=== PATIENT | male | born 1945 | race Caucasian/White ===

== ENCOUNTER 2017-09-30 04:21 | Emergency (ER) | payer OTHER ==
--- NOTE | 2017-09-30 04:40 | PDOC ---
History of Present Illness - General Stated Complaint: CATHETER PROBLEM Time Seen by Provider: 09/30/17 04:40 - History of Present Illness Initial Comments: 09/30/17 04:41 Mr. Lake is an 72 yo male w/ pmh of DM, HTN, afib (not on anticoagulants), prior GI bleed, BPH with recent TURP, and indwelling catheter who presents w/ complaints of clogged catheter. He reports he first noticed that it was clogged around 5pm last night but hoped it would clear by itself. When it did not he presented to ED. The patient denies chest pain, shortness of breath, headache and dizziness. Denies fever, chills, nausea, vomit, diarrhea and constipation. Denies dysuria, frequency, urgency and hematuria. Allergies: Ibuprofen Past History - Past Medical History Allergies/Adverse Reactions: Allergies Allergy/AdvReac Type Severity Reaction Status Date / Time ibuprofen [From Motrin] Allergy Intermediate "STOMACH Verified 09/30/17 05:23 BURST" REQUIRING SX & BLOOD TRANSFUSION. Home Medications: Ambulatory Orders Atorvastatin Ca [Lipitor -] 40 mg PO HS 11/08/14 Calcium Carbonate [Calcium] 500 mg PO ASDIR 11/08/14 Cod Liver Oil 1 each PO ASDIR 11/08/14 Docusate Sodium [Dulcolax Stool Softener] 100 mg PO BID 11/08/14 Enalapril Maleate [Vasotec -] 5 mg PO DAILY 11/08/14 Finasteride [Proscar -] 5 mg PO BID 11/08/14 Folic Acid - 1 mg PO DAILY 11/08/14 Insulin Glargine,Hum.rec.anlog [Lantus Solostar PEN (NF)] 0 units SQ HS Rivaroxaban [Xarelto -] 15 mg PO DAILY 11/08/14 Tamsulosin HCl [Flomax] 0.4 mg PO DAILY 11/08/14 Torsemide [Demadex] 100 mg PO DAILY 11/08/14 Cardiac Disorders: Yes (H/O A FIB.) Diabetes: Yes HTN: Yes - Surgical History Abdominal Surgery: Yes ("STOMACH BURST", HERNIA) Cardiac Surgery: Yes (BYPASS, ABLATION) - Suicide/Smoking/Psychosocial Hx Smoking History: Never smoked Have you smoked in the past 12 months: No Hx Alcohol Use: No Substance Use Type: None Review of Systems - Review of Systems Comments:: 09/30/17 04:48 GENERAL/CONSTITUTIONAL: No fever or chills. No weakness. HEAD, EYES, EARS, NOSE AND THROAT: No change in vision. No ear pain or discharge. No sore throat. CARDIOVASCULAR: No chest pain or shortness of breath RESPIRATORY: No cough, wheezing, or hemoptysis. GASTROINTESTINAL: No nausea, vomiting, diarrhea or constipation. GENITOURINARY: +Inability to use catheter since 5pm last night. MUSCULOSKELETAL: No joint or muscle swelling or pain. No neck or back pain. SKIN: No rash NEUROLOGIC: No headache, vertigo, loss of consciousness, or change in strength/ sensation. ENDOCRINE: No increased thirst. No abnormal weight change HEMATOLOGIC/LYMPHATIC: No anemia, easy bleeding, or history of blood clots. ALLERGIC/IMMUNOLOGIC: No hives or skin allergy. *Physical Exam - Physical Exam Comments: 09/30/17 04:49 GENERAL: Awake, alert, and fully oriented, in no acute distress HEAD: No signs of trauma, normocephalic, atraumatic EYES: PERRLA, EOMI, sclera anicteric, conjunctiva clear ENT: Auricles normal inspection, hearing grossly normal, nares patent, oropharynx clear without exudates. Moist mucosa NECK: Normal ROM, supple, no lymphadenopathy, JVD, or masses LUNGS: No distress, speaks full sentences, clear to auscultation bilaterally HEART: Regular rate and rhythm, normal S1 and S2, no murmurs, rubs or gallops, peripheral pulses normal and equal bilaterally. ABDOMEN: Soft, nontender, normoactive bowel sounds. No guarding, no rebound. No masses EXTREMITIES: Normal inspection, Normal range of motion, no edema. No clubbing or cyanosis. NEUROLOGICAL: Cranial nerves II through XII grossly intact. Normal speech, no focal sensorimotor deficits SKIN: Warm, Dry, normal turgor, no rashes or lesions noted. : Urinary catheter in place. Not currently draining while in ER. Medical Decision Making - Medical Decision Making 09/30/17 06:08 Mr. Lake is a 72 yo male w/ pmh as described who presents with clogged urinary catheter. Catheter flushed successfully and urine no free flowing - 300cc noted added to urinary bag. Will d/c patient to home with instructions to return for any further problems. *DC/Admit/Observation/Transfer Diagnosis at time of Disposition: Urinary catheter insertion/adjustment/removal - Discharge Dispostion Disposition: HOME - Referrals Referrals: Nelda Thakkar [Primary Care Provider] - - Patient Instructions Printed Discharge Instructions: How to Care for Your Barnett Catheter -- Male Additional Instructions: Please return to ER if any further catheter problems, and fever, chills, pain, or other concerning symptoms. - Post Discharge Activity
[2017-09-30 05:23] VITALS: BP 137/63; PULSE 69; TEMP 97.6; BMI 25.0
--- NOTE | 2017-10-05 12:33 | EKG ---
Test Reason : Blood Pressure : / mmHG Vent. Rate : 076 BPM Atrial Rate : 078 BPM P-R Int : 000 ms QRS Dur : 126 ms QT Int : 440 ms P-R-T Axes : 000 057 161 degrees QTc Int : 495 ms ATRIAL FIBRILLATION WITH PVC'S NON-SPECIFIC INTRA-VENTRICULAR CONDUCTION BLOCK OLD INFERIOR INFARCT T WAVE ABNORMALITY, CONSIDER INFEROLATERAL ISCHEMIA ABNORMAL ECG NO PREVIOUS ECGS AVAILABLE Confirmed by LAI COLLINS, ALLISON ([id number]) on 10/05/2017 12:33:44 PM Referred By: Confirmed By:ALLISON HOYT MD
== END 2017-09-30 06:35 | disposition home or self-care (01) ==
LOC: JER 04:21
PROC: 3C1ZX8Z Irrigation of Indwelling Device using Irrigating Substance, External Approach (ICD-10-PCS; principal; 2017-09-30)
DX: T83.098A Other mechanical complication of other urinary catheter, initial encounter (principal)
CPT/HCPCS: 53899; 93005; 93010; 99281-25

== ENCOUNTER 2017-10-05 04:06 | Emergency (ER) | payer OTHER ==
[2017-10-05 04:21] VITALS: BP 156/88; PULSE 68; TEMP 97.4; BMI 25.0
--- NOTE | 2017-10-05 04:33 | PDOC ---
History of Present Illness - General Chief Complaint: Urinary Problem Stated Complaint: UNABLE TO URINATE Time Seen by Provider: 10/05/17 04:15 - History of Present Illness Initial Comments: 10/05/17 04:16 CHIEF COMPLAINT: urinary retention HISTORY OF PRESENT ILLNESS: 72 yo male w/ PMH of DM, HTN, afib (not on anticoagulants), prior GI bleed, BPH with recent TURP, and indwelling catheter who presents w/ concerns of urinary retention. Patient states he went to his urologist today to have indwelling catheter removed "because I've had it in a while." He states he was able to urinate "kind of ok" in office, but after he went home he could only "get a little dribble out, and I haven't urinated in 12 hours now." He reports feeling bloated but denies any pain at this time. He states that he would like to have a correa catheter inserted to manage his retention and he will follow up with his urology MD Yesenia. PAST MEDICAL HISTORY: Denies past medical history FAMILY HISTORY: Denies SOCIAL HISTORY: Denies tobacco, alcohol, illicit drug use. SURGICAL HISTORY: Denies ALLERGIES: ibuprofen REVIEW OF SYSTEMS General/Constitutional: Denies fever or chills. Denies weakness, weight change. HEENT: Denies change in vision. Denies ear pain or discharge. Denies sore throat. Cardiovascular: Denies chest pain or shortness of breath. Respiratory: Denies cough, wheezing, or hemoptysis. Gastrointestinal: Denies nausea, vomiting, diarrhea or constipation. Denies rectal bleeding. Genitourinary: Denies dysuria, frequency, or change in urination. Musculoskeletal: Denies joint or muscle swelling or pain. Denies neck or back pain. Skin and breasts: Denies rash or easy bruising. Neurologic: Denies headache, vertigo, loss of consciousness, or loss of sensation. Psychiatric: Denies depression or anxiety. Endocrine: Denies increased thirst. Denies abnormal weight change. Hematologic/Lymphatic: Denies anemia, easy bleeding, or history of blood clots. Allergic/Immunologic: Denies hives or skin allergy. Denies latex allergy. PHYSICAL EXAM General Appearance: Well-appearing, appropriately dressed. No apparent distress , no intoxication. HEENT: EOMI, PERRLA, normal ENT inspection, normal voice, TMs normal, pharynx normal. No conjunctival pallor. No photophobia, scleral icterus. Neck: Supple. Trachea midline. No tenderness, rigidity, carotid bruit, stridor , lymphadenopathy, or thyromegaly. Respiratory/Chest: Lungs CTAB. No shortness of breath, chest tenderness, respiratory distress, accessory muscle use. No crackles, rales, rhonchi, stridor , wheezing, dullness Cardiovascular: RRR. S1, S2. No JVD, murmur, bradycardia, tachycardia. Vascular Pulses: Dorsalis-Pedis (R): 2+, Dorsalis-Pedis (L): 2+ Gastrointestinal/Abdominal: Normal bowel sounds. Abdomen soft, non-distended. No tenderness or rebound tenderness. No organomegaly, pulsatile mass, guarding , hernia, hepatomegaly, splenomegaly. Lymphatic: No adenopathy, tenderness. Musculoskeletal/Extremities: Normal inspection. FROM of all extremities, normal capillary refill. Pelvis Stable. No CVA tenderness. No tenderness to extremities, pedal edema, swelling, erythema or deformity. Integumentary: Appropriate color, dry, warm. No cyanosis, erythema, jaundice or rash Neurologic: firebreak cutter II-XII intact. Fully oriented, alert. Appropriate mood/affect. Motor strength 5/5. No appreciable EOM palsy, facial droop or sensory deficit. 10/05/17 04:33 Past History - Past Medical History Allergies/Adverse Reactions: Allergies Allergy/AdvReac Type Severity Reaction Status Date / Time ibuprofen [From Motrin] Allergy Intermediate "STOMACH Verified 10/05/17 04:08 BURST" REQUIRING SX & BLOOD TRANSFUSION. Home Medications: Ambulatory Orders Cod Liver Oil 1 each PO ASDIR 11/08/14 Docusate Sodium [Dulcolax Stool Softener] 50 mg PO BID 11/08/14 Finasteride [Proscar -] 40 mg PO BID 11/08/14 Folic Acid - 1 mg PO DAILY 11/08/14 Calcitriol [Rocaltrol -] 0.25 mcg PO TID 09/30/17 Diclofenac Sodium [Solaraze] 100 gm TP 09/30/17 Magnesium Hydroxide [Milk of Magnesia] 400 mg PO QID 09/30/17 Misoprostol 200 mcg PO TID 09/30/17 Nitrofurantoin Macrocrystal [Macrodantin] 100 mg PO BID 09/30/17 Pantoprazole Sodium [Protonix] 40 mg PO BID 09/30/17 Potassium Chloride [Klor-Con 10] 20 meq PO DAILY 09/30/17 Sennosides [Senna] 8.6 mg PO ONCE 09/30/17 Sodium Bicarbonate 650 mg PO TID 09/30/17 Cardiac Disorders: Yes (H/O A FIB.) COPD: No Diabetes: Yes HTN: Yes - Surgical History Abdominal Surgery: Yes ("STOMACH BURST", HERNIA) Cardiac Surgery: Yes (BYPASS, ABLATION) - Suicide/Smoking/Psychosocial Hx Smoking History: Never smoked Have you smoked in the past 12 months: No Hx Alcohol Use: No Drug/Substance Use Hx: No Substance Use Type: None Medical Decision Making - Medical Decision Making 72 yo male w/ PMH of DM, HTN, afib (not on anticoagulants), prior GI bleed, BPH with recent TURP, and indwelling catheter who presents w/ concerns of urinary retention. -correa catheter inserted -Ua, UCx 10/05/17 06:27 UA + for UTI. Patient reports he is already taking Macrobid, he states urology started him on that medicatoin "about a week ago" and still has 3 weeks left of a 30 day course. Advised patient to continue medication as prescribed and follow up with urologist today as planned. Advised patient of signs and symptoms for return to ED. Patient verbalized understanding and agrees to plan. *DC/Admit/Observation/Transfer Diagnosis at time of Disposition: Urinary catheter insertion/adjustment/removal Urinary tract infection associated with catheterization of urinary tract Qualifiers: Indwelling urinary catheter type: indwelling urethral catheter Encounter type: subsequent encounter Qualified Code(s): T83.511D - Infection and inflammatory reaction due to indwelling urethral catheter, subsequent encounter; N39.0 - Urinary tract infection, site not specified; N39.0 - Urinary tract infection, site not specified - Discharge Dispostion Disposition: HOME Condition at time of disposition: Stable Admit: No - Referrals - Patient Instructions Printed Discharge Instructions: DI for Urinary Retention in Men, DI for Urinary Tract Infection (UTI) Additional Instructions: As discussed, please follow up with Dr. Patterson today as planned. Continue taking the antibiotics Dr. Patterson prescribed. If you do not hear back regarding your urine culture in 2-3 days, please call us to confirm that you have the correct antibiotics for your infection. If you develop any fever, chills, nausea, vomiting, diarrhea, or any new or worsening symptoms, please return to the ER. - Post Discharge Activity
[2017-10-05 05:59] LABS: URINE APPEARANCE CLOUDY; URINE BILIRUBIN NEGATIVE (NEGATIVE); URINE BLOOD 2+ (NEGATIVE); URINE COLOR YELLOW; URINE GLUCOSE (UA) NEGATIVE (NEGATIVE); URINE KETONE NEGATIVE (NEGATIVE); URINE NITRITE NEGATIVE (NEGATIVE); URINE UROBILINOGEN NEGATIVE mg/dL (0.2-1.0)
[2017-10-05 06:05] LABS: URINE LEUK ESTERASE 3+ (NEGATIVE); URINE PROTEIN 2+ (NEGATIVE)
[2017-10-05 06:06] LABS: URINE BACTERIA MANY /hpf (NONE SEEN); URINE HYALINE CAST 2 /lpf; URINE MUCUS RARE
== END 2017-10-05 06:36 | disposition home or self-care (01) ==
LOC: JER 04:06
DX: T83.511A Infection and inflammatory reaction due to indwelling urethral catheter, initial encounter (principal); N39.0 Urinary tract infection, site not specified; I10 Essential (primary) hypertension; E11.9 Type 2 diabetes mellitus without complications; I48.91 Unspecified atrial fibrillation
CPT/HCPCS: 81003; 81015; 87086; 87186; 99281-25

== ENCOUNTER 2017-10-14 00:10 | Emergency (ER) | payer OTHER ==
--- NOTE | 2017-10-14 01:23 | PDOC ---
History of Present Illness - General Stated Complaint: CATHETER PROBLEM Time Seen by Provider: 10/14/17 01:13 - History of Present Illness Initial Comments: 10/14/17 01:31 Patient is a 72-year-old male with past medical history of DM, HTN, A. fib on several toe, prior GI bleed, BPH with recent TURP and current indwelling catheter who presents to the emergency department today stating that he feels like his catheter is clogged. He states that he emptied his urinary bag this afternoon. Since then he is only seen minimal output in the back. He states that his bladder feels full. He is currently on antibiotics for UTI. Denies dysuria frequency and hematuria. Denies fevers, chills, abdominal pain, shortness of breath, chest pain, nausea, vomiting and diarrhea. Past History - Past Medical History Allergies/Adverse Reactions: Allergies Allergy/AdvReac Type Severity Reaction Status Date / Time ibuprofen [From Motrin] Allergy Intermediate "STOMACH Verified 10/14/17 01:40 BURST" REQUIRING SX & BLOOD TRANSFUSION. Home Medications: Ambulatory Orders Cod Liver Oil 1 each PO ASDIR 11/08/14 Docusate Sodium [Dulcolax Stool Softener] 50 mg PO BID 11/08/14 Finasteride [Proscar -] 40 mg PO BID 11/08/14 Folic Acid - 1 mg PO DAILY 11/08/14 Calcitriol [Rocaltrol -] 0.25 mcg PO TID 09/30/17 Diclofenac Sodium [Solaraze] 100 gm TP 09/30/17 Magnesium Hydroxide [Milk of Magnesia] 400 mg PO QID 09/30/17 Misoprostol 200 mcg PO TID 09/30/17 Nitrofurantoin Macrocrystal [Macrodantin] 100 mg PO BID 09/30/17 Pantoprazole Sodium [Protonix] 40 mg PO BID 09/30/17 Potassium Chloride [Klor-Con 10] 20 meq PO DAILY 09/30/17 Sennosides [Senna] 8.6 mg PO ONCE 09/30/17 Sodium Bicarbonate 650 mg PO TID 09/30/17 Cardiac Disorders: Yes (H/O A FIB.) COPD: No Diabetes: Yes HTN: Yes - Surgical History Abdominal Surgery: Yes ("STOMACH BURST", HERNIA) Cardiac Surgery: Yes (BYPASS, ABLATION) - Suicide/Smoking/Psychosocial Hx Smoking History: Never smoked Have you smoked in the past 12 months: No Hx Alcohol Use: No Drug/Substance Use Hx: No Substance Use Type: None *DC/Admit/Observation/Transfer Diagnosis at time of Disposition: Urinary catheter insertion/adjustment/removal - Discharge Dispostion Disposition: HOME Condition at time of disposition: Good Admit: No - Referrals - Patient Instructions Printed Discharge Instructions: How to Care for Your Barnett Catheter -- Male Additional Instructions: The catheter was flushed today. Please keep your follow-up appointment with Dr. Patterson on Monday. Return to the emergency department if your catheter becomes clogged, or if develops fevers or have any other new or concerning symptoms. - Post Discharge Activity
--- NOTE | 2017-10-14 02:08 | PDOC ---
*Physical Exam - Vital Signs Last Vital Signs Temp Pulse Resp BP Pulse Ox 98.3 F 89 18 129/63 99 10/14/17 01:37 10/14/17 01:37 10/14/17 01:37 10/14/17 01:37 10/14/17 01:37 - Physical Exam Comments: 10/14/17 02:08 The patient was examined by [SINAI Aguirre] under my direct supervision. I personally evaluated the patient. I concur with the above findings and the plan of care. *DC/Admit/Observation/Transfer Diagnosis at time of Disposition: Urinary catheter insertion/adjustment/removal - Discharge Dispostion Disposition: HOME Condition at time of disposition: Good - Referrals - Patient Instructions Printed Discharge Instructions: How to Care for Your Barnett Catheter -- Male Additional Instructions: The catheter was flushed today. Please keep your follow-up appointment with Dr. Patterson on Monday. Return to the emergency department if your catheter becomes clogged, or if develops fevers or have any other new or concerning symptoms. - Post Discharge Activity
[2017-10-14 02:30] LABS: URINE APPEARANCE TURBID; URINE BILIRUBIN NEGATIVE (NEGATIVE); URINE BLOOD 1+ (NEGATIVE); URINE COLOR YELLOW; URINE GLUCOSE (UA) NEGATIVE (NEGATIVE); URINE KETONE NEGATIVE (NEGATIVE); URINE NITRITE NEGATIVE (NEGATIVE); URINE UROBILINOGEN NEGATIVE mg/dL (0.2-1.0)
[2017-10-14 02:34] LABS: URINE LEUK ESTERASE 3+ (NEGATIVE); URINE PROTEIN 2+ (NEGATIVE)
[2017-10-14 02:37] LABS: URINE BACTERIA FEW /hpf (NONE SEEN); URINE MUCUS RARE
[2017-10-14 03:12] VITALS: BP 129/63; PULSE 89; TEMP 98.3; BMI 25.0
== END 2017-10-14 02:54 | disposition home or self-care (01) ==
LOC: JER 00:10
PROC: 3C1ZX8Z Irrigation of Indwelling Device using Irrigating Substance, External Approach (ICD-10-PCS; principal; 2017-10-14)
DX: T83.098A Other mechanical complication of other urinary catheter, initial encounter (principal); I10 Essential (primary) hypertension; N40.0 Benign prostatic hyperplasia without lower urinary tract symptoms; Z98.890 Other specified postprocedural states
CPT/HCPCS: 53899; 81003; 81015; 82962; 87086; 87186; 99283-25

== ENCOUNTER 2017-10-18 19:03 | Inpatient (IN) | payer OTHER ==
--- NOTE | 2017-10-18 21:04 | PDOC ---
History of Present Illness - General History Source: Patient Exam Limitations: No Limitations - History of Present Illness Initial Comments: 10/18/17 21:47 The patient is a 72 year old male with a significant past medical history of hypertension, hyperlipidemia, diabetes, GERD, AFib(on Xarelto), CAD, BPH, neurogenic bladder, GI bleed, chronic UTIs, who presents to the emergency department complaining of urinary retention for approximately 1 day. The patient reports his last bladder movement was at approximately 14:00 today, where he only expelled several droplets. Patient reports associated lower abdominal tenderness and distension. Patient reports he recently had a catheter removed 2 days ago, which he had over the past 1.5 years secondary to urinary retention over the past year. Patient reports blood was seen at the time of the catheter removal. Patient was placed on Clindamycin and Nitrofurantoin. He denies any recent dysuria or frequency. He denies any recent fever, chills, headache, or dizziness. He denies any nausea or vomiting. He denies any recent travel or sick contacts. Allergies: Ibuprofen Past Surgical History: Defibrillator, Cardiac bypass, Hernia repair Social History: Non smoker. No ETOH or recreational drug use. Urologist: Dr. Patterson <Madi Severino - Last Filed: 10/18/17 21:47> <Danielle Mills - Last Filed: 10/19/17 00:40> - General Chief Complaint: Urinary Problem Stated Complaint: PAIN Time Seen by Provider: 10/18/17 20:44 Past History <Madi Severino - Last Filed: 10/18/17 21:47> - Past Medical History Cardiac Disorders: Yes (H/O A FIB.) COPD: No Diabetes: Yes HTN: Yes - Surgical History Abdominal Surgery: Yes ("STOMACH BURST", HERNIA) Cardiac Surgery: Yes (BYPASS, ABLATION) - Suicide/Smoking/Psychosocial Hx Smoking History: Unknown if ever smoked Have you smoked in the past 12 months: No Information on smoking cessation initiated: No Hx Alcohol Use: No Drug/Substance Use Hx: No Substance Use Type: None <Danielle Mills - Last Filed: 10/19/17 00:40> - Past Medical History Allergies/Adverse Reactions: Allergies Allergy/AdvReac Type Severity Reaction Status Date / Time ibuprofen [From Motrin] Allergy Intermediate "STOMACH Verified 10/18/17 20:05 BURST" REQUIRING SX & BLOOD TRANSFUSION. Home Medications: Ambulatory Orders Cod Liver Oil 1 each PO ASDIR 11/08/14 Docusate Sodium [Dulcolax Stool Softener] 50 mg PO BID 11/08/14 Finasteride [Proscar -] 40 mg PO BID 11/08/14 Folic Acid - 1 mg PO DAILY 11/08/14 Calcitriol [Rocaltrol -] 0.25 mcg PO TID 09/30/17 Diclofenac Sodium [Solaraze] 100 gm TP DAILY 09/30/17 Magnesium Hydroxide [Milk of Magnesia] 400 mg PO QID 09/30/17 Misoprostol 200 mcg PO TID 09/30/17 Nitrofurantoin Macrocrystal [Macrodantin] 100 mg PO BID 09/30/17 Pantoprazole Sodium [Protonix] 40 mg PO BID 09/30/17 Potassium Chloride [Klor-Con 10] 20 meq PO DAILY 09/30/17 Sennosides [Senna] 8.6 mg PO ONCE 09/30/17 Sodium Bicarbonate 650 mg PO TID 09/30/17 Review of Systems - Review of Systems Able to Perform ROS?: Yes Comments:: 10/18/17 21:47 GENERAL/CONSTITUTIONAL: No fever or chills. No weakness. HEAD, EYES, EARS, NOSE AND THROAT: No change in vision. No ear pain or discharge. No sore throat. GASTROINTESTINAL: Yes abdominal pain, abdominal distention. No nausea, vomiting , diarrhea or constipation. GENITOURINARY: Yes urinary retention, blood from catheter removal. No dysuria, frequency. CARDIOVASCULAR: No chest pain or shortness of breath. RESPIRATORY: No cough, wheezing, or hemoptysis. MUSCULOSKELETAL: No joint or muscle swelling or pain. No neck or back pain. SKIN: No rash NEUROLOGIC: No headache, vertigo, loss of consciousness, or change in strength/ sensation. ENDOCRINE: No increased thirst. No abnormal weight change. HEMATOLOGIC/LYMPHATIC: No anemia, easy bleeding, or history of blood clots. ALLERGIC/IMMUNOLOGIC: No hives or skin allergy. <Madi Severino - Last Filed: 10/18/17 21:47> *Physical Exam - Vital Signs Last Vital Signs Temp Pulse Resp BP Pulse Ox 97.1 F L 82 20 168/82 100 10/18/17 20:05 10/18/17 20:05 10/18/17 20:05 10/18/17 20:05 10/18/17 20:05 - Physical Exam Comments: 10/18/17 21:47 Constitutional: Awake, alert, oriented. No acute distress. Head: Normocephalic. Atraumatic Eyes: PERRL. EOMI. Conjunctivae are not pale. ENT: Mucous membranes are moist and intact. Posterior pharynx without exudates or erythema. Uvula midline. Neck: Supple. Full ROM. No lymphadenopathy. Cardiovascular: Regular rate. Regular rhythm. S1, S2 regular. Distal pulses are 2+ and symmetric. Pulmonary/Chest: No evidence of respiratory distress. Clear to auscultation bilaterally No wheezing, rales or rhonchi. Abdominal: Mild suprapubic and lower abdominal tenderness. Mildly distended. Palpable bladder. Soft. No rebound, guarding or rigidity. No organomegaly. No palpable masses. Good bowel sounds. Back: No CVA tenderness. Musculoskeletal: No edema. No cyanosis. No clubbing. Full range of motion in all extremities. No calf tenderness. Radial/pedal pulses are intact and 2+ bilaterally Skin: Skin is warm and dry. No petechiae. No purpura. Neurological: Alert and oriented to person, place, and time. Cranial nerves II -XII are grossly intact. Normal speech. Strength is grossly symmetric. No sensory deficits. Psychiatric: Good eye contact. Normal interaction, affect and behavior. <Madi Severino - Last Filed: 10/18/17 21:47> - Vital Signs Last Vital Signs Temp Pulse Resp BP Pulse Ox 97.1 F L 82 20 168/82 100 10/18/17 20:05 10/18/17 20:05 10/18/17 20:05 10/18/17 20:05 10/18/17 20:05 <Danielle Mills - Last Filed: 10/19/17 00:40> ED Treatment Course - LABORATORY CBC & Chemistry Diagram: 10/18/17 21:00 10/18/17 23:26 <Danielle Mills - Last Filed: 10/19/17 00:40> Medical Decision Making - Medical Decision Making 10/18/17 21:03 a/p: 72yo male with urinary retention -correa removed 2 days ago -only able to pass drops of urine will cehck labs, place correa will check ua/ucx 10/18/17 23:34 pt with a uti on labs will start iv abx last culture resistent to zosyn will start merrem will place in obs pending re-eval correa in place with cloudy urine afebrile and no elevated wbc on clinda and macrobid as outpt still with UTI 10/19/17 00:[address] Fontenot - accepts pt to med/surg will place consults to Dr. Shukla (uro) and Dr. Florez (ID) <Danielle Mills - Last Filed: 10/19/17 00:40> *DC/Admit/Observation/Transfer - Attestations Scribe Attestion: 10/18/17 21:47 Documentation prepared by Madi Severino, acting as medical typist for Danielle Mills DO. <Madi Severino - Last Filed: 10/18/17 21:47> - Discharge Dispostion Admit: Yes - Attestations Physician Attestion: 10/18/17 23:36 I, Dr. Danielle Mills DO, attest that this document has been prepared under my direction and personally reviewed by me in its entirety. I further attest, that it accurately reflects all work, treatment, procedures and medical decision -making performed by me. <Danielle Mills - Last Filed: 10/19/17 00:40> Diagnosis at time of Disposition: Urinary catheter insertion/adjustment/removal, Complicated UTI (urinary tract infection), KIRIT (acute kidney injury) - Discharge Dispostion Condition at time of disposition: Stable
[2017-10-18 22:06] LABS: BASO % 1.4 % (0-2.0); EOS % 1.8 % (0-4.5); HEMATOCRIT 31.2 % (35.4-49); LYMPH % 12.4 % (8-40); MCH 27.2 pg (25.7-33.7); MCHC 32.1 g/dl (32.0-35.9); MEAN CELL VOLUME 84.8 fl (80-96); MEAN PLT VOLUME 9.5 fl (7.5-11.1); MONO % 13.2 % (3.8-10.2); NEUT % 71.2 % (42.8-82.8); PLATELET COUNT 280 K/MM3 (134-434); RBC 3.68 M/mm3 (4.00-5.60); RDW 17.5 % (11.9-15.9); WHITE BLOOD COUNT 6.3 K/mm3 (4.0-10.0)
[2017-10-18 22:11] LABS: URINE APPEARANCE CLOUDY; URINE BILIRUBIN NEGATIVE (NEGATIVE); URINE BLOOD 1+ (NEGATIVE); URINE COLOR LTYELLOW; URINE GLUCOSE (UA) NEGATIVE (NEGATIVE); URINE KETONE NEGATIVE (NEGATIVE); URINE NITRITE NEGATIVE (NEGATIVE); URINE UROBILINOGEN NEGATIVE mg/dL (0.2-1.0)
[2017-10-18 22:20] LABS: URINE LEUK ESTERASE 3+ (NEGATIVE); URINE PROTEIN 2+ (NEGATIVE)
[2017-10-18 22:22] LABS: EPI CELLS RARE /HPF (FEW); URINE BACTERIA RARE /hpf (NONE SEEN); URINE HYALINE CAST 4 /lpf; URINE MUCUS RARE
[2017-10-18] MEDS ORDERED: SODIUM CHLORIDE 0.9% 1000 ML INFUS.BAG IV ONE (23:46)
[2017-10-19 00:32] LABS: ALBUMIN 2.6 g/dl (3.4-5.0); ALK PHOS 83 U/L (45-117); ANION GAP 11 (8-16); BILIRUBIN,TOTAL 0.2 mg/dL (0.2-1.0); BLOOD UREA NITROGEN 53 mg/dL (7-18); CALCIUM 7.1 mg/dL (8.5-10.1); CHLORIDE 113 mmol/L (98-107); CO2 19 mmol/L (21-32); CREATININE 1.8 mg/dL (0.7-1.3); GLUCOSE,RANDOM 124 mg/dL (74-106); POTASSIUM 3.4 mmol/L (3.5-5.1); SGOT/AST 14 U/L (15-37); SGPT/ALT 14 U/L (12-78); SODIUM 143 mmol/L (136-145); TOT PROT 5.9 g/dl (6.4-8.2)
[2017-10-19] MEDS ORDERED: MEROPENEM 1 GM in DEXTROSE 5%-WATER - 100 ML IVPB ONE ×2 (01:00→23:36)
--- NOTE | 2017-10-19 01:59 | PN ---
Teaching Attending Note Name of Resident: Stephen Moran ATTENDING PHYSICIAN STATEMENT I saw and evaluated the patient. I reviewed the resident's note and discussed the case with the resident. I agree with the resident's findings and plan as documented. SUBJECTIVE: 70 M with pmhx. of HTN, HLD, DM, GERD, AFib on Xarelto, CAD, BPH, Neurogenic bladder, GI bleed, Chronic UTIs who presents to ED with complaint of urinary retention for approximately 1 day. Stats he had his correa removed 2 days ago and today he was able to only get a few drops of urine. States he has frequent UTI's so he was placed on Clindamycin and Nitrofurantoin. No dysuria or frequency. No fevers or chills. No chest pain or pressure. OBJECTIVE: Physical: VS: Vital Signs Period Temp Pulse Resp BP Sys/Stewart Pulse Ox Last 24 Hr 97.1 F-98.2 F 73-82 18-20 146-168/82-97 96-100 GEN: NAD, Resting in bed, AAOx3 HEENT: NCAT, PERRL, throat without erythema or exudates CARD: RRR S1, S2 RESP: CTAB ABD: BSx4, NTD to palpation, Umbilical hernia EXT: - C/C/E CBCD WBC 6.3 K/mm3 (4.0-10.0) 10/18/17 21:00 RBC 3.68 M/mm3 (4.00-5.60) L 10/18/17 21:00 Hgb 10.0 GM/dL (11.7-16.9) L 10/18/17 21:00 Hct 31.2 % (35.4-49) L 10/18/17 21:00 MCV 84.8 fl (80-96) 10/18/17 21:00 MCHC 32.1 g/dl (32.0-35.9) 10/18/17 21:00 RDW 17.5 % (11.9-15.9) H 10/18/17 21:00 Plt Count 280 K/MM3 (134-434) 10/18/17 21:00 MPV 9.5 fl (7.5-11.1) 10/18/17 21:00 CMP Sodium 143 mmol/L (136-145) 10/18/17 23:26 Potassium 3.4 mmol/L (3.5-5.1) L 10/18/17 23:26 Chloride 113 mmol/L (98-107) H 10/18/17 23:26 Carbon Dioxide 19 mmol/L (21-32) L 10/18/17 23:26 Anion Gap 11 (8-16) 10/18/17 23:26 BUN 53 mg/dL (7-18) H 10/18/17 23:26 Creatinine 1.8 mg/dL (0.7-1.3) H 10/18/17 23:26 Creat Clearance w eGFR 37.17 (>60) 10/18/17 23:26 Random Glucose 124 mg/dL (74-106) H 10/18/17 23:26 Calcium 7.1 mg/dL (8.5-10.1) L 10/18/17 23:26 Total Bilirubin 0.2 mg/dL (0.2-1.0) 10/18/17 23:26 AST 14 U/L (15-37) L 10/18/17 23:26 ALT 14 U/L (12-78) 10/18/17 23:26 Alkaline Phosphatase 83 U/L (45-117) 10/18/17 23:26 Total Protein 5.9 g/dl (6.4-8.2) L 10/18/17 23:26 Albumin 2.6 g/dl (3.4-5.0) L 10/18/17 23:26 Urine Test Results Urine Color Ltyellow 10/18/17 21:00 Urine Appearance Cloudy 10/18/17 21:00 Urine pH 5.0 (5.0-8.0) 10/18/17 21:00 Ur Specific [place] 1.010 (1.001-1.035) 10/18/17 21:00 Urine Protein 2+ (NEGATIVE) H 10/18/17 21:00 Urine Glucose (UA) Negative (NEGATIVE) 10/18/17 21:00 Urine Ketones Negative (NEGATIVE) 10/18/17 21:00 Urine Blood 1+ (NEGATIVE) H 10/18/17 21:00 Urine Nitrite Negative (NEGATIVE) 10/18/17 21:00 Urine Bilirubin Negative (NEGATIVE) 10/18/17 21:00 Ur Leukocyte Esterase 3+ (NEGATIVE) H 01/31/18 21:00 Ur Epithelial Cells Rare /HPF (FEW) 10/18/17 21:00 Urine Bacteria Rare /hpf (NONE SEEN) 10/18/17 21:00 Urine Mucus Rare 10/18/17 21:00 Ambulatory Orders Cod Liver Oil 1 each PO ASDIR 11/08/14 Docusate Sodium [Dulcolax Stool Softener] 50 mg PO BID 11/08/14 Finasteride [Proscar -] 40 mg PO BID 11/08/14 Folic Acid - 1 mg PO DAILY 11/08/14 Calcitriol [Rocaltrol -] 0.25 mcg PO TID 09/30/17 Diclofenac Sodium [Solaraze] 100 gm TP DAILY 09/30/17 Magnesium Hydroxide [Milk of Magnesia] 400 mg PO QID 09/30/17 Misoprostol 200 mcg PO TID 09/30/17 Nitrofurantoin Macrocrystal [Macrodantin] 100 mg PO BID 09/30/17 Pantoprazole Sodium [Protonix] 40 mg PO BID 09/30/17 Potassium Chloride [Klor-Con 10] 20 meq PO DAILY 09/30/17 Sennosides [Senna] 8.6 mg PO ONCE 09/30/17 Sodium Bicarbonate 650 mg PO TID 09/30/17 ASSESSMENT AND PLAN: 70 M with pmhx. of HTN, HLD, DM, GERD, AFib on Xarelto, CAD, BPH, Neurogenic bladder, GI bleed, Chronic UTIs who presents to ED with complaint of urinary retention for approximately 1 day, being admitted for ESBL E-coli UTI and KIRIT, 1.) UTI - Prior Cx + for ESBL E-Coli - Cx - C/W Meropenem 1g Q 12h - ID consult 2.) KIRIT? CKD - U lytes - IVF - Renal US - Hold NSAID 3.) Afib - Rate Controlle - C/W Xarelto Renally doses - Monitor H&H and for Hematuria 4.) DM - FS - RAISS 5.) GERD - C/W Protonix 6.) Dvt PPx - On Xarelto Place in Med-Sx
[2017-10-19] MEDS ORDERED: COD LIVER OIL PO SCH (02:00)
--- NOTE | 2017-10-19 02:02 | HP ---
CHIEF COMPLAINT: urine retention HISTORY OF PRESENT ILLNESS: The patient is a 72 year old male with a significant past medical history of hypertension, hyperlipidemia, diabetes, GERD, AFib(on Xarelto), CAD, BPH, neurogenic bladder, GI bleed, chronic UTIs, who presents to the emergency department complaining of urinary retention for approximately 1 day. Patient reports he recently had a catheter removed 2 days ago, which he had over the past 1.5 years secondary to urinary retention over the past year. Reports he has catheter since 2014, in August 2017 prostate surgery was done in [facility] and later on came to [facility] because of bleeding and was discharged on clinda and NFT in early September 2017 with catheter in situ. Patient also reports he has multiple episodes of uti because of urine retention and has been treated o multiple antibiotics. He denies any recent dysuria or frequency. He denies any recent fever, chills, headache, or dizziness. He denies any nausea or vomiting. He denies any recent travel or sick contacts. recent travel; no PMH: as above Allergies: Ibuprofen Past Surgical History: Defibrillator, Cardiac bypass, Hernia repair, laparotomy for intestinal perforation. Social History: Non smoker. No ETOH or recreational drug use. Urologist: Dr. Patterson ER course was notable for: (1)cbc, cmp (2)ekg (3) urine culture : esbl, meropenem 1gm ibuprofen [From Motrin] Allergy (Intermediate, Verified 10/18/17 20:05) "STOMACH BURST" REQUIRING SX & BLOOD TRANSFUSION. HOME MEDICATIONS: Home Medications Medication Instructions Recorded Cod Liver Oil 1 each PO ASDIR 11/08/14 Docusate Sodium [Dulcolax Stool 50 mg PO BID 11/08/14 Softener] Finasteride [Proscar -] 40 mg PO BID 11/08/14 Folic Acid - 1 mg PO DAILY 11/08/14 Calcitriol [Rocaltrol -] 0.25 mcg PO TID 09/30/17 Diclofenac Sodium [Solaraze] 100 gm TP DAILY 09/30/17 Magnesium Hydroxide [Milk of 400 mg PO QID 09/30/17 Magnesia] Misoprostol 200 mcg PO TID 09/30/17 Nitrofurantoin Macrocrystal 100 mg PO BID 09/30/17 [Macrodantin] Pantoprazole Sodium [Protonix] 40 mg PO BID 09/30/17 Potassium Chloride [Klor-Con 10] 20 meq PO DAILY 09/30/17 Sennosides [Senna] 8.6 mg PO ONCE 09/30/17 Sodium Bicarbonate 650 mg PO TID 09/30/17 REVIEW OF SYSTEMS CONSTITUTIONAL: Absent: fever, chills, diaphoresis, HEENT: Absent: rhinorrhea, nasal congestion, throat pain, CARDIOVASCULAR: Absent: chest pain, syncope, palpitations, lightheadedness, peripheral edema RESPIRATORY: Absent: cough, shortness of breath, orthopnea, wheezing, stridor, hemoptysis GASTROINTESTINAL: Absent: abdominal pain, abdominal distension, nausea, vomiting, diarrhea, constipation, GENITOURINARY: Absent: dysuria, frequency, urgency, hesitancy, flank pain, genital pain NEUROLOGIC: Absent: headache, focal weakness or paresthesias, dizziness, PSYCHIATRIC: Absent: anxiety, depression, PHYSICAL EXAMINATION Vital Signs - 24 hr 10/18/17 10/19/17 20:05 01:27 Temperature 97.1 F L 98.2 F Pulse Rate 82 Pulse Rate [ 73 Apical] Respiratory 20 18 Rate Blood Pressure 168/82 Blood Pressure 146/97 [Left Arm] O2 Sat by Pulse 100 96 Oximetry (%) GENERAL: Awake, alert, and fully oriented, in no acute distress. HEAD: Normal with no signs of trauma. EARS, NOSE, THROAT: Ears normal, nares patent, oropharynx clear without exudates. Moist mucous membranes. NECK: Normal range of motion, supple without lymphadenopathy, JVD, or masses. LUNGS: Breath sounds equal, clear to auscultation bilaterally. No wheezes, and no crackles. No accessory muscle use. HEART: irreregular s1s2 normal ABDOMEN: Soft, nontender, not distended, normoactive bowel sounds, no guarding, no rebound, no masses. midline scar present, incision hernia. UPPER EXTREMITIES: 2+ pulses, warm, well-perfused. LOWER EXTREMITIES: warm, No calf tenderness. No peripheral edema. PSYCHIATRIC: Cooperative. SKIN: Warm, dry, Laboratory Results - last 24 hr 10/18/17 10/18/17 10/18/17 21:00 21:00 21:00 WBC 6.3 RBC 3.68 L Hgb 10.0 L Hct 31.2 L MCV 84.8 MCH 27.2 MCHC 32.1 RDW 17.5 H Plt Count 280 MPV 9.5 Neutrophils % 71.2 Lymphocytes % 12.4 Monocytes % 13.2 H Eosinophils % 1.8 Basophils % 1.4 Sodium Cancelled Potassium Cancelled Chloride Cancelled Carbon Dioxide Cancelled Anion Gap Cancelled BUN Cancelled Creatinine Cancelled Creat Clearance w eGFR Cancelled Random Glucose Cancelled Calcium Cancelled Total Bilirubin Cancelled AST Cancelled ALT Cancelled Alkaline Phosphatase Cancelled Total Protein Cancelled Albumin Cancelled Urine Color Ltyellow Urine Appearance Cloudy Urine pH 5.0 Ur Specific [place] 1.010 Urine Protein 2+ H Urine Glucose (UA) Negative Urine Ketones Negative Urine Blood 1+ H Urine Nitrite Negative Urine Bilirubin Negative Urine Urobilinogen Negative Ur Leukocyte Esterase 3+ H Urine WBC (Auto) 1048 Urine RBC (Auto) 38 Ur Epithelial Cells Rare Urine Bacteria Rare Hyaline Casts 4 Urine Mucus Rare 10/18/17 23:26 WBC RBC Hgb Hct MCV MCH MCHC RDW Plt Count MPV Neutrophils % Lymphocytes % Monocytes % Eosinophils % Basophils % Sodium 143 Potassium 3.4 L Chloride 113 H Carbon Dioxide 19 L Anion Gap 11 BUN 53 H Creatinine 1.8 H Creat Clearance w eGFR 37.17 Random Glucose 124 H Calcium 7.1 L Total Bilirubin 0.2 AST 14 L ALT 14 Alkaline Phosphatase 83 Total Protein 5.9 L Albumin 2.6 L Urine Color Urine Appearance Urine pH Ur Specific [place] Urine Protein Urine Glucose (UA) Urine Ketones Urine Blood Urine Nitrite Urine Bilirubin Urine Urobilinogen Ur Leukocyte Esterase Urine WBC (Auto) Urine RBC (Auto) Ur Epithelial Cells Urine Bacteria Hyaline Casts Urine Mucus ASSESSMENT/PLAN: The patient is a 72 year old male with a significant past medical history of hypertension, hyperlipidemia, diabetes, GERD, AFib(on Xarelto), CAD, BPH, neurogenic bladder, GI bleed, chronic UTIs. Came to hospital for urinary retention and found to have uti with esbl. medicine list confirmed with patient. Urinary retention with UTI correa placed in er urine culture: esbl continue with meropenem ID consult: dr haines urology consult for chronic urinary retention monitor intake and output monitor vitals. 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 ( h/o hematuria) monitor haemoglobin. DM blood glucose monitoring sliding scale GERD continue with protonix home med hypokalemia monitor on kdur pseudohypocalcemia corrected 8.5 fluid: orally allowed electrolyte: repeat in am nutrition; diabetic diet dvt pro: on xarelto gi pro; on protonix dispo: tele Visit type - Emergency Visit Emergency Visit: Yes ED Registration Date: 10/19/17 Care time: The patient presented to the Emergency Department on the above date and was hospitalized for further evaluation of their emergent condition. - New Patient This patient is new to me today: Yes Date on this admission: 10/19/17 - Critical Care Critical Care patient: No
[2017-10-19] MEDS ORDERED: SENNOSIDES 8.6MG TABLET (FP) PO PRN (02:24)
[2017-10-19 03:47] VITALS: BMI 28.7
[2017-10-19] MEDS ORDERED: NITROFURANTOIN MACROCRYSTAL 50 MG CAPSULE (FP) PO SCH (06:00)
[2017-10-19] MEDS: INSULIN SLIDING SCALE (NOVOLOG) 1 VIAL SQ SCH ×4 (06:36→21:30)
[2017-10-19] MEDS: FUROSEMIDE 40 MG TABLET (FP) PO SCH ×2 (06:38→14:20)
[2017-10-19] MEDS: CALCITRIOL 0.25 MCG CAPSULE (FP) PO SCH ×3 (06:38→21:25)
[2017-10-19] MEDS: MISOPROSTOL 200 MCG TABLET PO SCH ×3 (06:38→21:28)
[2017-10-19] MEDS: SODIUM BICARBONATE 650 MG TABLET PO SCH ×3 (06:38→21:25)
--- NOTE | 2017-10-19 08:36 | PN ---
Teaching Attending Note Name of Resident: Ayan Hodge ATTENDING PHYSICIAN STATEMENT I saw and evaluated the patient. I reviewed the resident's note and discussed the case with the resident. I agree with the resident's findings and plan as documented. SUBJECTIVE: Patient is comfortable, no fever or chills . lying in bed comfortably. OBJECTIVE: Vital Signs Temperature 98 F 10/19/17 06:00 Pulse Rate 67 10/19/17 06:00 Respiratory Rate 20 10/19/17 06:00 Blood Pressure 135/77 10/19/17 06:00 O2 Sat by Pulse Oximetry (%) 96 10/19/17 02:30 CBCD WBC 6.3 K/mm3 (4.0-10.0) 10/18/17 21:00 RBC 3.68 M/mm3 (4.00-5.60) L 10/18/17 21:00 Hgb 10.0 GM/dL (11.7-16.9) L 10/18/17 21:00 Hct 31.2 % (35.4-49) L 10/18/17 21:00 MCV 84.8 fl (80-96) 10/18/17 21:00 MCHC 32.1 g/dl (32.0-35.9) 10/18/17 21:00 RDW 17.5 % (11.9-15.9) H 10/18/17 21:00 Plt Count 280 K/MM3 (134-434) 10/18/17 21:00 MPV 9.5 fl (7.5-11.1) 10/18/17 21:00 CMP Sodium 143 mmol/L (136-145) 10/18/17 23:26 Potassium 3.4 mmol/L (3.5-5.1) L 10/18/17 23:26 Chloride 113 mmol/L (98-107) H 10/18/17 23:26 Carbon Dioxide 19 mmol/L (21-32) L 10/18/17 23:26 Anion Gap 11 (8-16) 10/18/17 23:26 BUN 53 mg/dL (7-18) H 10/18/17 23:26 Creatinine 1.8 mg/dL (0.7-1.3) H 10/18/17 23:26 Creat Clearance w eGFR 37.17 (>60) 10/18/17 23:26 Random Glucose 124 mg/dL (74-106) H 10/18/17 23:26 Calcium 7.1 mg/dL (8.5-10.1) L 10/18/17 23:26 Total Bilirubin 0.2 mg/dL (0.2-1.0) 10/18/17 23:26 AST 14 U/L (15-37) L 10/18/17 23:26 ALT 14 U/L (12-78) 10/18/17 23:26 Alkaline Phosphatase 83 U/L (45-117) 10/18/17 23:26 Total Protein 5.9 g/dl (6.4-8.2) L 10/18/17 23:26 Albumin 2.6 g/dl (3.4-5.0) L 10/18/17 23:26 Current Medications Generic Name Dose Route Start Last Admin Trade Name Freq PRN Reason Stop Dose Admin Allopurinol 100 mg 10/19/17 10:00 Zyloprim - PO DAILY [facility] Atorvastatin Calcium 40 mg 10/19/17 22:00 Lipitor - PO HS [facility] Calcitriol 0.25 mcg 10/19/17 06:00 10/19/17 06:38 Rocaltrol - PO 0.25 mcg TID E[facility]AN[facility] Administration Carvedilol 12.5 mg 10/19/17 10:00 Coreg - PO BID E[facility] Docusate Sodium 50 mg 10/19/17 10:00 Colace Liquid - PO BID [facility] Febuxostat 40 mg 10/19/17 10:00 Uloric - PO DAILY [facility] Finasteride 20 mg 10/19/17 10:00 Proscar - PO DAILY E[facility] Folic Acid 1 mg 10/19/17 10:00 Folic Acid - PO DAILY E[facility] Furosemide 40 mg 10/19/17 06:00 10/19/17 06:38 Lasix - PO 40 mg BIDLASIX E[facility]AN[facility] Administration Insulin Aspart 1 vial 10/19/17 07:00 10/19/17 06:36 Novolog Vial Sliding Scale - SQ 4 unit ACHS ELEANOR Administration Protocol Losartan Potassium 50 mg 10/19/17 10:00 Cozaar - PO DAILY [facility] Magnesium Hydroxide 30 ml 10/19/17 10:00 Milk Of Magnesia - PO Q6H PRN INDIGESTION Misoprostol 200 mcg 10/19/17 06:00 10/19/17 06:38 Cytotec - PO 200 mcg TID [facility] Administration Nitrofurantoin Macrocrystals 50 mg 10/19/17 06:00 10/19/17 06:38 Macrodantin - PO 50 mg Q6HPO [facility] Administration Pantoprazole Sodium 40 mg 10/19/17 10:00 Protonix - PO BID [facility] Polyethylene Glycol 17 gm 10/19/17 10:00 Miralax (For Daily Use) - PO DAILY [facility] Potassium Chloride 20 meq 10/19/17 10:00 K-Dur - PO DAILY [facility] Rivaroxaban 15 mg 10/19/17 18:00 Xarelto - PO DAILY@1800 [facility] Senna 1 tab 10/19/17 02:24 Senna - PO DAILY PRN CONSTIPATION Sodium Bicarbonate 650 mg 10/19/17 06:00 10/19/17 06:38 Sodium Bicarbonate - PO 650 mg TID [facility] Administration Tamsulosin HCl 0.4 mg 10/19/17 08:30 Flomax - PO BID@0830,2200 [facility] Home Medications Medication Instructions Recorded Cod Liver Oil 1 each PO ASDIR 11/08/14 Docusate Sodium [Dulcolax Stool 50 mg PO BID 11/08/14 Softener] Finasteride [Proscar -] 40 mg PO BID 11/08/14 Folic Acid - 1 mg PO DAILY 11/08/14 Calcitriol [Rocaltrol -] 0.25 mcg PO TID 09/30/17 Diclofenac Sodium [Solaraze] 100 gm TP DAILY 09/30/17 Magnesium Hydroxide [Milk of 400 mg PO QID 09/30/17 Magnesia] Misoprostol 200 mcg PO TID 09/30/17 Nitrofurantoin Macrocrystal 100 mg PO BID 09/30/17 [Macrodantin] Pantoprazole Sodium [Protonix] 40 mg PO BID 09/30/17 Potassium Chloride [Klor-Con 10] 20 meq PO DAILY 09/30/17 Sennosides [Senna] 8.6 mg PO ONCE 09/30/17 Sodium Bicarbonate 650 mg PO TID 09/30/17 PE: CVS: S1S2 positive, irregular : Barnett Catheter rest of PE per resident's note ASSESSMENT AND PLAN: Patient is a 70 M with pmhx. of HTN, HLD, DM, GERD, AFib on Xarelto, CAD, BPH, Neurogenic bladder, GI bleed, Chronic UTIs who presents to ED with complaint of urinary retention for approximately 1 day, being admitted for ESBL E-coli UTI and KIRIT, # Acute UTI with prior cx ( ESBL E-Coli) ; On Meropenem 1g Q 12h; ID consult # KIRIT over CKD, nephro consulted for further w/u , Renal US ordered # Afib: Rate Controlled, Xarelto Renally dosed # DM: Sliding scale with coverage # GERD:on Protonix continue Dvt PPx: On Xarelto
[2017-10-19] MEDS ORDERED: SENNOSIDES 8.6MG TABLET (FP) PO SCH (10:00)
[2017-10-19] MEDS ORDERED: MAGNESIUM HYDROX 2400MG/30ML ORAL SUSPENSION 30 ML CUP PO PRN (10:00)
[2017-10-19] MEDS ORDERED: FINASTERIDE 5 MG TABLET (FP) PO SCH (10:00)
[2017-10-19] MEDS ORDERED: DICLOFENAC SODIUM 100 GM TP SCH (10:00)
[2017-10-19] MEDS ORDERED: PT OWN MED DRAWER 7, Y5N ONE ×4 (10:21→20:43)
[2017-10-19] MEDS: LOSARTAN POTASSIUM 50 MG TABLET (FP) PO SCH (10:33)
[2017-10-19] MEDS: CARVEDILOL 12.5 MG TABLET (FP) PO SCH ×2 (10:33→21:25)
[2017-10-19] MEDS: DOCUSATE NA 100 MG/10 ML UNIT-DOSE CUPS PO SCH ×2 (10:33→21:25)
[2017-10-19] MEDS: TAMSULOSIN HCL 0.4 MG CAP.ER.24H (FP) PO SCH ×2 (10:33→21:26)
[2017-10-19] MEDS: FEBUXOSTAT 40 MG TAB PO SCH (10:34)
[2017-10-19] MEDS: FINASTERIDE 5 MG TABLET (FP) PO SCH (10:34)
[2017-10-19] MEDS: FOLIC ACID 1 MG TABLET (FP) PO SCH (10:34)
[2017-10-19] MEDS: POLYETHYLENE GLYCOL 3350 119 GM BTL PO SCH ×2 (10:34→17:32)
[2017-10-19] MEDS: ALLOPURINOL 100 MG TABLET (FP) PO SCH (10:34)
[2017-10-19] MEDS: POTASSIUM CHLORIDE TABS 20 MEQ TABLET.ER (FP) PO SCH (10:34)
[2017-10-19] MEDS: PANTOPRAZOLE 40 MG TABLET (FP) PO SCH ×2 (10:35→21:26)
--- NOTE | 2017-10-19 11:47 | CONSULT ---
Consult Consult Specialty:: Nephrology Reason for Consultation:: KIRIT - History of Present Illness Chief Complaint: dysuria History of Present Illness: Pt is a 72 year old male with pmhx of HTN, chol, DM, a-fib, GERD, BPH, CAD, neurogenic bladder and recurrent UTI who presents to the ER with dysuria. He says he stopped urinating about one day prior to admission. He has had this happen several times in the past and his symptoms would improve after he starts abx. He denies fevers or chills. He denies shortness of breath or lower extremity edema. He denies nsaid use. He says he has an appointment to see me next week. He was recently in [facility] when he says he walked out. He does not remember the abx he was treated with in the past. - History Source History Provided By: Patient, Medical Record - Past Medical History Cardio/Vascular: Yes: HTN, Hyperlipdemia Gastrointestinal: Yes: GERD Renal/: Yes: Renal Inusuff, Neurogenic Bladder Infectious Disease: Yes: Other (uti) Endocrine: Yes: Diabetes Mellitus - Alcohol/Substance Use Hx Alcohol Use: No - Smoking History Smoking history: Unknown if ever smoked Have you smoked in the past 12 months: No Home Medications - Allergies Allergies/Adverse Reactions: Allergies Allergy/AdvReac Type Severity Reaction Status Date / Time ibuprofen [From Motrin] Allergy Intermediate "STOMACH Verified 10/18/17 20:05 BURST" REQUIRING SX & BLOOD TRANSFUSION. - Home Medications Home Medications: Ambulatory Orders Cod Liver Oil 1 each PO ASDIR 11/08/14 Docusate Sodium [Dulcolax Stool Softener] 50 mg PO BID 11/08/14 Finasteride [Proscar -] 40 mg PO BID 11/08/14 Folic Acid - 1 mg PO DAILY 11/08/14 Calcitriol [Rocaltrol -] 0.25 mcg PO TID 09/30/17 Diclofenac Sodium [Solaraze] 100 gm TP DAILY 09/30/17 Magnesium Hydroxide [Milk of Magnesia] 400 mg PO QID 09/30/17 Misoprostol 200 mcg PO TID 09/30/17 Nitrofurantoin Macrocrystal [Macrodantin] 100 mg PO BID 09/30/17 Pantoprazole Sodium [Protonix] 40 mg PO BID 09/30/17 Potassium Chloride [Klor-Con 10] 20 meq PO DAILY 09/30/17 Sennosides [Senna] 8.6 mg PO ONCE 09/30/17 Sodium Bicarbonate 650 mg PO TID 09/30/17 Family Disease History - Family Disease History Family History: Denies Review of Systems - Review of Systems Constitutional: denies: Chills, Fever Eyes: reports: No Symptoms HENT: reports: No Symptoms Neck: reports: No Symptoms Cardiovascular: reports: No Symptoms Respiratory: reports: No Symptoms Gastrointestinal: reports: No Symptoms Genitourinary: reports: Dysuria Musculoskeletal: reports: No Symptoms Integumentary: reports: No Symptoms Neurological: reports: No Symptoms Endocrine: reports: No Symptoms Hematology/Lymphatic: reports: No Symptoms Physical Exam Vital Signs: Vital Signs Temperature 98 F 10/19/17 06:00 Pulse Rate 67 10/19/17 06:00 Respiratory Rate 20 10/19/17 06:00 Blood Pressure 135/77 10/19/17 06:00 O2 Sat by Pulse Oximetry (%) 96 10/19/17 02:30 Constitutional: Yes: Calm Eyes: Yes: Conjunctiva Clear HENT: Yes: Atraumatic Neck: Yes: Supple Cardiovascular: Yes: S1, S2 Respiratory: Yes: CTA Bilaterally Gastrointestinal: Yes: Soft Renal/: Yes: Barnett Present Musculoskeletal: Yes: WNL Edema: No Neurological: Yes: Oriented Psychiatric: Yes: Oriented Labs: CBC, BMP 10/18/17 21:00 10/18/17 23:26 Laboratory Tests 10/18/17 10/18/17 10/18/17 21:00 21:00 23:26 WBC 6.3 Hgb 10.0 L Plt Count 280 Sodium 143 Potassium 3.4 L Chloride 113 H Carbon Dioxide 19 L Anion Gap 11 BUN 53 H Creatinine 1.8 H Random Glucose 124 H Calcium 7.1 L AST 14 L ALT 14 Albumin 2.6 L Urine Protein 2+ H Urine Blood 1+ H Ur Leukocyte Esterase 3+ H Urine WBC (Auto) 1048 Urine Bacteria Rare Assessment/Plan Current Medications Generic Name Dose Route Start Last Admin Trade Name Freq PRN Reason Stop Dose Admin Allopurinol 100 mg 10/19/17 10:00 10/19/17 10:34 Zyloprim - PO 100 mg DAILY [facility] Administration Atorvastatin Calcium 40 mg 10/19/17 22:00 Lipitor - PO HS [facility] Calcitriol 0.25 mcg 10/19/17 06:00 10/19/17 06:38 Rocaltrol - PO 0.25 mcg TID [facility] Administration Carvedilol 12.5 mg 10/19/17 10:00 10/19/17 10:33 Coreg - PO 12.5 mg BID [facility] Administration Docusate Sodium 50 mg 10/19/17 10:00 10/19/17 10:33 Colace Liquid - PO 50 mg BID [facility] Administration Febuxostat 40 mg 10/19/17 10:00 10/19/17 10:34 Uloric - PO 40 mg DAILY [facility] Administration Finasteride 20 mg 10/19/17 10:00 10/19/17 10:34 Proscar - PO 20 mg DAILY [facility] Administration Folic Acid 1 mg 10/19/17 10:00 10/19/17 10:34 Folic Acid - PO 1 mg DAILY [facility] Administration Furosemide 40 mg 10/19/17 06:00 10/19/17 06:38 Lasix - PO 40 mg BIDLASIX [facility] Administration Insulin Aspart 1 vial 10/19/17 07:00 10/19/17 11:57 Novolog Vial Sliding Scale - SQ Not Given ACHS [facility] Protocol Losartan Potassium 50 mg 10/19/17 10:00 10/19/17 10:33 Cozaar - PO 50 mg DAILY [facility] Administration Misoprostol 200 mcg 10/19/17 06:00 10/19/17 06:38 Cytotec - PO 200 mcg TID [facility] Administration Pantoprazole Sodium 40 mg 10/19/17 10:00 10/19/17 10:35 Protonix - PO 40 mg BID [facility] Administration Polyethylene Glycol 17 gm 10/19/17 10:00 10/19/17 10:34 Miralax (For Daily Use) - PO Not Given DAILY [facility] Potassium Chloride 20 meq 10/19/17 10:00 10/19/17 10:34 K-Dur - PO 20 meq DAILY [facility] Administration Rivaroxaban 15 mg 10/19/17 18:00 Xarelto - PO DAILY@1800 [facility] Senna 1 tab 10/19/17 02:24 Senna - PO DAILY PRN CONSTIPATION Sodium Bicarbonate 650 mg 10/19/17 06:00 10/19/17 06:38 Sodium Bicarbonate - PO 650 mg TID [facility] Administration Tamsulosin HCl 0.4 mg 10/19/17 08:30 10/19/17 10:33 Flomax - PO 0.4 mg BID@0830,2200 [facility] Administration Impression 1. KIRIT with unclear baseline 2. urinary obstruction 3. DM 4. HTN 5. a-fib 6. gout 7. constipation 8. hyperlipidemia 9. BPH 10. UTI Plan - recommend stopping nsaids - repeat labs in am - check renal ultrasound - follow urine cultures - urology eval - unclear what baseline furnace firer is - will follow Dr Ledbetter
--- NOTE | 2017-10-19 15:26 | CON.ID ---
Consult Consult Specialty:: infectious diseases Reason for Consultation:: complicated uti - History of Present Illness History of Present Illness: 72 year old male with pmhx of HTN, chol, DM, a-fib, GERD, BPH, CAD, neurogenic bladder and recurrent UTI admitted with dysuria. patient came to the er and there a foleys was placed. patient mentions that he had a foleys catheter snf which was removed couple of days back and patient could not pass urine and came to the hospital He says he stopped urinating about one day prior to admission. He has had this happen several times in the past and his symptoms would improve after he starts abx. He denies fevers or chills. patient has been treated wiht multiple abx previously--he cannot recolelct the names of them but he does have history of esbl uti - History Source History Provided By: Patient Limitations to Obtaining History: No Limitations - Past Medical History Cardio/Vascular: Yes: HTN, Hyperlipdemia Gastrointestinal: Yes: GERD Renal/: Yes: Renal Inusuff, Neurogenic Bladder Infectious Disease: Yes: Other (uti) Endocrine: Yes: Diabetes Mellitus - Alcohol/Substance Use Hx Alcohol Use: No - Smoking History Smoking history: Unknown if ever smoked Have you smoked in the past 12 months: No Home Medications - Allergies Allergies/Adverse Reactions: Allergies Allergy/AdvReac Type Severity Reaction Status Date / Time ibuprofen [From Motrin] Allergy Intermediate "STOMACH Verified 10/18/17 20:05 BURST" REQUIRING SX & BLOOD TRANSFUSION. - Home Medications Home Medications: Ambulatory Orders Cod Liver Oil 1 each PO ASDIR 11/08/14 Docusate Sodium [Dulcolax Stool Softener] 50 mg PO BID 11/08/14 Finasteride [Proscar -] 40 mg PO BID 11/08/14 Folic Acid - 1 mg PO DAILY 11/08/14 Calcitriol [Rocaltrol -] 0.25 mcg PO TID 09/30/17 Diclofenac Sodium [Solaraze] 100 gm TP DAILY 09/30/17 Magnesium Hydroxide [Milk of Magnesia] 400 mg PO QID 09/30/17 Misoprostol 200 mcg PO TID 09/30/17 Nitrofurantoin Macrocrystal [Macrodantin] 100 mg PO BID 09/30/17 Pantoprazole Sodium [Protonix] 40 mg PO BID 09/30/17 Potassium Chloride [Klor-Con 10] 20 meq PO DAILY 09/30/17 Sennosides [Senna] 8.6 mg PO ONCE 09/30/17 Sodium Bicarbonate 650 mg PO TID 09/30/17 Atorvastatin Calcium 40 mg PO DAILY 10/19/17 Carvedilol [Coreg] 12.5 mg PO DAILY 10/19/17 Colchicine 0.6 mg PO DAILY 10/19/17 Esomeprazole Magnesium 1 each PO BID 10/19/17 Furosemide [Lasix] 40 mg PO BID 10/19/17 Losartan Potassium 50 mg PO DAILY 10/19/17 Pantoprazole Sodium [Protonix] 40 mg PO BID 10/19/17 Potassium Chloride [Klor-Con M20] 20 meq PO DAILY 10/19/17 Repaglinide [Prandin] 2 mg PO TID 10/19/17 Rivaroxaban [Xarelto -] 15 mg PO DAILY 10/19/17 Tamsulosin HCl [Flomax] 0.4 mg PO BID 10/19/17 Warfarin Na [Coumadin] 1 mg PO DAILY 10/19/17 Review of Systems - Review of Systems Constitutional: reports: No Symptoms Eyes: reports: No Symptoms HENT: reports: No Symptoms Neck: reports: No Symptoms Cardiovascular: reports: No Symptoms Respiratory: reports: No Symptoms Gastrointestinal: reports: No Symptoms Genitourinary: reports: Incontinence, Other Musculoskeletal: reports: No Symptoms Integumentary: reports: No Symptoms Neurological: reports: No Symptoms Endocrine: reports: No Symptoms Hematology/Lymphatic: reports: No Symptoms Psychiatric: reports: No Symptoms Physical Exam Vital Signs: Vital Signs Temperature 97.9 F 10/19/17 14:00 Pulse Rate 92 H 10/19/17 14:00 Respiratory Rate 20 10/19/17 14:00 Blood Pressure 148/77 10/19/17 14:00 O2 Sat by Pulse Oximetry (%) 96 10/19/17 09:00 Constitutional: Yes: No Distress, Calm Cardiovascular: Yes: S1, S2 Respiratory: Yes: Regular, CTA Bilaterally Gastrointestinal: Yes: Normal Bowel Sounds, Soft Renal/: Yes: Barnett Present Musculoskeletal: Yes: WNL Extremities: Yes: WNL Neurological: Yes: Alert, Oriented Psychiatric: Yes: Alert, Oriented Labs: CBC, BMP 10/18/17 21:00 10/18/17 23:26 Assessment/Plan juan carlos dm uti afib bph hld urinary obstruction plan in view of his previous history we will start patient on ertapenam await for cx report urology on case rest as per primary team
[2017-10-19] MEDS: ERTAPENEM SODIUM 1 GM in SODIUM CHLORIDE 100 ML IVPB SCH (17:30)
[2017-10-19] MEDS: RIVAROXABAN 15 MG TABLET PO SCH ×2 (17:31→17:44)
[2017-10-19] MEDS ORDERED: INSULIN (NOVOLOG) ASPART 100 UNITS/ML 10ML VIAL ONE (18:27)
--- NOTE | 2017-10-19 19:37 | PN ---
<Ayan Hodge - Last Filed: 10/20/17 10:05> Physical Exam: SUBJECTIVE: Patient seen and examined at bedside. he presented to hospital because he could not pass urine, he denies any chest pain, abdominal pain , N/V/ D/C. deneis any chest pain , sob OBJECTIVE: Vital Signs Period Temp Pulse Resp BP Sys/Stewart Pulse Ox Last 24 Hr 97.1 F-98.2 F 55-92 18-20 127-168/71-97 96-100 GENERAL: Awake, alert, and fully oriented, in no acute distress. HEAD: Normal with no signs of trauma. ENT:Moist mucous membranes. NECK: Normal range of motion, supple . LUNGS: Breath sounds equal, clear to auscultation bilaterally. No wheezes, and no crackles. No accessory muscle use. HEART: irreregular s1s2 normal ABDOMEN: Soft, nontender, not distended, normoactive bowel sounds, no guarding, no rebound, no masses. midline scar present, incision hernia. UPPER EXTREMITIES: 2+ pulses, warm, well-perfused. LOWER EXTREMITIES: warm, No calf tenderness. No peripheral edema. PSYCHIATRIC: Cooperative. SKIN: Warm, dry, Laboratory Results - last 24 hr 10/18/17 10/18/17 10/18/17 21:00 21:00 21:00 WBC 6.3 RBC 3.68 L Hgb 10.0 L Hct 31.2 L MCV 84.8 MCH 27.2 MCHC 32.1 RDW 17.5 H Plt Count 280 MPV 9.5 Neutrophils % 71.2 Lymphocytes % 12.4 Monocytes % 13.2 H Eosinophils % 1.8 Basophils % 1.4 Sodium Cancelled Potassium Cancelled Chloride Cancelled Carbon Dioxide Cancelled Anion Gap Cancelled BUN Cancelled Creatinine Cancelled Creat Clearance w eGFR Cancelled POC Glucometer Random Glucose Cancelled Calcium Cancelled Total Bilirubin Cancelled AST Cancelled ALT Cancelled Alkaline Phosphatase Cancelled Total Protein Cancelled Albumin Cancelled Urine Color Ltyellow Urine Appearance Cloudy Urine pH 5.0 Ur Specific Bryant 1.010 Urine Protein 2+ H Urine Glucose (UA) Negative Urine Ketones Negative Urine Blood 1+ H Urine Nitrite Negative Urine Bilirubin Negative Urine Urobilinogen Negative Ur Leukocyte Esterase 3+ H Urine WBC (Auto) 1048 Urine RBC (Auto) 38 Ur Epithelial Cells Rare Urine Bacteria Rare Hyaline Casts 4 Urine Mucus Rare 10/18/17 10/19/17 10/19/17 23:26 11:56 17:29 WBC RBC Hgb Hct MCV MCH MCHC RDW Plt Count MPV Neutrophils % Lymphocytes % Monocytes % Eosinophils % Basophils % Sodium 143 Potassium 3.4 L Chloride 113 H Carbon Dioxide 19 L Anion Gap 11 BUN 53 H Creatinine 1.8 H Creat Clearance w eGFR 37.17 POC Glucometer 136 140 Random Glucose 124 H Calcium 7.1 L Total Bilirubin 0.2 AST 14 L ALT 14 Alkaline Phosphatase 83 Total Protein 5.9 L Albumin 2.6 L Urine Color Urine Appearance Urine pH Ur Specific Bryant Urine Protein Urine Glucose (UA) Urine Ketones Urine Blood Urine Nitrite Urine Bilirubin Urine Urobilinogen Ur Leukocyte Esterase Urine WBC (Auto) Urine RBC (Auto) Ur Epithelial Cells Urine Bacteria Hyaline Casts Urine Mucus Active Medications Generic Name Dose Route Start Last Admin Trade Name Freq PRN Reason Stop Dose Admin Allopurinol 100 mg 10/19/17 10:00 10/19/17 10:34 Zyloprim - PO 100 mg DAILY ELEANOR Administration Atorvastatin Calcium 40 mg 10/19/17 22:00 Lipitor - PO HS ELEANOR Calcitriol 0.25 mcg 10/19/17 06:00 10/19/17 14:20 Rocaltrol - PO 0.25 mcg TID ELEANOR Administration Carvedilol 12.5 mg 10/19/17 10:00 10/19/17 10:33 Coreg - PO 12.5 mg BID ELEANOR Administration Docusate Sodium 50 mg 10/19/17 10:00 10/19/17 10:33 Colace Liquid - PO 50 mg BID ELEANOR Administration Febuxostat 40 mg 10/19/17 10:00 10/19/17 10:34 Uloric - PO 40 mg DAILY ELEANOR Administration Finasteride 20 mg 10/19/17 10:00 10/19/17 10:34 Proscar - PO 20 mg DAILY ELEANOR Administration Folic Acid 1 mg 10/19/17 10:00 10/19/17 10:34 Folic Acid - PO 1 mg DAILY ELEANOR Administration Furosemide 40 mg 10/19/17 06:00 10/19/17 14:20 Lasix - PO 40 mg BIDLASIX ELEANOR Administration Ertapenem 1 gm/ Sodium 100 mls @ 200 mls/hr 10/19/17 15:30 10/19/17 17:30 Chloride IVPB 200 mls/hr DAILY ELEANOR Administration Protocol Insulin Aspart 1 vial 10/19/17 07:00 10/19/17 17:29 Novolog Vial Sliding Scale - SQ Not Given ACHS ELEANOR Protocol Losartan Potassium 50 mg 10/19/17 10:00 10/19/17 10:33 Cozaar - PO 50 mg DAILY ELEANOR Administration Misoprostol 200 mcg 10/19/17 06:00 10/19/17 14:20 Cytotec - PO 200 mcg TID ELEANOR Administration Pantoprazole Sodium 40 mg 10/19/17 10:00 10/19/17 10:35 Protonix - PO 40 mg BID ELEANOR Administration Polyethylene Glycol 17 gm 10/19/17 10:00 10/19/17 17:32 Miralax (For Daily Use) - PO 17 gm DAILY ELEANOR Administration Potassium Chloride 20 meq 10/19/17 10:00 10/19/17 10:34 K-Dur - PO 20 meq DAILY ELEANOR Administration Rivaroxaban 15 mg 10/19/17 18:00 10/19/17 17:44 Xarelto - PO Not Given DAILY@1800 ELEANOR Senna 1 tab 10/19/17 02:24 Senna - PO DAILY PRN CONSTIPATION Sodium Bicarbonate 650 mg 10/19/17 06:00 10/19/17 14:20 Sodium Bicarbonate - PO 650 mg TID ELEANOR Administration Tamsulosin HCl 0.4 mg 10/19/17 08:30 10/19/17 10:33 Flomax - PO 0.4 mg BID@0830,2200 ELEANOR Administration CBC, BMP 10/18/17 21:00 10/18/17 23:26 ASSESSMENT/PLAN: The patient is a 72 year old male with a significant past medical history of hypertension, hyperlipidemia, diabetes, GERD, AFib(on Xarelto), CAD, BPH, neurogenic bladder, GI bleed, chronic UTIs. Came to hospital for urinary retention and found to have uti with esbl. medicine list confirmed with patient. #Urinary retention with UTI correa placed in er urine culture: esbl continue with meropenem ID consult: dr haines urology consult for chronic urinary retention monitor intake and output monitor vitals. 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 ( h/o hematuria) monitor haemoglobin. #DM blood glucose monitoring sliding scale GERD continue with protonix home med #hypokalemia monitor on kdur #pseudohypocalcemia corrected 8.5 fluid: orally allowed electrolyte: repeat in am nutrition; diabetic diet #dvt pro: on xarelto gi pro; on protonix #dispo: tele Visit type - Emergency Visit Emergency Visit: Yes ED Registration Date: 10/19/17 Care time: The patient presented to the Emergency Department on the above date and was hospitalized for further evaluation of their emergent condition. - New Patient This patient is new to me today: Yes Date on this admission: 10/20/17 - Critical Care Critical Care patient: No - Discharge Referral Referred to [facility] Med [facility].C[facility] No <Malena Wilkerson - Last Filed: 10/24/17 19:16> Physical Exam: Patient is on Eliquis not Xarelto
[2017-10-19] MEDS: ATORVASTATIN CA 40 MG TABLET (FP) PO SCH (21:26)
--- NOTE | 2017-10-19 23:40 | CONS ---
DATE OF CONSULTATION: DATE OF DICTATION: 10/19/2017 HISTORY OF PRESENT ILLNESS: The patient is a 72-year-old male admitted via the emergency room with acute urinary retention. Patient also has history of high blood pressure, dyslipidemia, diabetes, GERD, atrial fibrillation, coronary artery disease, benign prostatic hypertrophy, neurogenic bladder, history of GI bleeds and chronic recurrent urinary tract infections. Patient states he recently had a Barnett catheter removed which had been in place for the patient 1-1/2 years secondary to urinary retention. The patient states the catheter was placed in 2014. The patient underwent prostate surgery August of [address] [facility] by [address] Dr. Patterson and later that week was admitted to [facility] with post TURP bleeding, was in the hospital treated with antibiotics. A Barnett catheter was placed, and the patient was discharged. He states that his private medical doctor removed the Barnett catheter 2 days ago and presently he is unable to urinate. He does have some dribbling with dysuria, frequency, and hesitancy. He is allergic to IBUPROFEN. He has undergone placement of a defibrillator after coronary bypass surgery. Patient also had an inguinal hernia repair and laparoscopic repair of intestinal perforations. He denies any ethanol or tobacco use. Patient's medications included Proscar, folic acid, diclofenac sodium, Milk of Magnesia, Macrodantin, Protonix, senna, stool softeners, and sodium bicarbonate. In the emergency room, his blood pressure was , O2 saturation is 100. The patient appeared to be awake, alert, and oriented in no apparent distress. His white count was 6.3, hemoglobin and hematocrit is 10/31.2, platelets were 280. Patient's urinalysis revealed a large amount of red blood cells, nitrates were negative, his BUN and creatinine were 53/1.8 respectively. Random glucose was 124. IMPRESSION: At present is a 72-year-old male with urinary retention, found with culture positive urinary tract infection, with extended-spectrum beta-lactamase. A Barnett catheter was placed in the emergency room. The patient will need a genitourinary workup as outpatient to rule out reason for recurrent retention. Will follow with you in the meantime. Tony [id number]
--- NOTE | 2017-10-20 04:57 | PN ---
<Ayan Hodge - Last Filed: 10/20/17 10:05> Physical Exam: SUBJECTIVE: Patient seen and examined at bedside. denies any fever, chills, N/V/ D/C. Barnett in place with clear urine. OBJECTIVE: Vital Signs Period Temp Pulse Resp BP Sys/Stewart Pulse Ox Last 24 Hr 97.9 F-98.1 F 66-92 18-20 127-151/77-93 96-97 GENERAL: Awake, alert, and fully oriented, in no acute distress. HEAD: Normal with no signs of trauma. EARS, NOSE, THROAT: Ears normal, nares patent, oropharynx clear without exudates. Moist mucous membranes. NECK: Normal range of motion, supple without lymphadenopathy, JVD, or masses. LUNGS: Breath sounds equal, clear to auscultation bilaterally. No wheezes, and no crackles. No accessory muscle use. HEART: irreregular s1s2 normal ABDOMEN: Soft, nontender, not distended, normoactive bowel sounds, no guarding, no rebound, no masses. midline scar present, incision hernia. UPPER EXTREMITIES: 2+ pulses, warm, well-perfused. LOWER EXTREMITIES: warm, No calf tenderness. No peripheral edema. PSYCHIATRIC: Cooperative. SKIN: Warm, dry, Laboratory Results - last 24 hr 10/19/17 10/19/17 10/19/17 11:56 17:29 21:29 POC Glucometer 136 140 184 Active Medications Generic Name Dose Route Start Last Admin Trade Name Freq PRN Reason Stop Dose Admin Allopurinol 100 mg 10/19/17 10:10/19/17 10:34 Zyloprim - PO 100 mg DAILY ELEANOR Administration Atorvastatin Calcium 40 mg 10/19/17 22:00 10/19/17 21:26 Lipitor - PO 40 mg HS ELEANOR Administration Calcitriol 0.25 mcg 10/19/17 06:00 10/19/17 21:25 Rocaltrol - PO 0.25 mcg TID ELEANOR Administration Carvedilol 12.5 mg 10/19/17 10:00 10/19/17 21:25 Coreg - PO 12.5 mg BID ELEANOR Administration Docusate Sodium 50 mg 10/19/17 10:00 10/19/17 21:25 Colace Liquid - PO 50 mg BID ELEANOR Administration Febuxostat 40 mg 10/19/17 10:00 10/19/17 10:34 Uloric - PO 40 mg DAILY ELEANOR Administration Finasteride 20 mg 10/19/17 10:00 10/19/17 10:34 Proscar - PO 20 mg DAILY ELEANOR Administration Folic Acid 1 mg 10/19/17 10:00 10/19/17 10:34 Folic Acid - PO 1 mg DAILY ELEANOR Administration Furosemide 40 mg 10/19/17 06:00 10/19/17 14:20 Lasix - PO 40 mg BIDLASIX ELEANOR Administration Ertapenem 1 gm/ Sodium 100 mls @ 200 mls/hr 10/19/17 15:30 10/19/17 17:30 Chloride IVPB 200 mls/hr DAILY ELEANOR Administration Protocol Insulin Aspart 1 vial 10/19/17 07:00 10/19/17 21:30 Novolog Vial Sliding Scale - SQ 2 unit ACHS [facility] Administration Protocol Losartan Potassium 50 mg 10/19/17 10:00 10/19/17 10:33 Cozaar - PO 50 mg DAILY ELEANOR Administration Misoprostol 200 mcg 10/19/17 06:00 10/19/17 21:28 Cytotec - PO 200 mcg TID ELEANOR Administration Pantoprazole Sodium 40 mg 10/19/17 10:00 10/19/17 21:26 Protonix - PO 40 mg BID ELEANOR Administration Polyethylene Glycol 17 gm 10/19/17 10:00 10/19/17 17:32 Miralax (For Daily Use) - PO 17 gm DAILY ELEANOR Administration Potassium Chloride 20 meq 10/19/17 10:00 10/19/17 10:34 K-Dur - PO 20 meq DAILY ELEANOR Administration Rivaroxaban 15 mg 10/19/17 18:00 10/19/17 17:44 Xarelto - PO Not Given DAILY@1800 [facility] Senna 1 tab 10/19/17 02:24 Senna - PO DAILY PRN CONSTIPATION Sodium Bicarbonate 650 mg 10/19/17 06:00 10/19/17 21:25 Sodium Bicarbonate - PO 650 mg TID ELEANOR Administration Tamsulosin HCl 0.4 mg 10/19/17 08:30 10/19/17 21:26 Flomax - PO 0.4 mg BID@0830,2200 ELEANOR Administration ASSESSMENT/PLAN: The patient is a 72 year old male with a significant past medical history of hypertension, hyperlipidemia, diabetes, GERD, AFib(on Xarelto), CAD, BPH, neurogenic bladder, GI bleed, chronic UTIs. Came to hospital for urinary retention and found to have uti with esbl. #Urinary retention with UTI * Barnett placed * urine culture: ESBL * continue with Irtapinem * ID consult: dr Florez * urology consult for chronic urinary retention * monitor intake and output * urine cx pending #BPH * s/p prostate surgery * c/w fiasteride and floma * urology consult * Barnett in place #KIRIT:on CKD likely post renal from BPH * monitor cr * monitor intake/output * urine electrolytes * renal US reviewed * hold nephrotoxic drugs; colchicin #HTN * monitor * cw home meds #HLd * continue with home meds #Afib * rate control * s/p defibrillator * switch xarelto to Eliquis 2.5 BID * monitor for bleeding. ( h/o hematuria) * monitor haemoglobin. #DM * BGM * ISS * Diabetic diet #GERD * continue with protonix home med #hypokalemia * replenished , monitor * # Gout * continue home meds Alupurinol # FEN * fluid: orally allowed * electrolyte:monitor * nutrition; diabetic diet #Proph * dvt pro: eliquis 2.5 BID * GI pro: on protonix 40 mg po daily #dispo * Admit to med-surg <Malena Wilkerson - Last Filed: 10/20/17 18:48> Physical Exam: Patient seen and examined, patient is refusing to take xarelto since he takes 1 /2 of 15mg po split into 2 halves 3.25mg po bid. Switched to Eliqis since refusing to take 15mg that is renally dosed. Visit type - Emergency Visit Emergency Visit: Yes ED Registration Date: 10/19/17 Care time: The patient presented to the Emergency Department on the above date and was hospitalized for further evaluation of their emergent condition. - New Patient This patient is new to me today: No - Critical Care Critical Care patient: No
[2017-10-20] MEDS ORDERED: PT OWN MED DRAWER 7, Y5N ONE ×5 (05:28→13:40)
[2017-10-20] MEDS: MISOPROSTOL 200 MCG TABLET PO SCH ×3 (06:15→21:37)
[2017-10-20] MEDS: CALCITRIOL 0.25 MCG CAPSULE (FP) PO SCH ×3 (06:15→21:37)
[2017-10-20] MEDS: SODIUM BICARBONATE 650 MG TABLET PO SCH ×3 (06:15→21:36)
[2017-10-20] MEDS: FUROSEMIDE 40 MG TABLET (FP) PO SCH ×2 (06:15→14:04)
[2017-10-20] MEDS: INSULIN SLIDING SCALE (NOVOLOG) 1 VIAL SQ SCH ×4 (06:15→21:37)
[2017-10-20 08:11] LABS: ALBUMIN 3.1 g/dl (3.4-5.0); ANION GAP 8 (8-16); BLOOD UREA NITROGEN 56 mg/dL (7-18); CALCIUM 8.3 mg/dL (8.5-10.1); CHLORIDE 107 mmol/L (98-107); CO2 23 mmol/L (21-32); GLUCOSE,RANDOM 152 mg/dL (74-106); MAGNESIUM 1.8 mg/dL (1.8-2.4); PHOSPHOROUS 4.2 mg/dL (2.5-4.9); POTASSIUM 4.2 mmol/L (3.5-5.1); SGOT/AST 10 U/L (15-37); SGPT/ALT 16 U/L (12-78); SODIUM 138 mmol/L (136-145)
[2017-10-20 08:14] LABS: ALK PHOS 104 U/L (45-117); BILIRUBIN,TOTAL 0.5 mg/dL (0.2-1.0); CREATININE 2.3 mg/dL (0.7-1.3); TOT PROT 6.8 g/dl (6.4-8.2)
[2017-10-20 08:23] LABS: BASO % 0.9 % (0-2.0); EOS % 1.5 % (0-4.5); HEMATOCRIT 30.3 % (35.4-49); HEMOGLOBIN 9.4 GM/dL (11.7-16.9); LYMPH % 10.3 % (8-40); MCH 26.2 pg (25.7-33.7); MCHC 31.2 g/dl (32.0-35.9); MEAN CELL VOLUME 83.9 fl (80-96); MEAN PLT VOLUME 9.3 fl (7.5-11.1); MONO % 8.9 % (3.8-10.2); NEUT % 78.4 % (42.8-82.8); PLATELET COUNT 274 K/MM3 (134-434); RBC 3.61 M/mm3 (4.00-5.60); RDW 17.5 % (11.9-15.9); WHITE BLOOD COUNT 8.6 K/mm3 (4.0-10.0)
[2017-10-20] MEDS: ERTAPENEM SODIUM 1 GM in SODIUM CHLORIDE 100 ML IVPB SCH (09:45)
[2017-10-20] MEDS: TAMSULOSIN HCL 0.4 MG CAP.ER.24H (FP) PO SCH ×2 (09:46→21:36)
[2017-10-20] MEDS: FOLIC ACID 1 MG TABLET (FP) PO SCH (09:46)
[2017-10-20] MEDS: POTASSIUM CHLORIDE TABS 20 MEQ TABLET.ER (FP) PO SCH (09:46)
[2017-10-20] MEDS: FINASTERIDE 5 MG TABLET (FP) PO SCH (09:46)
[2017-10-20] MEDS: ALLOPURINOL 100 MG TABLET (FP) PO SCH (09:46)
[2017-10-20] MEDS: LOSARTAN POTASSIUM 50 MG TABLET (FP) PO SCH (09:46)
[2017-10-20] MEDS: PANTOPRAZOLE 40 MG TABLET (FP) PO SCH ×2 (09:46→21:36)
[2017-10-20] MEDS: CARVEDILOL 12.5 MG TABLET (FP) PO SCH ×2 (09:46→21:36)
[2017-10-20] MEDS: FEBUXOSTAT 40 MG TAB PO SCH (09:47)
[2017-10-20] MEDS: POLYETHYLENE GLYCOL 3350 119 GM BTL PO SCH (09:48)
[2017-10-20] MEDS: APIXABAN 2.5 MG TABLET PO SCH ×2 (10:17→21:36)
[2017-10-20] MEDS: DOCUSATE NA 100 MG/10 ML UNIT-DOSE CUPS PO SCH ×2 (12:06→21:37)
[2017-10-20] MEDS ORDERED: INSULIN (NOVOLOG) ASPART 100 UNITS/ML 10ML VIAL ONE ×2 (12:40→20:52)
--- NOTE | 2017-10-20 12:40 | PN ---
Progress Note, Physician History of Present Illness: patient stable no complaints - Current Medication List Current Medications: Active Medications Allopurinol (Zyloprim -) 100 mg PO DAILY [facility] Last Admin: 10/20/17 09:46 Dose: 100 mg Apixaban (Eliquis -) 2.5 mg PO BID [facility] Last Admin: 10/20/17 10:17 Dose: 2.5 mg Atorvastatin Calcium (Lipitor -) 40 mg PO HS [facility] Last Admin: 10/19/17 21:26 Dose: 40 mg Calcitriol (Rocaltrol -) 0.25 mcg PO TID [facility] Last Admin: 10/20/17 06:15 Dose: 0.25 mcg Carvedilol (Coreg -) 12.5 mg PO BID [facility] Last Admin: 10/20/17 09:46 Dose: 12.5 mg Docusate Sodium (Colace Liquid -) 50 mg PO BID [facility] Last Admin: 10/20/17 12:06 Dose: 50 mg Febuxostat (Uloric -) 40 mg PO DAILY [facility] Last Admin: 10/20/17 09:47 Dose: 40 mg Finasteride (Proscar -) 20 mg PO DAILY [facility] Last Admin: 10/20/17 09:46 Dose: 20 mg Folic Acid (Folic Acid -) 1 mg PO DAILY [facility] Last Admin: 10/20/17 09:46 Dose: 1 mg Furosemide (Lasix -) 40 mg PO BIDLASIX [facility] Last Admin: 10/20/17 06:15 Dose: 40 mg Ertapenem 1 gm/ Sodium (Chloride) 100 mls @ 200 mls/hr IVPB DAILY [facility] PRN Reason: Protocol Last Admin: 10/20/17 09:45 Dose: 200 mls/hr Insulin Aspart (Novolog Vial Sliding Scale -) 1 vial SQ ACHS [facility] PRN Reason: Protocol Last Admin: 10/20/17 12:07 Dose: 4 unit Losartan Potassium (Cozaar -) 50 mg PO DAILY [facility] Last Admin: 10/20/17 09:46 Dose: 50 mg Misoprostol (Cytotec -) 200 mcg PO TID [facility] Last Admin: 10/20/17 06:15 Dose: 200 mcg Pantoprazole Sodium (Protonix -) 40 mg PO BID [facility] Last Admin: 10/20/17 09:46 Dose: 40 mg Polyethylene Glycol (Miralax (For Daily Use) -) 17 gm PO DAILY [facility] Last Admin: 10/20/17 09:48 Dose: 17 gm Potassium Chloride (K-Dur -) 20 meq PO DAILY [facility] Last Admin: 10/20/17 09:46 Dose: 20 meq Senna (Senna -) 1 tab PO DAILY PRN PRN Reason: CONSTIPATION Sodium Bicarbonate (Sodium Bicarbonate -) 650 mg PO TID [facility] Last Admin: 10/20/17 06:15 Dose: 650 mg Tamsulosin HCl (Flomax -) 0.4 mg PO BID@0830,2200 [facility] Last Admin: 10/20/17 09:46 Dose: 0.4 mg - Objective Vital Signs: Vital Signs Temperature 97.7 F 10/20/17 06:00 Pulse Rate 66 10/20/17 06:00 Respiratory Rate 20 10/20/17 06:00 Blood Pressure 150/71 10/20/17 06:00 O2 Sat by Pulse Oximetry (%) 97 10/19/17 21:00 Constitutional: Yes: No Distress, Calm Cardiovascular: Yes: S1, S2 Respiratory: Yes: Regular, CTA Bilaterally Gastrointestinal: Yes: Normal Bowel Sounds, Soft Genitourinary: Yes: Barnett Present Musculoskeletal: Yes: WNL Extremities: Yes: WNL Neurological: Yes: Alert, Oriented Psychiatric: Yes: Alert, Oriented Labs: CBC, BMP 10/20/17 06:00 10/20/17 06:00 Assessment/Plan juan carlos dm uti afib bph hld urinary obstruction plan await for identification of the bacteria continue current mgmt rest as per primary team urology
--- NOTE | 2017-10-20 18:06 | PN ---
Progress Note, Physician History of Present Illness: Pt seen and examined at bedside. He is awake and alert. He was going to sign out AMA however he now agrees to stay and wait for the culture results. - Current Medication List Current Medications: Active Medications Allopurinol (Zyloprim -) 100 mg PO DAILY [facility] Last Admin: 10/20/17 09:46 Dose: 100 mg Apixaban (Eliquis -) 2.5 mg PO BID [facility] Last Admin: 10/20/17 10:17 Dose: 2.5 mg Atorvastatin Calcium (Lipitor -) 40 mg PO HS [facility] Last Admin: 10/19/17 21:26 Dose: 40 mg Calcitriol (Rocaltrol -) 0.25 mcg PO TID [facility] Last Admin: 10/20/17 14:04 Dose: 0.25 mcg Carvedilol (Coreg -) 12.5 mg PO BID [facility] Last Admin: 10/20/17 09:46 Dose: 12.5 mg Docusate Sodium (Colace Liquid -) 50 mg PO BID [facility] Last Admin: 10/20/17 12:06 Dose: 50 mg Febuxostat (Uloric -) 40 mg PO DAILY [facility] Last Admin: 10/20/17 09:47 Dose: 40 mg Finasteride (Proscar -) 20 mg PO DAILY [facility] Last Admin: 10/20/17 09:46 Dose: 20 mg Folic Acid (Folic Acid -) 1 mg PO DAILY [facility] Last Admin: 10/20/17 09:46 Dose: 1 mg Furosemide (Lasix -) 40 mg PO BIDLASIX [facility] Last Admin: 10/20/17 14:04 Dose: 40 mg Ertapenem 1 gm/ Sodium (Chloride) 100 mls @ 200 mls/hr IVPB DAILY [facility] PRN Reason: Protocol Last Admin: 10/20/17 09:45 Dose: 200 mls/hr Insulin Aspart (Novolog Vial Sliding Scale -) 1 vial SQ ACHS [facility] PRN Reason: Protocol Last Admin: 10/20/17 17:29 Dose: Not Given Losartan Potassium (Cozaar -) 50 mg PO DAILY [facility] Last Admin: 10/20/17 09:46 Dose: 50 mg Magnesium Hydroxide (Milk Of Magnesia -) 30 ml PO DAILY PRN PRN Reason: CONSTIPATION Misoprostol (Cytotec -) 200 mcg PO TID [facility] Last Admin: 10/20/17 14:04 Dose: 200 mcg Pantoprazole Sodium (Protonix -) 40 mg PO BID [facility] Last Admin: 10/20/17 09:46 Dose: 40 mg Polyethylene Glycol (Miralax (For Daily Use) -) 17 gm PO DAILY [facility] Last Admin: 10/20/17 09:48 Dose: 17 gm Potassium Chloride (K-Dur -) 20 meq PO DAILY [facility] Last Admin: 10/20/17 09:46 Dose: 20 meq Senna (Senna -) 1 tab PO DAILY PRN PRN Reason: CONSTIPATION Sodium Bicarbonate (Sodium Bicarbonate -) 650 mg PO TID [facility] Last Admin: 10/20/17 14:04 Dose: 650 mg Tamsulosin HCl (Flomax -) 0.4 mg PO BID@0830,2200 [facility] Last Admin: 10/20/17 09:46 Dose: 0.4 mg - Objective Vital Signs: Vital Signs Temperature 98.1 F 10/20/17 15:01 Pulse Rate 67 10/20/17 15:01 Respiratory Rate 20 10/20/17 15:01 Blood Pressure 140/64 10/20/17 15:01 O2 Sat by Pulse Oximetry (%) 97 10/20/17 09:00 Constitutional: Yes: Calm Eyes: Yes: Conjunctiva Clear HENT: Yes: Atraumatic Neck: Yes: Supple Cardiovascular: Yes: S1, S2 Respiratory: Yes: CTA Bilaterally Gastrointestinal: Yes: Normal Bowel Sounds, Soft Genitourinary: Yes: Barnett Present Edema: No Neurological: Yes: Oriented Psychiatric: Yes: Oriented Labs: CBC, BMP 10/20/17 06:00 10/20/17 06:00 Problem List - Problems (1) KIRIT (acute kidney injury) Code(s): N17.9 - ACUTE KIDNEY FAILURE, UNSPECIFIED (2) Complicated UTI (urinary tract infection) Code(s): N39.0 - URINARY TRACT INFECTION, SITE NOT SPECIFIED Assessment/Plan Current Medications Generic Name Dose Route Start Last Admin Trade Name Freq PRN Reason Stop Dose Admin Allopurinol 100 mg 10/19/17 10:00 10/20/17 09:46 Zyloprim - PO 100 mg DAILY [facility] Administration Apixaban 2.5 mg 10/20/17 10:00 10/20/17 10:17 Eliquis - PO 2.5 mg BID [facility] Administration Atorvastatin Calcium 40 mg 10/19/17 22:00 10/19/17 21:26 Lipitor - PO 40 mg HS [facility] Administration Calcitriol 0.25 mcg 10/19/17 06:00 10/20/17 14:04 Rocaltrol - PO 0.25 mcg TID [facility] Administration Carvedilol 12.5 mg 10/19/17 10:00 10/20/17 09:46 Coreg - PO 12.5 mg BID [facility] Administration Docusate Sodium 50 mg 10/19/17 10:00 10/20/17 12:06 Colace Liquid - PO 50 mg BID [facility] Administration Febuxostat 40 mg 10/19/17 10:00 10/20/17 09:47 Uloric - PO 40 mg DAILY [facility] Administration Finasteride 20 mg 10/19/17 10:00 10/20/17 09:46 Proscar - PO 20 mg DAILY [facility] Administration Folic Acid 1 mg 10/19/17 10:00 10/20/17 09:46 Folic Acid - PO 1 mg DAILY [facility] Administration Furosemide 40 mg 10/19/17 06:00 10/20/17 14:04 Lasix - PO 40 mg BIDLASIX [facility] Administration Ertapenem 1 gm/ Sodium 100 mls @ 200 mls/hr 10/19/17 15:30 10/20/17 09:45 Chloride IVPB 200 mls/hr DAILY [facility] Administration Protocol Insulin Aspart 1 vial 10/19/17 07:00 10/20/17 17:29 Novolog Vial Sliding Scale - SQ Not Given ACHS [facility] Protocol Losartan Potassium 50 mg 10/19/17 10:00 10/20/17 09:46 Cozaar - PO 50 mg DAILY [facility] Administration Magnesium Hydroxide 30 ml 10/20/17 17:32 Milk Of Magnesia - PO DAILY PRN CONSTIPATION Misoprostol 200 mcg 10/19/17 06:00 10/20/17 14:04 Cytotec - PO 200 mcg TID [facility] Administration Pantoprazole Sodium 40 mg 10/19/17 10:00 10/20/17 09:46 Protonix - PO 40 mg BID [facility] Administration Polyethylene Glycol 17 gm 10/19/17 10:00 10/20/17 09:48 Miralax (For Daily Use) - PO 17 gm DAILY [facility] Administration Potassium Chloride 20 meq 10/19/17 10:00 10/20/17 09:46 K-Dur - PO 20 meq DAILY [facility] Administration Senna 1 tab 10/19/17 02:24 Senna - PO DAILY PRN CONSTIPATION Sodium Bicarbonate 650 mg 10/19/17 06:00 10/20/17 14:04 Sodium Bicarbonate - PO 650 mg TID [facility] Administration Tamsulosin HCl 0.4 mg 10/19/17 08:30 10/20/17 09:46 Flomax - PO 0.4 mg BID@0830,2200 [facility] Administration Impression 1. KIRIT with unclear baseline 2. urinary obstruction 3. DM 4. HTN 5. a-fib 6. gout 7. constipation 8. hyperlipidemia 9. BPH 10. 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
[2017-10-20] MEDS: ATORVASTATIN CA 40 MG TABLET (FP) PO SCH (21:37)
[2017-10-21] MEDS: MAGNESIUM HYDROX 2400MG/30ML ORAL SUSPENSION 30 ML CUP PO PRN (03:19)
[2017-10-21] MEDS: SODIUM BICARBONATE 650 MG TABLET PO SCH ×3 (05:54→22:47)
[2017-10-21] MEDS: CALCITRIOL 0.25 MCG CAPSULE (FP) PO SCH ×4 (05:54→22:00)
[2017-10-21] MEDS: FUROSEMIDE 40 MG TABLET (FP) PO SCH ×2 (05:54→16:03)
[2017-10-21] MEDS: MISOPROSTOL 200 MCG TABLET PO SCH ×3 (05:55→22:46)
[2017-10-21] MEDS: INSULIN SLIDING SCALE (NOVOLOG) 1 VIAL SQ SCH ×4 (06:18→22:44)
[2017-10-21 08:00] LABS: INR 1.45 (0.82-1.09); PROTHROMBIN TIME (PATIENT) 16.4 SEC (9.98-11.88)
[2017-10-21 08:02] LABS: ACTIVATED PTT 31.9 SECONDS (26.9-34.4)
[2017-10-21 08:06] LABS: BASO % 0.7 % (0-2.0); HEMATOCRIT 31.4 % (35.4-49); HEMOGLOBIN 9.8 GM/dL (11.7-16.9); LYMPH % 9.4 % (8-40); MCH 26.2 pg (25.7-33.7); MCHC 31.2 g/dl (32.0-35.9); MEAN CELL VOLUME 84.2 fl (80-96); MEAN PLT VOLUME 9.3 fl (7.5-11.1); NEUT % 78.9 % (42.8-82.8); PLATELET COUNT 296 K/MM3 (134-434); RBC 3.73 M/mm3 (4.00-5.60); RDW 17.8 % (11.9-15.9); WHITE BLOOD COUNT 8.2 K/mm3 (4.0-10.0)
[2017-10-21 08:13] LABS: CHLORIDE 106 mmol/L (98-107); POTASSIUM 4.3 mmol/L (3.5-5.1); SODIUM 138 mmol/L (136-145)
[2017-10-21 08:24] LABS: ALBUMIN 3.1 g/dl (3.4-5.0); ALK PHOS 109 U/L (45-117); ANION GAP 8 (8-16); BILIRUBIN,TOTAL 0.5 mg/dL (0.2-1.0); BLOOD UREA NITROGEN 55 mg/dL (7-18); CALCIUM 8.3 mg/dL (8.5-10.1); CO2 24 mmol/L (21-32); CREATININE 2.3 mg/dL (0.7-1.3); GLUCOSE,RANDOM 168 mg/dL (74-106); PHOSPHOROUS 3.7 mg/dL (2.5-4.9); SGOT/AST 9 U/L (15-37); SGPT/ALT 17 U/L (12-78)
[2017-10-21] MEDS ORDERED: PT OWN MED DRAWER 7, Y5N ONE (09:27)
[2017-10-21] MEDS: FINASTERIDE 5 MG TABLET (FP) PO SCH (09:46)
[2017-10-21] MEDS: ERTAPENEM SODIUM 1 GM in SODIUM CHLORIDE 100 ML IVPB SCH (09:46)
[2017-10-21] MEDS: POTASSIUM CHLORIDE TABS 20 MEQ TABLET.ER (FP) PO SCH (09:47)
[2017-10-21] MEDS: APIXABAN 2.5 MG TABLET PO SCH ×2 (09:47→22:46)
[2017-10-21] MEDS: PANTOPRAZOLE 40 MG TABLET (FP) PO SCH ×2 (09:47→22:47)
[2017-10-21] MEDS: FOLIC ACID 1 MG TABLET (FP) PO SCH (09:47)
[2017-10-21] MEDS: POLYETHYLENE GLYCOL 3350 119 GM BTL PO SCH (09:47)
[2017-10-21] MEDS: LOSARTAN POTASSIUM 50 MG TABLET (FP) PO SCH (09:48)
[2017-10-21] MEDS: COLCHICINE 0.6 MG TABLET (FP) PO SCH (09:48)
[2017-10-21] MEDS: ALLOPURINOL 100 MG TABLET (FP) PO SCH (09:48)
[2017-10-21] MEDS: DOCUSATE NA 100 MG/10 ML UNIT-DOSE CUPS PO SCH ×2 (09:49→22:45)
[2017-10-21] MEDS: TAMSULOSIN HCL 0.4 MG CAP.ER.24H (FP) PO SCH ×2 (09:49→22:47)
[2017-10-21] MEDS: CARVEDILOL 12.5 MG TABLET (FP) PO SCH ×2 (09:49→22:46)
[2017-10-21] MEDS: FEBUXOSTAT 40 MG TAB PO SCH (09:50)
--- NOTE | 2017-10-21 11:53 | PN ---
Progress Note, Physician History of Present Illness: Pt seen and examined. Events noted, chart reviewed. Currently having correa replaced. Denies fever/chills. Has no specific complaints. - Current Medication List Current Medications: Active Medications Allopurinol (Zyloprim -) 100 mg PO DAILY [facility] Last Admin: 10/21/17 09:48 Dose: 100 mg Apixaban (Eliquis -) 2.5 mg PO BID [facility] Last Admin: 10/21/17 09:47 Dose: 2.5 mg Atorvastatin Calcium (Lipitor -) 40 mg PO HS [facility] Last Admin: 10/20/17 21:37 Dose: 40 mg Calcitriol (Rocaltrol -) 0.25 mcg PO TID [facility] Last Admin: 10/21/17 05:54 Dose: 0.25 mcg Carvedilol (Coreg -) 12.5 mg PO BID [facility] Last Admin: 10/21/17 09:49 Dose: 12.5 mg Colchicine (Colcrys -) 0.6 mg PO DAILY [facility] Last Admin: 10/21/17 09:48 Dose: 0.6 mg Docusate Sodium (Colace Liquid -) 50 mg PO BID [facility] Last Admin: 10/21/17 09:49 Dose: Not Given Febuxostat (Uloric -) 40 mg PO DAILY [facility] Last Admin: 10/21/17 09:50 Dose: 40 mg Finasteride (Proscar -) 20 mg PO DAILY [facility] Last Admin: 10/21/17 09:46 Dose: 20 mg Folic Acid (Folic Acid -) 1 mg PO DAILY [facility] Last Admin: 10/21/17 09:47 Dose: 1 mg Furosemide (Lasix -) 40 mg PO BIDLASIX [facility] Last Admin: 10/21/17 05:54 Dose: 40 mg Ertapenem 1 gm/ Sodium (Chloride) 100 mls @ 200 mls/hr IVPB DAILY [facility] PRN Reason: Protocol Last Admin: 10/21/17 09:46 Dose: 200 mls/hr Insulin Aspart (Novolog Vial Sliding Scale -) 1 vial SQ ACHS [facility] PRN Reason: Protocol Last Admin: 10/21/17 11:29 Dose: 6 unit Losartan Potassium (Cozaar -) 50 mg PO DAILY [facility] Last Admin: 10/21/17 09:48 Dose: 50 mg Magnesium Hydroxide (Milk Of Magnesia -) 30 ml PO DAILY PRN PRN Reason: CONSTIPATION Last Admin: 10/21/17 03:19 Dose: 30 ml Misoprostol (Cytotec -) 200 mcg PO TID [facility] Last Admin: 10/21/17 05:55 Dose: 200 mcg Pantoprazole Sodium (Protonix -) 40 mg PO BID [facility] Last Admin: 10/21/17 09:47 Dose: 40 mg Polyethylene Glycol (Miralax (For Daily Use) -) 17 gm PO DAILY [facility] Last Admin: 10/21/17 09:47 Dose: Not Given Potassium Chloride (K-Dur -) 20 meq PO DAILY [facility] Last Admin: 10/21/17 09:47 Dose: 20 meq Senna (Senna -) 1 tab PO DAILY PRN PRN Reason: CONSTIPATION Sodium Bicarbonate (Sodium Bicarbonate -) 650 mg PO TID [facility] Last Admin: 10/21/17 05:54 Dose: 650 mg Tamsulosin HCl (Flomax -) 0.4 mg PO BID@0830,2200 [facility] Last Admin: 10/21/17 09:49 Dose: 0.4 mg - Objective Vital Signs: Vital Signs Temperature 98.2 F 10/21/17 07:07 Pulse Rate 82 10/21/17 07:07 Respiratory Rate 18 10/21/17 10:00 Blood Pressure 151/92 10/21/17 10:00 O2 Sat by Pulse Oximetry (%) 97 10/20/17 21:00 Constitutional: Yes: No Distress Cardiovascular: Yes: Regular Rate and Rhythm Respiratory: Yes: CTA Bilaterally Gastrointestinal: Yes: Normal Bowel Sounds, Soft Genitourinary: Yes: Correa Present Extremities: Yes: WNL Neurological: Yes: Alert, Oriented Labs: CBC, BMP 10/21/17 06:00 10/21/17 06:00 INR, PTT INR 1.45 (0.82-1.09) H 10/21/17 06:00 Microbiology 10/18/17 21:00 Urine - Urine Correa Urine Culture - Final Escherichia Coli Esbl Nail Expert Problem List - Problems (1) KIRIT (acute kidney injury) Code(s): N17.9 - ACUTE KIDNEY FAILURE, UNSPECIFIED (2) Complicated UTI (urinary tract infection) Code(s): N39.0 - URINARY TRACT INFECTION, SITE NOT SPECIFIED (3) Urinary catheter insertion/adjustment/removal Code(s): Z46.6 - ENCOUNTER FOR FITTING AND ADJUSTMENT OF URINARY DEVICE (4) Urinary tract infection associated with catheterization of urinary tract Code(s): T83.511A - I/I REACT D/T INDWELLING URETHRAL CATHETER, INIT; N39.0 - URINARY TRACT INFECTION, SITE NOT SPECIFIED Qualifiers: Indwelling urinary catheter type: indwelling urethral catheter Encounter type: subsequent encounter Qualified Code(s): T83.511D - Infection and inflammatory reaction due to indwelling urethral catheter, subsequent encounter ; N39.0 - Urinary tract infection, site not specified; N39.0 - Urinary tract infection, site not specified Assessment/Plan DM AFibrillation BPH Obstructive uropathy ESBL + E. Coli UTI - continue Ertapenem - monitor renal function - urology following
--- NOTE | 2017-10-21 16:15 | PN ---
Progress Note, Physician History of Present Illness: Pt seen and examined at bedside. He is awake and alert. He denies fevers or chills. - Current Medication List Current Medications: Active Medications Allopurinol (Zyloprim -) 100 mg PO DAILY [facility] Last Admin: 10/21/17 09:48 Dose: 100 mg Apixaban (Eliquis -) 2.5 mg PO BID [facility] Last Admin: 10/21/17 09:47 Dose: 2.5 mg Atorvastatin Calcium (Lipitor -) 40 mg PO HS [facility] Last Admin: 10/20/17 21:37 Dose: 40 mg Calcitriol (Rocaltrol -) 0.25 mcg PO TID [facility] Last Admin: 10/21/17 16:11 Dose: Not Given Carvedilol (Coreg -) 12.5 mg PO BID [facility] Last Admin: 10/21/17 09:49 Dose: 12.5 mg Colchicine (Colcrys -) 0.6 mg PO DAILY [facility] Last Admin: 10/21/17 09:48 Dose: 0.6 mg Docusate Sodium (Colace Liquid -) 50 mg PO BID [facility] Last Admin: 10/21/17 09:49 Dose: Not Given Febuxostat (Uloric -) 40 mg PO DAILY [facility] Last Admin: 10/21/17 09:50 Dose: 40 mg Finasteride (Proscar -) 20 mg PO DAILY [facility] Last Admin: 10/21/17 09:46 Dose: 20 mg Folic Acid (Folic Acid -) 1 mg PO DAILY [facility] Last Admin: 10/21/17 09:47 Dose: 1 mg Furosemide (Lasix -) 40 mg PO BIDLASIX [facility] Last Admin: 10/21/17 16:03 Dose: 40 mg Ertapenem 1 gm/ Sodium (Chloride) 100 mls @ 200 mls/hr IVPB DAILY [facility] PRN Reason: Protocol Last Admin: 10/21/17 09:46 Dose: 200 mls/hr Insulin Aspart (Novolog Vial Sliding Scale -) 1 vial SQ ACHS [facility] PRN Reason: Protocol Last Admin: 10/21/17 11:29 Dose: 6 unit Losartan Potassium (Cozaar -) 50 mg PO DAILY [facility] Last Admin: 10/21/17 09:48 Dose: 50 mg Magnesium Hydroxide (Milk Of Magnesia -) 30 ml PO DAILY PRN PRN Reason: CONSTIPATION Last Admin: 10/21/17 03:19 Dose: 30 ml Misoprostol (Cytotec -) 200 mcg PO TID [facility] Last Admin: 10/21/17 16:04 Dose: 200 mcg Pantoprazole Sodium (Protonix -) 40 mg PO BID [facility] Last Admin: 10/21/17 09:47 Dose: 40 mg Polyethylene Glycol (Miralax (For Daily Use) -) 17 gm PO DAILY [facility] Last Admin: 10/21/17 09:47 Dose: Not Given Potassium Chloride (K-Dur -) 20 meq PO DAILY [facility] Last Admin: 10/21/17 09:47 Dose: 20 meq Senna (Senna -) 1 tab PO DAILY PRN PRN Reason: CONSTIPATION Sodium Bicarbonate (Sodium Bicarbonate -) 650 mg PO TID [facility] Last Admin: 10/21/17 16:03 Dose: 650 mg Tamsulosin HCl (Flomax -) 0.4 mg PO BID@0830,2200 [facility] Last Admin: 10/21/17 09:49 Dose: 0.4 mg - Objective Vital Signs: Vital Signs Temperature 98.1 F 10/21/17 14:00 Pulse Rate 80 10/21/17 14:00 Respiratory Rate 18 10/21/17 14:00 Blood Pressure 148/88 10/21/17 14:00 O2 Sat by Pulse Oximetry (%) 98 10/21/17 09:00 Constitutional: Yes: Calm Eyes: Yes: Conjunctiva Clear HENT: Yes: Atraumatic Neck: Yes: Supple Cardiovascular: Yes: S1, S2 Respiratory: Yes: CTA Bilaterally Gastrointestinal: Yes: Soft Genitourinary: Yes: Barnett Present Musculoskeletal: Yes: WNL Edema: No Neurological: Yes: Oriented Psychiatric: Yes: Oriented Labs: CBC, BMP 10/21/17 06:00 10/21/17 06:00 INR, PTT INR 1.45 (0.82-1.09) H 10/21/17 06:00 Problem List - Problems (1) KIRIT (acute kidney injury) Code(s): N17.9 - ACUTE KIDNEY FAILURE, UNSPECIFIED (2) Complicated UTI (urinary tract infection) Code(s): N39.0 - URINARY TRACT INFECTION, SITE NOT SPECIFIED Assessment/Plan Current Medications Generic Name Dose Route Start Last Admin Trade Name Freq PRN Reason Stop Dose Admin Allopurinol 100 mg 10/19/17 10:00 10/21/17 09:48 Zyloprim - PO 100 mg DAILY [facility] Administration Apixaban 2.5 mg 10/20/17 10:00 10/21/17 09:47 Eliquis - PO 2.5 mg BID [facility] Administration Atorvastatin Calcium 40 mg 10/19/17 22:00 10/20/17 21:37 Lipitor - PO 40 mg HS [facility] Administration Calcitriol 0.25 mcg 10/19/17 06:00 10/21/17 16:11 Rocaltrol - PO Not Given TID [facility] Carvedilol 12.5 mg 10/19/17 10:00 10/21/17 09:49 Coreg - PO 12.5 mg BID [facility] Administration Colchicine 0.6 mg 10/21/17 10:00 10/21/17 09:48 Colcrys - PO 0.6 mg DAILY [facility] Administration Docusate Sodium 50 mg 10/19/17 10:00 10/21/17 09:49 Colace Liquid - PO Not Given BID [facility] Febuxostat 40 mg 10/19/17 10:00 10/21/17 09:50 Uloric - PO 40 mg DAILY [facility] Administration Finasteride 20 mg 10/19/17 10:00 10/21/17 09:46 Proscar - PO 20 mg DAILY [facility] Administration Folic Acid 1 mg 10/19/17 10:00 10/21/17 09:47 Folic Acid - PO 1 mg DAILY [facility] Administration Furosemide 40 mg 10/19/17 06:00 10/21/17 16:03 Lasix - PO 40 mg BIDLASIX [facility] Administration Ertapenem 1 gm/ Sodium 100 mls @ 200 mls/hr 10/19/17 15:30 10/21/17 09:46 Chloride IVPB 200 mls/hr DAILY [facility] Administration Protocol Insulin Aspart 1 vial 10/19/17 07:00 10/21/17 11:29 Novolog Vial Sliding Scale - SQ 6 unit ACHS [facility] Administration Protocol Losartan Potassium 50 mg 10/19/17 10:00 10/21/17 09:48 Cozaar - PO 50 mg DAILY [facility] Administration Magnesium Hydroxide 30 ml 10/20/17 17:32 10/21/17 03:19 Milk Of Magnesia - PO 30 ml DAILY PRN Administration CONSTIPATION Misoprostol 200 mcg 10/19/17 06:00 10/21/17 16:04 Cytotec - PO 200 mcg TID [facility] Administration Pantoprazole Sodium 40 mg 10/19/17 10:00 10/21/17 09:47 Protonix - PO 40 mg BID [facility] Administration Polyethylene Glycol 17 gm 10/19/17 10:00 10/21/17 09:47 Miralax (For Daily Use) - PO Not Given DAILY [facility] Potassium Chloride 20 meq 10/19/17 10:00 10/21/17 09:47 K-Dur - PO 20 meq DAILY [facility] Administration Senna 1 tab 10/19/17 02:24 Senna - PO DAILY PRN CONSTIPATION Sodium Bicarbonate 650 mg 10/19/17 06:00 10/21/17 16:03 Sodium Bicarbonate - PO 650 mg TID [facility] Administration Tamsulosin HCl 0.4 mg 10/19/17 08:30 10/21/17 09:49 Flomax - PO 0.4 mg BID@0830,2200 [facility] Administration Impression 1. KIRIT with unclear baseline 2. urinary obstruction 3. DM 4. HTN 5. a-fib 6. gout 7. constipation 8. hyperlipidemia 9. BPH 10. 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
--- NOTE | 2017-10-21 16:46 | CONS ---
DATE OF CONSULTATION: HISTORY: The patient is a 72-year-old male with a history of recurrent urinary retention and has had long-term Barnett catheter drainage. Barnett catheter was removed 1 day prior to coming to the emergency room. The patient came in acute urinary retention, and a Barnett catheter was placed without difficulty, and 600-700 mL of concentrated urine was drained. The patient does have history of high blood pressure, dyslipidemia, diabetes, GERD, atrial fibrillation, coronary artery disease, benign prostatic hypertrophy, and neurogenic bladder. He has also had recurrent bouts of urinary tract infections. The patient states that the Barnett catheter has been with him since 2014. He underwent prostate surgery in [facility]. He then developed postoperative hematuria and was admitted to [facility] in early September. The catheter was left in place, and the patient was transferred to a [facility]. The patient states he has had multiple episodes of urinary tract infections and multiple bouts of retention requiring a Barnett catheter. He denies any fever, chills, or flank pain. ALLERGIES: IBUPROFEN. PAST MEDICAL HISTORY: He does have history of a coronary defibrillator. PAST SURGICAL HISTORY: He has also undergone coronary artery bypass surgery. Also underwent an exploratory laparotomy for intestinal perforation. He has had inguinal hernia repair. He denies a history of tobacco or alcohol. MEDICATIONS: The patient presently is on multiple medications including Proscar 5 mg and Flomax 0.4 twice daily. His white count was 3.4 on admission, hemoglobin 10, hematocrit 31.2, BUN 56, creatinine 2.3, random glucose 152. Urine culture grew out Escherichia coli ESBL [employer]. PHYSICAL EXAMINATION: Abdomen: Soft. Genitourinary: His prostate is 3+, smooth, and nontender. Extremities: There is no clubbing, cyanosis, or edema. IMPRESSION: At present, micturition disorder with recurrent urinary tract infection. PLAN: The patient will need a cystourethroscopy and a urodynamic evaluation. This will tell us how to proceed with this patient's urologic care. We will follow along with you. VAN MINOR M.D. [id number]
--- NOTE | 2017-10-21 17:27 | PN ---
Physical Exam: SUBJECTIVE: Patient seen and examined Patient is feeling better with no acute distress. No shortness of breath, no nausea or vomiting. Correa was draining as per nurse. OBJECTIVE: Vital Signs Period Temp Pulse Resp BP Sys/Stewart Pulse Ox Last 24 Hr 97.0 F-98.3 F 20-82 18-20 132-151/73-93 97-98 GENERAL: The patient is awake, alert, and fully oriented, in no acute distress. HEAD: Normal with no signs of trauma. EYES: PERRL, extraocular movements intact, sclera anicteric, conjunctiva clear. ENT: Ears normal, oropharynx clear without exudates, moist mucous membranes. NECK: Trachea midline, full range of motion, supple. LUNGS: Breath sounds equal, clear to auscultation bilaterally, no wheezes, no crackles, no HEART: Regular rate and rhythm, S1, S2 without murmur, rub or gallop. ABDOMEN: Soft, nontender, nondistended, normoactive bowel sounds, no guarding, no rebound, no hepatosplenomegaly, no masses. EXTREMITIES: 2+ pulses, warm, well-perfused, no edema. NEUROLOGICAL: Cranial nerves II through XII grossly intact. Normal speech, gait not observed. PSYCH: Normal mood, normal affect. SKIN: Warm, dry, normal turgor, no rashes or lesions noted : positive for Correa , new correa today since was clogged (10/21/2017) Laboratory Results - last 24 hr 10/20/17 10/21/17 10/21/17 21:35 05:44 06:00 WBC RBC Hgb Hct MCV MCH MCHC RDW Plt Count MPV Neutrophils % Lymphocytes % Monocytes % Eosinophils % Basophils % PT with INR 16.40 H INR 1.45 H PTT (Actin FS) 31.9 Sodium Potassium Chloride Carbon Dioxide Anion Gap BUN Creatinine Creat Clearance w eGFR POC Glucometer 281 195 Random Glucose Calcium Phosphorus Magnesium Total Bilirubin AST ALT Alkaline Phosphatase Total Protein Albumin 10/21/17 10/21/17 10/21/17 06:00 06:00 11:25 WBC 8.2 RBC 3.73 L Hgb 9.8 L Hct 31.4 L MCV 84.2 MCH 26.2 MCHC 31.2 L RDW 17.8 H Plt Count 296 MPV 9.3 Neutrophils % 78.9 Lymphocytes % 9.4 Monocytes % 9.0 Eosinophils % 2.0 Basophils % 0.7 PT with INR INR PTT (Actin FS) Sodium 138 Potassium 4.3 Chloride 106 Carbon Dioxide 24 Anion Gap 8 BUN 55 H Creatinine 2.3 H Creat Clearance w eGFR 28.01 POC Glucometer 257 Random Glucose 168 H Calcium 8.3 L Phosphorus 3.7 Magnesium 2.0 Total Bilirubin 0.5 AST 9 L ALT 17 Alkaline Phosphatase 109 Total Protein 7.0 Albumin 3.1 L Active Medications Generic Name Dose Route Start Last Admin Trade Name Freq PRN Reason Stop Dose Admin Allopurinol 100 mg 10/19/17 10:00 10/21/17 09:48 Zyloprim - PO 100 mg DAILY E[facility]ANOR Administration Apixaban 2.5 mg 10/20/17 10:00 10/21/17 09:47 Eliquis - PO 2.5 mg BID ELEANOR Administration Atorvastatin Calcium 40 mg 10/19/17 22:00 10/20/17 21:37 Lipitor - PO 40 mg HS ELEANOR Administration Calcitriol 0.25 mcg 10/19/17 06:00 10/21/17 16:11 Rocaltrol - PO Not Given TID ELEANOR Carvedilol 12.5 mg 10/19/17 10:00 10/21/17 09:49 Coreg - PO 12.5 mg BID ELEANOR Administration Colchicine 0.6 mg 10/21/17 10:00 10/21/17 09:48 Colcrys - PO 0.6 mg DAILY ELEANOR Administration Docusate Sodium 50 mg 10/19/17 10:00 10/21/17 09:49 Colace Liquid - PO Not Given BID ELEANOR Febuxostat 40 mg 10/19/17 10:00 10/21/17 09:50 Uloric - PO 40 mg DAILY E[facility]ANOR Administration Finasteride 20 mg 10/19/17 10:00 10/21/17 09:46 Proscar - PO 20 mg DAILY E[facility] Administration Folic Acid 1 mg 10/19/17 10:00 10/21/17 09:47 Folic Acid - PO 1 mg DAILY E[facility] Administration Furosemide 40 mg 10/19/17 06:00 10/21/17 16:03 Lasix - PO 40 mg BIDLASIX E[facility]ANOR Administration Ertapenem 1 gm/ Sodium 100 mls @ 200 mls/hr 10/19/17 15:30 10/21/17 09:46 Chloride IVPB 200 mls/hr DAILY E[facility]OR Administration Protocol Insulin Aspart 1 vial 10/19/17 07:00 10/21/17 11:29 Novolog Vial Sliding Scale - SQ 6 unit ACHS ELEANOR Administration Protocol Losartan Potassium 50 mg 10/19/17 10:00 10/21/17 09:48 Cozaar - PO 50 mg DAILY E[facility] Administration Magnesium Hydroxide 30 ml 10/20/17 17:32 10/21/17 03:19 Milk Of Magnesia - PO 30 ml DAILY PRN Administration CONSTIPATION Misoprostol 200 mcg 10/19/17 06:00 10/21/17 16:04 Cytotec - PO 200 mcg TID E[facility]AN[facility] Administration Pantoprazole Sodium 40 mg 10/19/17 10:00 10/21/17 09:47 Protonix - PO 40 mg BID E[facility]AN[facility] Administration Polyethylene Glycol 17 gm 10/19/17 10:00 10/21/17 09:47 Miralax (For Daily Use) - PO Not Given DAILY E[facility]ANOR Potassium Chloride 20 meq 10/19/17 10:00 10/21/17 09:47 K-Dur - PO 20 meq DAILY E[facility]OR Administration Senna 1 tab 10/19/17 02:24 Senna - PO DAILY PRN CONSTIPATION Sodium Bicarbonate 650 mg 10/19/17 06:00 10/21/17 16:03 Sodium Bicarbonate - PO 650 mg TID E[facility]ANOR Administration Tamsulosin HCl 0.4 mg 10/19/17 08:30 10/21/17 09:49 Flomax - PO 0.4 mg BID@0830,2200 E[facility]ANOR Administration ASSESSMENT/PLAN: Patient is a 70 M with pmhx. of HTN, HLD, DM, GERD, AFib on Xarelto, CAD, BPH, Neurogenic bladder, GI bleed, Chronic UTIs who presents to ED with complaint of urinary retention for approximately 1 day, being admitted for ESBL E-coli UTI and KIRIT, # Acute UTI with prior cx ( ESBL E-Coli) ; On Ertapenem IV daily for 14 days as ID consult discussed with. # KIRIT over CKD, nephro consulted for further w/u , Renal US ordered, oN Vit D rocatrol continue as per nephro # Afib: Rate Controlled, switched Xarelto to Eliquis since does not want to take renally dosed Xarelto # DM: Sliding scale with coverage # GERD:on Protonix continue # Hx of constipation on Miralax, Senna and colace. Do not give MOM since has a kidney injury can worsen his kidney function. # Urinary catheter chronic on the case on multiple drugs as per Dr.Niyal Shukla. Dvt PPx: On Eliquis now. Visit type - Emergency Visit Emergency Visit: Yes ED Registration Date: 10/19/17 Care time: The patient presented to the Emergency Department on the above date and was hospitalized for further evaluation of their emergent condition. - New Patient This patient is new to me today: No - Critical Care Critical Care patient: No - Discharge Referral Referred to [facility] Med P.C.: No
[2017-10-21] MEDS: ATORVASTATIN CA 40 MG TABLET (FP) PO SCH (22:47)
[2017-10-22] MEDS: MAGNESIUM HYDROX 2400MG/30ML ORAL SUSPENSION 30 ML CUP PO PRN (04:41)
[2017-10-22] MEDS: CALCITRIOL 0.25 MCG CAPSULE (FP) PO SCH ×2 (06:14→14:05)
[2017-10-22] MEDS: SODIUM BICARBONATE 650 MG TABLET PO SCH ×2 (06:15→14:08)
[2017-10-22] MEDS: FUROSEMIDE 40 MG TABLET (FP) PO SCH ×2 (06:15→14:07)
[2017-10-22] MEDS: MISOPROSTOL 200 MCG TABLET PO SCH ×2 (06:15→14:09)
[2017-10-22] MEDS: INSULIN SLIDING SCALE (NOVOLOG) 1 VIAL SQ SCH ×3 (06:19→18:04)
[2017-10-22] MEDS: DOCUSATE NA 100 MG/10 ML UNIT-DOSE CUPS PO SCH (09:21)
[2017-10-22] MEDS: POLYETHYLENE GLYCOL 3350 119 GM BTL PO SCH ×2 (09:22→12:17)
[2017-10-22] MEDS: APIXABAN 2.5 MG TABLET PO SCH (09:30)
[2017-10-22] MEDS: TAMSULOSIN HCL 0.4 MG CAP.ER.24H (FP) PO SCH (09:30)
[2017-10-22] MEDS: LOSARTAN POTASSIUM 50 MG TABLET (FP) PO SCH (09:30)
[2017-10-22] MEDS: CARVEDILOL 12.5 MG TABLET (FP) PO SCH (09:30)
[2017-10-22] MEDS: FOLIC ACID 1 MG TABLET (FP) PO SCH (09:30)
[2017-10-22] MEDS: FINASTERIDE 5 MG TABLET (FP) PO SCH (09:30)
[2017-10-22] MEDS: POTASSIUM CHLORIDE TABS 20 MEQ TABLET.ER (FP) PO SCH (09:30)
[2017-10-22] MEDS: PANTOPRAZOLE 40 MG TABLET (FP) PO SCH (09:30)
[2017-10-22] MEDS: ALLOPURINOL 100 MG TABLET (FP) PO SCH (09:31)
[2017-10-22] MEDS: COLCHICINE 0.6 MG TABLET (FP) PO SCH (09:31)
[2017-10-22] MEDS: FEBUXOSTAT 40 MG TAB PO SCH (09:34)
[2017-10-22] MEDS: ERTAPENEM SODIUM 1 GM in SODIUM CHLORIDE 100 ML IVPB SCH (10:53)
[2017-10-22] MEDS ORDERED: PT OWN MED DRAWER 7, Y5N ONE (14:01)
--- NOTE | 2017-10-22 14:29 | PN ---
Progress Note, Physician History of Present Illness: Pt is alert, afebrile. States he feels well. Tolerating antibiotic. No rash, fever/chills, abd pain/diarrhea. No specific complaints. - Current Medication List Current Medications: Active Medications Allopurinol (Zyloprim -) 100 mg PO DAILY [facility] Last Admin: 10/22/17 09:31 Dose: 100 mg Apixaban (Eliquis -) 2.5 mg PO BID [facility] Last Admin: 10/22/17 09:30 Dose: 2.5 mg Atorvastatin Calcium (Lipitor -) 40 mg PO HS [facility] Last Admin: 10/21/17 22:47 Dose: 40 mg Calcitriol (Rocaltrol -) 0.25 mcg PO DAILY [facility] Carvedilol (Coreg -) 12.5 mg PO BID [facility] Last Admin: 10/22/17 09:30 Dose: 12.5 mg Colchicine (Colcrys -) 0.6 mg PO DAILY [facility] Last Admin: 10/22/17 09:31 Dose: 0.6 mg Docusate Sodium (Colace Liquid -) 50 mg PO BID [facility] Last Admin: 10/22/17 09:21 Dose: Not Given Docusate Sodium (Colace -) 300 mg PO [facility] Febuxostat (Uloric -) 40 mg PO DAILY [facility] Last Admin: 10/22/17 09:34 Dose: 40 mg Finasteride (Proscar -) 20 mg PO DAILY [facility] Last Admin: 10/22/17 09:30 Dose: 20 mg Folic Acid (Folic Acid -) 1 mg PO DAILY [facility] Last Admin: 10/22/17 09:30 Dose: 1 mg Furosemide (Lasix -) 40 mg PO BIDLASIX [facility] Last Admin: 10/22/17 14:07 Dose: 40 mg Ertapenem 1 gm/ Sodium (Chloride) 100 mls @ 200 mls/hr IVPB DAILY [facility] PRN Reason: Protocol Last Admin: 10/22/17 10:53 Dose: 200 mls/hr Insulin Aspart (Novolog Vial Sliding Scale -) 1 vial SQ ACHS [facility] PRN Reason: Protocol Last Admin: 10/22/17 12:12 Dose: 2 unit Losartan Potassium (Cozaar -) 50 mg PO DAILY [facility] Last Admin: 10/22/17 09:30 Dose: 50 mg Misoprostol (Cytotec -) 200 mcg PO TID [facility] Last Admin: 10/22/17 14:09 Dose: 200 mcg Pantoprazole Sodium (Protonix -) 40 mg PO BID [facility] Last Admin: 10/22/17 09:30 Dose: 40 mg Polyethylene Glycol (Miralax (For Daily Use) -) 17 gm PO DAILY [facility] Last Admin: 10/22/17 12:17 Dose: 17 gm Potassium Chloride (K-Dur -) 20 meq PO DAILY [facility] Last Admin: 10/22/17 09:30 Dose: 20 meq Senna (Senna -) 1 tab PO DAILY PRN PRN Reason: CONSTIPATION Sodium Bicarbonate (Sodium Bicarbonate -) 650 mg PO TID [facility] Last Admin: 10/22/17 14:08 Dose: 650 mg Tamsulosin HCl (Flomax -) 0.4 mg PO BID@0830,2200 [facility] Last Admin: 10/22/17 09:30 Dose: 0.4 mg - Objective Vital Signs: Vital Signs Temperature 98.3 F 10/22/17 10:00 Pulse Rate 56 L 10/22/17 10:00 Respiratory Rate 18 10/22/17 10:00 Blood Pressure 132/73 10/22/17 10:00 O2 Sat by Pulse Oximetry (%) 98 10/22/17 09:00 Constitutional: Yes: No Distress, Calm Cardiovascular: Yes: Regular Rate and Rhythm Respiratory: Yes: Regular Gastrointestinal: Yes: Normal Bowel Sounds, Soft Genitourinary: Yes: Barnett Present Extremities: Yes: WNL Labs: CBC, BMP 10/21/17 06:00 10/21/17 06:00 INR, PTT INR 1.45 (0.82-1.09) H 10/21/17 06:00 Problem List - Problems (1) KIRIT (acute kidney injury) Code(s): N17.9 - ACUTE KIDNEY FAILURE, UNSPECIFIED (2) Complicated UTI (urinary tract infection) Code(s): N39.0 - URINARY TRACT INFECTION, SITE NOT SPECIFIED (3) Urinary catheter insertion/adjustment/removal Code(s): Z46.6 - ENCOUNTER FOR FITTING AND ADJUSTMENT OF URINARY DEVICE (4) Urinary tract infection associated with catheterization of urinary tract Code(s): T83.511A - I/I REACT D/T INDWELLING URETHRAL CATHETER, INIT; N39.0 - URINARY TRACT INFECTION, SITE NOT SPECIFIED Qualifiers: Indwelling urinary catheter type: indwelling urethral catheter Encounter type: subsequent encounter Qualified Code(s): T83.511D - Infection and inflammatory reaction due to indwelling urethral catheter, subsequent encounter ; N39.0 - Urinary tract infection, site not specified; N39.0 - Urinary tract infection, site not specified Assessment/Plan DM AFibrillation BPH Obstructive uropathy ESBL + E. Coli UTI - continue Ertapenem - urology following pt afebrile, appears to be doing well
--- NOTE | 2017-10-22 14:34 | PN ---
Progress Note (short form) - Note Progress Note: \ Vital Signs Temperature 98.3 F 10/22/17 10:00 Pulse Rate 56 L 10/22/17 10:00 Respiratory Rate 18 10/22/17 10:00 Blood Pressure 132/73 10/22/17 10:00 O2 Sat by Pulse Oximetry (%) 98 10/22/17 09:00 GENERAL: The patient is awake, alert, and fully oriented, in no acute distress. HEAD: Normal with no signs of trauma. EYES: PERRL, extraocular movements intact, sclera anicteric, conjunctiva clear. ENT: Ears normal, oropharynx clear without exudates, moist mucous membranes. NECK: Trachea midline, full range of motion, supple. LUNGS: Breath sounds equal, clear to auscultation bilaterally, no wheezes, no crackles, no HEART: Regular rate and rhythm, S1, S2 without murmur, rub or gallop. ABDOMEN: Soft, nontender, nondistended, normoactive bowel sounds, no guarding, no rebound, no hepatosplenomegaly, no masses. EXTREMITIES: 2+ pulses, warm, well-perfused, no edema. NEUROLOGICAL: Cranial nerves II through XII grossly intact. Normal speech, gait not observed. PSYCH: Normal mood, normal affect. SKIN: Warm, dry, normal turgor, no rashes or lesions noted : positive for lyndon Correaey today since was clogged (10/21/2017) CBCD WBC 8.2 K/mm3 (4.0-10.0) 10/21/17 06:00 RBC 3.73 M/mm3 (4.00-5.60) L 10/21/17 06:00 Hgb 9.8 GM/dL (11.7-16.9) L 10/21/17 06:00 Hct 31.4 % (35.4-49) L 10/21/17 06:00 MCV 84.2 fl (80-96) 10/21/17 06:00 MCHC 31.2 g/dl (32.0-35.9) L 10/21/17 06:00 RDW 17.8 % (11.9-15.9) H 10/21/17 06:00 Plt Count 296 K/MM3 (134-434) 10/21/17 06:00 MPV 9.3 fl (7.5-11.1) 10/21/17 06:00 CMP Sodium 138 mmol/L (136-145) 10/21/17 06:00 Potassium 4.3 mmol/L (3.5-5.1) 10/21/17 06:00 Chloride 106 mmol/L (98-107) 10/21/17 06:00 Carbon Dioxide 24 mmol/L (21-32) 10/21/17 06:00 Anion Gap 8 (8-16) 10/21/17 06:00 BUN 55 mg/dL (7-18) H 10/21/17 06:00 Creatinine 2.3 mg/dL (0.7-1.3) H 10/21/17 06:00 Creat Clearance w eGFR 28.01 (>60) 10/21/17 06:00 Random Glucose 168 mg/dL (74-106) H 10/21/17 06:00 Calcium 8.3 mg/dL (8.5-10.1) L 10/21/17 06:00 Total Bilirubin 0.5 mg/dL (0.2-1.0) 10/21/17 06:00 AST 9 U/L (15-37) L 10/21/17 06:00 ALT 17 U/L (12-78) 10/21/17 06:00 Alkaline Phosphatase 109 U/L (45-117) 10/21/17 06:00 Total Protein 7.0 g/dl (6.4-8.2) 10/21/17 06:00 Albumin 3.1 g/dl (3.4-5.0) L 10/21/17 06:00 Current Meds: Generic Name Dose Route Start Last Admin Trade Name Cesarq PRN Reason Stop Dose Admin Allopurinol 100 mg 10/19/17 10:00 10/22/17 09:31 Zyloprim - PO 100 mg DAILY E[facility]ANOR Administration Apixaban 2.5 mg 10/20/17 10:00 10/22/17 09:30 Eliquis - PO 2.5 mg BID ELEANOR Administration Atorvastatin Calcium 40 mg 10/19/17 22:00 10/21/17 22:47 Lipitor - PO 40 mg HS ELEANOR Administration Calcitriol 0.25 mcg 10/23/17 10:00 Rocaltrol - PO DAILY [facility] Carvedilol 12.5 mg 10/19/17 10:00 10/22/17 09:30 Coreg - PO 12.5 mg BID ELEANOR Administration Colchicine 0.6 mg 10/21/17 10:00 10/22/17 09:31 Colcrys - PO 0.6 mg DAILY E[facility]ANOR Administration Docusate Sodium 50 mg 10/19/17 10:00 10/22/17 09:21 Colace Liquid - PO Not Given BID ELEANOR Febuxostat 40 mg 10/19/17 10:00 10/22/17 09:34 Uloric - PO 40 mg DAILY E[facility] Administration Finasteride 20 mg 10/19/17 10:00 10/22/17 09:30 Proscar - PO 20 mg DAILY E[facility] Administration Folic Acid 1 mg 10/19/17 10:00 10/22/17 09:30 Folic Acid - PO 1 mg DAILY E[facility]ANOR Administration Furosemide 40 mg 10/19/17 06:00 10/22/17 14:07 Lasix - PO 40 mg BIDLASIX ELEANOR Administration Ertapenem 1 gm/ Sodium 100 mls @ 200 mls/hr 10/19/17 15:30 10/22/17 10:53 Chloride IVPB 200 mls/hr DAILY E[facility]ANOR Administration Protocol Insulin Aspart 1 vial 10/19/17 07:00 10/22/17 12:12 Novolog Vial Sliding Scale - SQ 2 unit ACHS ELEANOR Administration Protocol Losartan Potassium 50 mg 10/19/17 10:00 10/22/17 09:30 Cozaar - PO 50 mg DAILY E[facility] Administration Misoprostol 200 mcg 10/19/17 06:00 10/22/17 14:09 Cytotec - PO 200 mcg TID E[facility]ANOR Administration Pantoprazole Sodium 40 mg 10/19/17 10:00 10/22/17 09:30 Protonix - PO 40 mg BID ELEANOR Administration Polyethylene Glycol 17 gm 10/19/17 10:00 10/22/17 12:17 Miralax (For Daily Use) - PO 17 gm DAILY [facility] Administration Potassium Chloride 20 meq 10/19/17 10:00 10/22/17 09:30 K-Dur - PO 20 meq DAILY E[facility]ANOR Administration Senna 1 tab 10/19/17 02:24 Senna - PO DAILY PRN CONSTIPATION Sodium Bicarbonate 650 mg 10/19/17 06:00 10/22/17 14:08 Sodium Bicarbonate - PO 650 mg TID ELEANOR Administration Tamsulosin HCl 0.4 mg 10/19/17 08:30 10/22/17 09:30 Flomax - PO 0.4 mg BID@0830,2200 ELEANOR Administration Home Medications Medication Instructions Recorded Cod Liver Oil 1 each PO ASDIR 11/08/14 Docusate Sodium [Dulcolax Stool 50 mg PO BID 11/08/14 Softener] Finasteride [Proscar -] 40 mg PO BID 11/08/14 Folic Acid - 1 mg PO DAILY 11/08/14 Calcitriol [Rocaltrol -] 0.25 mcg PO WEEKLY 09/30/17 Diclofenac Sodium [Solaraze] 100 gm TP DAILY 09/30/17 Magnesium Hydroxide [Milk of 400 mg PO QID 09/30/17 Magnesia] Misoprostol 200 mcg PO TID 09/30/17 Nitrofurantoin Macrocrystal 100 mg PO BID 09/30/17 [Macrodantin] Pantoprazole Sodium [Protonix] 40 mg PO BID 09/30/17 Potassium Chloride [Klor-Con 10] 20 meq PO DAILY 09/30/17 Sennosides [Senna] 8.6 mg PO ONCE 09/30/17 Sodium Bicarbonate 650 mg PO TID 09/30/17 Atorvastatin Calcium 40 mg PO DAILY 10/19/17 Carvedilol [Coreg] 12.5 mg PO DAILY 10/19/17 Colchicine 0.6 mg PO DAILY 10/19/17 Esomeprazole Magnesium 1 each PO BID 10/19/17 Furosemide [Lasix] 40 mg PO BID 10/19/17 Losartan Potassium 50 mg PO DAILY 10/19/17 Pantoprazole Sodium [Protonix] 40 mg PO BID 10/19/17 Potassium Chloride [Klor-Con M20] 20 meq PO DAILY 10/19/17 Repaglinide [Prandin] 2 mg PO TID 10/19/17 Rivaroxaban [Xarelto -] 15 mg PO DAILY 10/19/17 Tamsulosin HCl [Flomax] 0.4 mg PO BID 10/19/17 Warfarin Na [Coumadin] 1 mg PO DAILY 10/19/17 ASSESSMENT/PLAN: Patient is a 70 M with pmhx. of HTN, HLD, DM, GERD, AFib on Xarelto, CAD, BPH, Neurogenic bladder, GI bleed, Chronic UTIs who presents to ED with complaint of urinary retention for approximately 1 day, being admitted for ESBL E-coli UTI and KIRIT, # Acute UTI with prior cx ( ESBL E-Coli) ; On Ertapenem IV daily for 14 days as ID consult discussed with. # KIRIT over CKD, nephro consulted for further w/u , Renal US ordered, oN Vit D rocatrol continue as per nephro # Afib: Rate Controlled, switched Xarelto to Eliquis since does not want to take renally dosed Xarelto # DM: Sliding scale with coverage # GERD:on Protonix continue # Hx of constipation on Miralax, Senna and colace. Do not give MOM since has a kidney injury can worsen his kidney function. # Urinary catheter chronic on the case on multiple drugs as per Dr.Niyal Shukla. Dvt PPx: On Eliquis now.
[2017-10-22 17:34] VITALS: BP 149/78; PULSE 59; TEMP 98.4
--- NOTE | 2017-10-22 17:53 | PN ---
Progress Note, Physician History of Present Illness: Pt seen and examined at bedside. He is awake and alert. he denies fevers or chills. - Current Medication List Current Medications: Active Medications Allopurinol (Zyloprim -) 100 mg PO DAILY [facility] Last Admin: 10/22/17 09:31 Dose: 100 mg Apixaban (Eliquis -) 2.5 mg PO BID [facility] Last Admin: 10/22/17 09:30 Dose: 2.5 mg Atorvastatin Calcium (Lipitor -) 40 mg PO HS [facility] Last Admin: 10/21/17 22:47 Dose: 40 mg Calcitriol (Rocaltrol -) 0.25 mcg PO DAILY [facility] Carvedilol (Coreg -) 12.5 mg PO BID [facility] Last Admin: 10/22/17 09:30 Dose: 12.5 mg Colchicine (Colcrys -) 0.6 mg PO DAILY [facility] Last Admin: 10/22/17 09:31 Dose: 0.6 mg Docusate Sodium (Colace Liquid -) 50 mg PO BID [facility] Last Admin: 10/22/17 09:21 Dose: Not Given Febuxostat (Uloric -) 40 mg PO DAILY [facility] Last Admin: 10/22/17 09:34 Dose: 40 mg Finasteride (Proscar -) 20 mg PO DAILY [facility] Last Admin: 10/22/17 09:30 Dose: 20 mg Folic Acid (Folic Acid -) 1 mg PO DAILY [facility] Last Admin: 10/22/17 09:30 Dose: 1 mg Furosemide (Lasix -) 40 mg PO BIDLASIX [facility] Last Admin: 10/22/17 14:07 Dose: 40 mg Ertapenem 1 gm/ Sodium (Chloride) 100 mls @ 200 mls/hr IVPB DAILY [facility] PRN Reason: Protocol Last Admin: 10/22/17 10:53 Dose: 200 mls/hr Insulin Aspart (Novolog Vial Sliding Scale -) 1 vial SQ ACHS [facility] PRN Reason: Protocol Last Admin: 10/22/17 12:12 Dose: 2 unit Losartan Potassium (Cozaar -) 50 mg PO DAILY [facility] Last Admin: 10/22/17 09:30 Dose: 50 mg Misoprostol (Cytotec -) 200 mcg PO TID [facility] Last Admin: 10/22/17 14:09 Dose: 200 mcg Pantoprazole Sodium (Protonix -) 40 mg PO BID [facility] Last Admin: 10/22/17 09:30 Dose: 40 mg Polyethylene Glycol (Miralax (For Daily Use) -) 17 gm PO DAILY [facility] Last Admin: 10/22/17 12:17 Dose: 17 gm Potassium Chloride (K-Dur -) 20 meq PO DAILY [facility] Last Admin: 10/22/17 09:30 Dose: 20 meq Senna (Senna -) 1 tab PO DAILY PRN PRN Reason: CONSTIPATION Sodium Bicarbonate (Sodium Bicarbonate -) 650 mg PO TID [facility] Last Admin: 10/22/17 14:08 Dose: 650 mg Tamsulosin HCl (Flomax -) 0.4 mg PO BID@0830,2200 [facility] Last Admin: 10/22/17 09:30 Dose: 0.4 mg - Objective Vital Signs: Vital Signs Temperature 98.4 F 10/22/17 17:32 Pulse Rate 59 L 10/22/17 17:32 Respiratory Rate 18 10/22/17 17:32 Blood Pressure 149/78 10/22/17 17:32 O2 Sat by Pulse Oximetry (%) 98 10/22/17 09:00 Constitutional: Yes: Calm Eyes: Yes: Conjunctiva Clear HENT: Yes: Atraumatic Neck: Yes: Supple Cardiovascular: Yes: S1, S2 Respiratory: Yes: CTA Bilaterally Gastrointestinal: Yes: Soft Genitourinary: Yes: Barnett Present Musculoskeletal: Yes: WNL Edema: No Neurological: Yes: Oriented Psychiatric: Yes: Oriented Labs: CBC, BMP 10/21/17 06:00 10/21/17 06:00 INR, PTT INR 1.45 (0.82-1.09) H 10/21/17 06:00 Problem List - Problems (1) KIRIT (acute kidney injury) Code(s): N17.9 - ACUTE KIDNEY FAILURE, UNSPECIFIED (2) Complicated UTI (urinary tract infection) Code(s): N39.0 - URINARY TRACT INFECTION, SITE NOT SPECIFIED Assessment/Plan Current Medications Generic Name Dose Route Start Last Admin Trade Name Freq PRN Reason Stop Dose Admin Allopurinol 100 mg 10/19/17 10:00 10/22/17 09:31 Zyloprim - PO 100 mg DAILY [facility] Administration Apixaban 2.5 mg 10/20/17 10:00 10/22/17 09:30 Eliquis - PO 2.5 mg BID [facility] Administration Atorvastatin Calcium 40 mg 10/19/17 22:00 10/21/17 22:47 Lipitor - PO 40 mg HS [facility] Administration Calcitriol 0.25 mcg 10/23/17 10:00 Rocaltrol - PO DAILY [facility] Carvedilol 12.5 mg 10/19/17 10:00 10/22/17 09:30 Coreg - PO 12.5 mg BID [facility] Administration Colchicine 0.6 mg 10/21/17 10:00 10/22/17 09:31 Colcrys - PO 0.6 mg DAILY [facility] Administration Docusate Sodium 50 mg 10/19/17 10:00 10/22/17 09:21 Colace Liquid - PO Not Given BID [facility] Febuxostat 40 mg 10/19/17 10:00 10/22/17 09:34 Uloric - PO 40 mg DAILY [facility] Administration Finasteride 20 mg 10/19/17 10:00 10/22/17 09:30 Proscar - PO 20 mg DAILY [facility] Administration Folic Acid 1 mg 10/19/17 10:00 10/22/17 09:30 Folic Acid - PO 1 mg DAILY [facility] Administration Furosemide 40 mg 10/19/17 06:00 10/22/17 14:07 Lasix - PO 40 mg BIDLASIX [facility] Administration Ertapenem 1 gm/ Sodium 100 mls @ 200 mls/hr 10/19/17 15:30 10/22/17 10:53 Chloride IVPB 200 mls/hr DAILY [facility] Administration Protocol Insulin Aspart 1 vial 10/19/17 07:00 10/22/17 12:12 Novolog Vial Sliding Scale - SQ 2 unit ACHS [facility] Administration Protocol Losartan Potassium 50 mg 10/19/17 10:00 10/22/17 09:30 Cozaar - PO 50 mg DAILY [facility] Administration Misoprostol 200 mcg 10/19/17 06:00 10/22/17 14:09 Cytotec - PO 200 mcg TID [facility] Administration Pantoprazole Sodium 40 mg 10/19/17 10:00 10/22/17 09:30 Protonix - PO 40 mg BID [facility] Administration Polyethylene Glycol 17 gm 10/19/17 10:00 10/22/17 12:17 Miralax (For Daily Use) - PO 17 gm DAILY [facility] Administration Potassium Chloride 20 meq 10/19/17 10:00 10/22/17 09:30 K-Dur - PO 20 meq DAILY [facility] Administration Senna 1 tab 10/19/17 02:24 Senna - PO DAILY PRN CONSTIPATION Sodium Bicarbonate 650 mg 10/19/17 06:00 10/22/17 14:08 Sodium Bicarbonate - PO 650 mg TID [facility] Administration Tamsulosin HCl 0.4 mg 10/19/17 08:30 10/22/17 09:30 Flomax - PO 0.4 mg BID@0830,2200 E[facility]AN[facility] Administration Impression 1. KIRIT with unclear baseline 2. urinary obstruction 3. DM 4. HTN 5. a-fib 6. gout 7. constipation 8. hyperlipidemia 9. BPH 10. 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
--- NOTE | 2017-10-22 18:58 | HOSP ---
Subjective - Review of Symptoms Events since last encounter: Paged by nurse that patient would like to sign out AMA. Arrived in patient's room shortly and had a lengthy discussion on his current medical condition and possible consequence of AMA. He still wants to leave the hospital AMA. He is competent and understand the risks of leaving, including sepsis, fever, chills, rigor, persistent infection, , and he has had an opportunity to ask questions about his condition. He was also informed that he must return for care through emergency room or calling 911 at any time if he experiences any worsening symptom of infection. Physical Examination Vital Signs: Vital Signs Temperature 98.4 F 10/22/17 17:32 Pulse Rate 59 L 10/22/17 17:32 Respiratory Rate 18 10/22/17 17:32 Blood Pressure 149/78 10/22/17 17:32 O2 Sat by Pulse Oximetry (%) 98 10/22/17 09:00 Labs: CBC, BMP 10/21/17 06:00 10/21/17 06:00 Visit type - Emergency Visit Emergency Visit: No - New Patient This patient is new to me today: No - Critical Care Critical Care patient: No
[2017-10-22] MEDS ORDERED: DOCUSATE SODIUM 100 MG CAPSULE (FP) PO SCH (22:00)
[2017-10-23] MEDS ORDERED: CALCITRIOL 0.25 MCG CAPSULE (FP) PO SCH (10:00)
[2017-10-23] MEDS ORDERED: TAMSULOSIN HCL 0.4 MG CAP.ER.24H (FP) PO SCH (13:15)
[2017-10-23] MEDS ORDERED: POTASSIUM CHLORIDE TABS 20 MEQ TABLET.ER (FP) PO SCH (13:15)
[2017-10-23] MEDS ORDERED: CARVEDILOL 12.5 MG TABLET (FP) PO SCH (13:15)
[2017-10-23] MEDS ORDERED: LOSARTAN POTASSIUM 50 MG TABLET (FP) PO SCH (13:15)
[2017-10-23] MEDS ORDERED: FUROSEMIDE 40 MG TABLET (FP) PO SCH (13:15)
[2017-10-23] MEDS ORDERED: REPAGLINIDE 2 MG TABLET (FP) PO SCH (14:00)
[2017-10-24] MEDS ORDERED: ATORVASTATIN CA 40 MG TABLET (FP) PO SCH (10:00)
== END 2017-10-22 19:30 | disposition left against medical advice (07) | DRG 683 ==
LOC: JER 19:03 → JERBED 10-19 00:40 → UNDOADMIN 10-19 00:49 → JERBED 10-19 00:49 → J8W 10-19 02:36
PROVIDERS: ADMIT Internal Medicine; ATTEND Internal Medicine
PROC: 0T9B80Z Drainage of Bladder with Drainage Device, Via Natural or Artificial Opening Endoscopic (ICD-10-PCS; principal; 2017-10-19)
DX: N17.9 Acute kidney failure, unspecified (principal); N39.0 Urinary tract infection, site not specified; I48.91 Unspecified atrial fibrillation; Z16.11 Resistance to penicillins; N40.1 Benign prostatic hyperplasia with lower urinary tract symptoms; R33.8 Other retention of urine; N31.2 Flaccid neuropathic bladder, not elsewhere classified; Z79.01 Long term (current) use of anticoagulants; K21.9 Gastro-esophageal reflux disease without esophagitis; I25.10 Atherosclerotic heart disease of native coronary artery without angina pectoris; E78.5 Hyperlipidemia, unspecified; Z95.810 Presence of automatic (implantable) cardiac defibrillator; B96.20 Unspecified Escherichia coli [E. coli] as the cause of diseases classified elsewhere; E83.51 Hypocalcemia; E87.6 Hypokalemia; E11.22 Type 2 diabetes mellitus with diabetic chronic kidney disease; I12.9 Hypertensive chronic kidney disease with stage 1 through stage 4 chronic kidney disease, or unspecified chronic kidney disease; N18.9 Chronic kidney disease, unspecified; M10.9 Gout, unspecified; K59.00 Constipation, unspecified
CPT/HCPCS: 36415; 76775-TC; 76856-TC; 80053; 81003; 81015; 82436; 82962; 83735; 84100; 84133; 84300; 85025; 85610; 85730; 87086; 87186; 99282-25

== ENCOUNTER 2017-10-22 20:01 | Inpatient (IN) | payer OTHER ==
[2017-10-22 20:18] VITALS: BMI 27.1
--- NOTE | 2017-10-22 20:56 | PDOC ---
History of Present Illness - General Chief Complaint: Wound Stated Complaint: INFECTION Time Seen by Provider: 10/22/17 20:31 History Source: Patient - History of Present Illness Initial Comments: 10/23/17 01:15 72 year old male with a significant past medical history of hypertension, hyperlipidemia, diabetes, GERD, AFib(on Xarelto), CAD, BPH, neurogenic bladder , GI bleed, chronic UTIs who was admitted to our facility on 10/19/17 for urinary retention and signed out AMA earlier today to return home as a house alarm alerted him to a potential break-in. Patient now wishes to be re- admitted for continued medical evaluation including possible cystoscopy tomorrow (10/23/17). Past History - Past Medical History Allergies/Adverse Reactions: Allergies Allergy/AdvReac Type Severity Reaction Status Date / Time ibuprofen [From Motrin] Allergy Intermediate "STOMACH Verified 10/22/17 20:15 BURST" REQUIRING SX & BLOOD TRANSFUSION. Home Medications: Ambulatory Orders Cod Liver Oil 1 each PO ASDIR 11/08/14 Docusate Sodium [Dulcolax Stool Softener] 50 mg PO BID 11/08/14 Finasteride [Proscar -] 40 mg PO BID 11/08/14 Folic Acid - 1 mg PO DAILY 11/08/14 Calcitriol [Rocaltrol -] 0.25 mcg PO WEEKLY 09/30/17 Diclofenac Sodium [Solaraze] 100 gm TP DAILY 09/30/17 Magnesium Hydroxide [Milk of Magnesia] 400 mg PO QID 09/30/17 Misoprostol 200 mcg PO TID 09/30/17 Nitrofurantoin Macrocrystal [Macrodantin] 100 mg PO BID 09/30/17 Pantoprazole Sodium [Protonix] 40 mg PO BID 09/30/17 Potassium Chloride [Klor-Con 10] 20 meq PO DAILY 09/30/17 Sennosides [Senna] 8.6 mg PO ONCE 09/30/17 Sodium Bicarbonate 650 mg PO TID 09/30/17 Atorvastatin Calcium 40 mg PO DAILY 10/19/17 Carvedilol [Coreg] 12.5 mg PO DAILY 10/19/17 Colchicine 0.6 mg PO DAILY 10/19/17 Esomeprazole Magnesium 1 each PO BID 10/19/17 Furosemide [Lasix] 40 mg PO BID 10/19/17 Losartan Potassium 50 mg PO DAILY 10/19/17 Pantoprazole Sodium [Protonix] 40 mg PO BID 10/19/17 Potassium Chloride [Klor-Con M20] 20 meq PO DAILY 10/19/17 Repaglinide [Prandin] 2 mg PO TID 10/19/17 Rivaroxaban [Xarelto -] 15 mg PO DAILY 10/19/17 Tamsulosin HCl [Flomax] 0.4 mg PO BID 10/19/17 Warfarin Na [Coumadin] 1 mg PO DAILY 10/19/17 Cardiac Disorders: Yes (H/O A FIB.) COPD: No Diabetes: Yes HTN: Yes - Surgical History Abdominal Surgery: Yes ("STOMACH BURST", HERNIA) Cardiac Surgery: Yes (BYPASS, ABLATION) - Suicide/Smoking/Psychosocial Hx Smoking History: Never smoked Have you smoked in the past 12 months: No Hx Alcohol Use: No Drug/Substance Use Hx: No Substance Use Type: None Review of Systems - Review of Systems Constitutional: No: Chills, Fever Respiratory: No: Shortness of Breath Cardiac (ROS): No: Chest Pain ABD/GI: No: Constipated, Diarrhea, Nausea, Vomiting : No: Burning, Dysuria *Physical Exam - Vital Signs Last Vital Signs Temp Pulse Resp BP Pulse Ox 97.9 F 83 18 131/69 100 10/22/17 20:15 10/22/17 20:15 10/22/17 20:15 10/22/17 20:15 10/22/17 20:15 - Physical Exam General Appearance: Yes: Nourished, Appropriately Dressed HEENT: positive: EOMI, ARISTIDES Neck: positive: Trachea midline, Supple Respiratory/Chest: positive: Lungs Clear Cardiovascular: positive: S1, S2 Gastrointestinal/Abdominal: positive: Normal Bowel Sounds, Soft Extremity: positive: Normal Capillary Refill, Normal Inspection Integumentary: positive: Normal Color, Dry, Warm ED Treatment Course - LABORATORY CBC & Chemistry Diagram: 10/22/17 23:43 10/22/17 23:43 Medical Decision Making - Medical Decision Making 10/23/17 01:19 72 y.o. male discharged AMA earlier today returns to ED requesting to be re- admitted for continued evaluation including possible cystosopy tomorrow (). On PE patient is hemodynamically stable with no active medical complaints. Case d/w Dr. Zuleyka Fontenot. Requests baseline labs and will evaluate for admission. Labs, EKG, CXR pending. Will monitor while in ED with planned disposition of admission. 10/23/17 01:26 CMP significant for KIRIT (Cr. 2.4) -- likely 2/2 to patient's ongoing renal/ bladder pathology. Patient admitted to inpatient medicine service. Will continue monitor while in ED. *DC/Admit/Observation/Transfer Diagnosis at time of Disposition: Urinary retention - Discharge Dispostion Condition at time of disposition: Fair Admit: Yes - Referrals Referrals: Nelda Thakkar [Primary Care Provider] - - Patient Instructions - Post Discharge Activity
--- NOTE | 2017-10-22 21:55 | PDOC ---
Attending Attestation - Resident Resident Name: Anne Duran - ED Attending Attestation I have performed the following: I have examined & evaluated the patient, The case was reviewed & discussed with the resident, I agree w/resident's findings & plan - HPI HPI: 10/22/17 23:05 Pt has a hx of recurrent UTIs and clogging of his indwelling correa catheter. Pt was admitted for a urologic procedure scheduled for tomorrow. Pt walked out of the hospital today, to respond to an alarm that went off in his home. Pt returns now, but his bed on the med/surg floor has been filled so he begins the process of admission again. - Physicial Exam PE: 10/22/17 23:07 Agree with resident exam. Pt is afebrile; abd is soft NT ND. no flank pain - Medical Decision Making 10/22/17 23:07 Pt will have IV placed; basic labs and he will be signed out to the hospitalists.
[2017-10-22 23:51] LABS: BASO % 0.7 % (0-2.0); EOS % 1.3 % (0-4.5); HEMATOCRIT 31.3 % (35.4-49); HEMOGLOBIN 10.1 GM/dL (11.7-16.9); LYMPH % 7.8 % (8-40); MCH 27.3 pg (25.7-33.7); MCHC 32.3 g/dl (32.0-35.9); MEAN CELL VOLUME 84.5 fl (80-96); MEAN PLT VOLUME 8.9 fl (7.5-11.1); MONO % 10.2 % (3.8-10.2); PLATELET COUNT 302 K/MM3 (134-434); RDW 17.6 % (11.9-15.9); WHITE BLOOD COUNT 7.9 K/mm3 (4.0-10.0)
[2017-10-23 00:05] LABS: INR 1.63 (0.82-1.09); PROTHROMBIN TIME (PATIENT) 18.4 SEC (9.98-11.88)
[2017-10-23 00:48] LABS: ALBUMIN 3.3 g/dl (3.4-5.0); ALK PHOS 104 U/L (45-117); ANION GAP 9 (8-16); BILIRUBIN,TOTAL 0.3 mg/dL (0.2-1.0); BLOOD UREA NITROGEN 55 mg/dL (7-18); CALCIUM 8.9 mg/dL (8.5-10.1); CHLORIDE 100 mmol/L (98-107); CO2 26 mmol/L (21-32); CREATININE 2.4 mg/dL (0.7-1.3); GLUCOSE,RANDOM 251 mg/dL (74-106); POTASSIUM 4.2 mmol/L (3.5-5.1); SGOT/AST 9 U/L (15-37); SGPT/ALT 16 U/L (12-78); SODIUM 135 mmol/L (136-145); TOT PROT 7.4 g/dl (6.4-8.2)
--- NOTE | 2017-10-23 01:19 | PN ---
Teaching Attending Note Name of Resident: Umesh Zhang ATTENDING PHYSICIAN STATEMENT I saw and evaluated the patient. I reviewed the resident's note and discussed the case with the resident. I agree with the resident's findings and plan as documented. SUBJECTIVE: 72 M with hx. of HTN, HLD, GERD, A-Fib on Xarelto, neurogenic bladder, GI bleed , Chronic UTIs who presented on 10/19 with urinary retention. He was found to have ESBL E-Coli and was placed on Ertapenem. He left AMA yesterday bc he thought a alarm went off his home. He was suppossed to have a cystoscopy this Am. OBJECTIVE: Physical: VS: Vital Signs Period Temp Pulse Resp BP Sys/Stewart Pulse Ox Last 24 Hr 97.9 F 83 18 131/69 100 GEN:NAD, resting in bed, AA0X3 HEENT: NCAT, PERRL, throat without erythema or exudates CARD: RRR S1, S2 RESP: CTAB ABD: BSx4, NTD to palpation EXT: - C/C/E CBCD WBC 7.9 K/mm3 (4.0-10.0) 10/22/17 23:43 RBC 3.70 M/mm3 (4.00-5.60) L 10/22/17 23:43 Hgb 10.1 GM/dL (11.7-16.9) L 10/22/17 23:43 Hct 31.3 % (35.4-49) L 10/22/17 23:43 MCV 84.5 fl (80-96) 10/22/17 23:43 MCHC 32.3 g/dl (32.0-35.9) 10/22/17 23:43 RDW 17.6 % (11.9-15.9) H 10/22/17 23:43 Plt Count 302 K/MM3 (134-434) 10/22/17 23:43 MPV 8.9 fl (7.5-11.1) 10/22/17 23:43 CMP Sodium 135 mmol/L (136-145) L 10/22/17 23:43 Potassium 4.2 mmol/L (3.5-5.1) 10/22/17 23:43 Chloride 100 mmol/L (98-107) 10/22/17 23:43 Carbon Dioxide 26 mmol/L (21-32) 10/22/17 23:43 Anion Gap 9 (8-16) 10/22/17 23:43 BUN 55 mg/dL (7-18) H 10/22/17 23:43 Creatinine 2.4 mg/dL (0.7-1.3) H 10/22/17 23:43 Creat Clearance w eGFR 26.67 (>60) 10/22/17 23:43 Random Glucose 251 mg/dL (74-106) H D 10/22/17 23:43 Calcium 8.9 mg/dL (8.5-10.1) 10/22/17 23:43 Total Bilirubin 0.3 mg/dL (0.2-1.0) D 10/22/17 23:43 AST 9 U/L (15-37) L 10/22/17 23:43 ALT 16 U/L (12-78) 10/22/17 23:43 Alkaline Phosphatase 104 U/L (45-117) 10/22/17 23:43 Total Protein 7.4 g/dl (6.4-8.2) 10/22/17 23:43 Albumin 3.3 g/dl (3.4-5.0) L 10/22/17 23:43 ASSESSMENT AND PLAN: 72 M with hx. of HTN, HLD, GERD, A-Fib on Xarelto, neurogenic bladder, GI bleed , Chronic UTIs who presented on 10/19 with urinary retention, being admitted for cystoscopy tomorrow and ESBL UTI 1.) ESBL UTI - C/W Ertapenum total 14 days - ID consult 2.) KIRIT on CKDS - Nephro consult - C/W Vit. D/ Rocatrol 3.) Urinary Retention - Barnett - Uro consult - Cysto as per uro 4.) GERD - C/W Protonix 5.) Afib - Rate Controlled - Hold Eliquis for procedure 6.) Constipation - C/W Miralax/Senna 7.) Dvt Ppx - SCDS Place in Med-SX
[2017-10-23] MEDS ORDERED: COD LIVER OIL PO SCH (01:45)
--- NOTE | 2017-10-23 02:20 | HP ---
CHIEF COMPLAINT: urinary retention PCP: HISTORY OF PRESENT ILLNESS: The patient is a 72 year old male with a significant past medical history of hypertension, hyperlipidemia, diabetes, GERD, AFib(on Xarelto), CAD, BPH, neurogenic bladder, GI bleed, chronic UTIs, who presents to the emergency department complaining of urinary retention. Pt was admitted to the hospital recently for this problem. Today, the alarm went off at his home, so he signed out AMA and has returned to the hospital to continue his workup and treatment. He feels fine presently. No new complaints. Denies headache, fever, chills, nausea, vomiting, diarrhea. ER course was notable for: (1) Na 135, Rayon Coner 2.4, (2) unremarkable CXR (3) Recent Travel: denies PAST MEDICAL HISTORY: as above PAST SURGICAL HISTORY: Social History: Smoking: denies Alcohol: denies Drugs: denies Family History: denies Allergies ibuprofen [From Motrin] Allergy (Intermediate, Verified 10/22/17 20:15) "STOMACH BURST" REQUIRING SX & BLOOD TRANSFUSION. HOME MEDICATIONS: Home Medications Medication Instructions Recorded Cod Liver Oil 1 each PO ASDIR 11/08/14 Docusate Sodium [Dulcolax Stool 50 mg PO BID 11/08/14 Softener] Finasteride [Proscar -] 40 mg PO BID 11/08/14 Folic Acid - 1 mg PO DAILY 11/08/14 Calcitriol [Rocaltrol -] 0.25 mcg PO WEEKLY 09/30/17 Diclofenac Sodium [Solaraze] 100 gm TP DAILY 09/30/17 Magnesium Hydroxide [Milk of 400 mg PO QID 09/30/17 Magnesia] Misoprostol 200 mcg PO TID 09/30/17 Nitrofurantoin Macrocrystal 100 mg PO BID 09/30/17 [Macrodantin] Pantoprazole Sodium [Protonix] 40 mg PO BID 09/30/17 Potassium Chloride [Klor-Con 10] 20 meq PO DAILY 09/30/17 Sennosides [Senna] 8.6 mg PO ONCE 09/30/17 Sodium Bicarbonate 650 mg PO TID 09/30/17 Atorvastatin Calcium 40 mg PO DAILY 10/19/17 Carvedilol [Coreg] 12.5 mg PO DAILY 10/19/17 Colchicine 0.6 mg PO DAILY 10/19/17 Esomeprazole Magnesium 1 each PO BID 10/19/17 Furosemide [Lasix] 40 mg PO BID 10/19/17 Losartan Potassium 50 mg PO DAILY 10/19/17 Pantoprazole Sodium [Protonix] 40 mg PO BID 10/19/17 Potassium Chloride [Klor-Con M20] 20 meq PO DAILY 10/19/17 Repaglinide [Prandin] 2 mg PO TID 10/19/17 Rivaroxaban [Xarelto -] 15 mg PO DAILY 10/19/17 Tamsulosin HCl [Flomax] 0.4 mg PO BID 10/19/17 Warfarin Na [Coumadin] 1 mg PO DAILY 10/19/17 REVIEW OF SYSTEMS CONSTITUTIONAL: Absent: fever, chills, diaphoresis, generalized weakness, HEENT: Absent: rhinorrhea, nasal congestion, throat pain, throat swelling, difficulty swallowing, CARDIOVASCULAR: Absent: chest pain, syncope, palpitations, irregular heart rate, peripheral edema RESPIRATORY: Absent: cough, shortness of breath, dyspnea with exertion, orthopnea, GASTROINTESTINAL: Absent: abdominal pain, abdominal distension, nausea, vomiting, diarrhea, constipation, GENITOURINARY: chronic correa Absent: dysuria, frequency, urgency, hesitancy, hematuria, flank pain, genital pain MUSCULOSKELETAL: Absent: myalgia, arthralgia, joint swelling, back pain, neck pain SKIN: Absent: rash, itching, pallor HEMATOLOGIC/IMMUNOLOGIC: Absent: easy bleeding, easy bruising, lymphadenopathy, frequent infections ENDOCRINE: Absent: unexplained weight gain, unexplained weight loss, heat intolerance, cold intolerance NEUROLOGIC: Absent: headache, focal weakness or paresthesias, dizziness, unsteady gait, seizure, mental status changes, bladder or bowel incontinence PSYCHIATRIC: Absent: anxiety, depression, suicidal or homicidal ideation, hallucinations. PHYSICAL EXAMINATION Vital Signs - 24 hr 10/22/17 20:15 Temperature 97.9 F Pulse Rate 83 Respiratory 18 Rate Blood Pressure 131/69 O2 Sat by Pulse 100 Oximetry (%) GENERAL: Awake, alert, and fully oriented, in no acute distress. HEAD: Normal with no signs of trauma. EYES: Pupils equal, round and reactive to light, extraocular movements intact, sclera anicteric, conjunctiva clear. No lid lag. EARS, NOSE, THROAT: oropharynx clear without exudates. Moist mucous membranes. NECK: Normal range of motion, supple without lymphadenopathy, JVD, or masses. LUNGS: Breath sounds equal, clear to auscultation bilaterally. No wheezes, and no crackles. No accessory muscle use. HEART: Regular rate and rhythm, normal S1 and S2 without murmur, rub or gallop appreciated. ABDOMEN: Soft, nontender, not distended, normoactive bowel sounds, no guarding, no rebound, no masses. midline scar. Diastasis recti. No hepatomegaly or splenomegaly. MUSCULOSKELETAL: Normal range of motion at all joints. No bony deformities or tenderness. No CVA tenderness. UPPER EXTREMITIES: 2+ pulses, warm, well-perfused. No cyanosis. No clubbing. No peripheral edema. LOWER EXTREMITIES: 2+ pulses, warm, well-perfused. No calf tenderness. No peripheral edema. NEUROLOGICAL: Cranial nerves II-XII intact. Normal speech. Normal gait. PSYCHIATRIC: Cooperative. Good eye contact. Appropriate mood and affect. SKIN: Warm, dry, normal turgor, no rashes or lesions noted, normal capillary refill. Laboratory Results - last 24 hr 10/22/17 10/22/17 10/22/17 23:43 23:43 23:43 WBC 7.9 RBC 3.70 L Hgb 10.1 L Hct 31.3 L MCV 84.5 MCH 27.3 MCHC 32.3 RDW 17.6 H Plt Count 302 MPV 8.9 Neutrophils % 80.0 Lymphocytes % 7.8 L Monocytes % 10.2 Eosinophils % 1.3 Basophils % 0.7 PT with INR 18.40 H INR 1.63 H Sodium 135 L Potassium 4.2 Chloride 100 Carbon Dioxide 26 Anion Gap 9 BUN 55 H Creatinine 2.4 H Creat Clearance w eGFR 26.67 Random Glucose 251 H D Calcium 8.9 Total Bilirubin 0.3 D AST 9 L ALT 16 Alkaline Phosphatase 104 Total Protein 7.4 Albumin 3.3 L Blood Type Antibody Screen 10/22/17 23:43 WBC RBC Hgb Hct MCV MCH MCHC RDW Plt Count MPV Neutrophils % Lymphocytes % Monocytes % Eosinophils % Basophils % PT with INR INR Sodium Potassium Chloride Carbon Dioxide Anion Gap BUN Creatinine Creat Clearance w eGFR Random Glucose Calcium Total Bilirubin AST ALT Alkaline Phosphatase Total Protein Albumin Blood Type O POSITIVE Antibody Screen Negative ASSESSMENT/PLAN: Patient is a 70 M with pmhx. of HTN, HLD, DM, GERD, AFib, CAD, BPH, Neurogenic bladder, GI bleed, Chronic UTIs who presents to ED with complaint of urinary retention for approximately 1 day, being admitted for ESBL E-coli UTI and KIRIT. Pt left hospital AMA this afternoon and is back to continue his workup. #UTI -has been on Ertapenem. Will resume -Consult ID, Dr. Leo -likely to go for cystoscopy tomorrow am with Dr. Shukla #KIRIT on CKD -pt had renal u/s ordered -consult nephrology, Dr. Ledbetter #Afib -on eliquis. Will hold for procedure tomorrow #DM -BGM -ISS #GERD -Protonix #Constipation -miralax -senna -colace #FEN -not on fluids -lytes wnl -NPO #PPx -holding eliquis #Dispo -admit to catherine Zhang MD PGY-1 IM Visit type - Emergency Visit Emergency Visit: Yes Care time: The patient presented to the Emergency Department on the above date and was hospitalized for further evaluation of their emergent condition. - New Patient This patient is new to me today: Yes Date on this admission: 10/23/17 - Critical Care Critical Care patient: No
[2017-10-23] MEDS ORDERED: FUROSEMIDE 40 MG TABLET (FP) ONE (06:14)
[2017-10-23] MEDS ORDERED: HEPARIN NA (PORCINE) 5,000 UNITS/ML 1ML VIAL ONE (06:14)
[2017-10-23] MEDS: HEPARIN NA (PORCINE) 5,000 UNITS/ML 1ML VIAL SQ SCH ×3 (06:25→21:57)
[2017-10-23] MEDS: FUROSEMIDE 40 MG TABLET (FP) PO SCH ×2 (06:26→14:09)
[2017-10-23] MEDS: MISOPROSTOL 200 MCG TABLET PO SCH ×3 (06:37→21:56)
[2017-10-23] MEDS: SODIUM BICARBONATE 650 MG TABLET PO SCH ×3 (06:37→21:57)
[2017-10-23] MEDS ORDERED: ERTAPENEM SODIUM 1 GM in SODIUM CHLORIDE 50 ML IVPB SCH (10:00)
[2017-10-23] MEDS ORDERED: APIXABAN 2.5 MG TABLET PO SCH (10:00)
[2017-10-23] MEDS ORDERED: FINASTERIDE 5 MG TABLET (FP) PO SCH ×2 (10:00)
[2017-10-23] MEDS ORDERED: COLCHICINE 0.6 MG TABLET (FP) PO SCH (10:00)
[2017-10-23] MEDS ORDERED: ERTAPENEM SODIUM 1 GM/50 ML PRE-DOCKED IVPB SCH (10:00)
[2017-10-23] MEDS: DOCUSATE NA 100 MG/10 ML UNIT-DOSE CUPS PO SCH ×2 (11:52→21:57)
[2017-10-23] MEDS: TAMSULOSIN HCL 0.4 MG CAP.ER.24H (FP) PO SCH ×2 (11:53→21:57)
[2017-10-23] MEDS: CARVEDILOL 12.5 MG TABLET (FP) PO SCH (11:53)
[2017-10-23] MEDS: LOSARTAN POTASSIUM 50 MG TABLET (FP) PO SCH (11:53)
[2017-10-23] MEDS: POTASSIUM CHLORIDE TABS 20 MEQ TABLET.ER (FP) PO SCH (11:54)
[2017-10-23] MEDS: POLYETHYLENE GLYCOL 3350 119 GM BTL PO SCH (11:54)
[2017-10-23] MEDS: FOLIC ACID 1 MG TABLET (FP) PO SCH (11:54)
[2017-10-23] MEDS: PANTOPRAZOLE 40 MG TABLET (FP) PO SCH ×2 (11:55→21:57)
[2017-10-23] MEDS: ALLOPURINOL 100 MG TABLET (FP) PO SCH (11:56)
[2017-10-23] MEDS: SENNOSIDES 8.6MG TABLET (FP) PO SCH (11:56)
[2017-10-23] MEDS: FEBUXOSTAT 40 MG TAB PO SCH (11:56)
--- NOTE | 2017-10-23 12:44 | EKG ---
Test Reason : Blood Pressure : / mmHG Vent. Rate : 066 BPM Atrial Rate : 092 BPM P-R Int : 000 ms QRS Dur : 116 ms QT Int : 456 ms P-R-T Axes : 000 052 171 degrees QTc Int : 478 ms ATRIAL FIBRILLATION CANNOT RULE OUT INFERIOR INFARCT , AGE UNDETERMINED ABNORMAL ECG WHEN COMPARED WITH ECG OF 30-SEP-2017 05:24, PREMATURE VENTRICULAR COMPLEXES ARE NO LONGER PRESENT Confirmed by BRI COLLINS, JERI ([id number]) on 10/23/2017 12:44:01 PM Referred By: Confirmed By:JERI GREGORY MD
--- NOTE | 2017-10-23 13:17 | PN ---
<Patricio Bustillo - Last Filed: 10/23/17 13:21> Physical Exam: SUBJECTIVE: Patient seen and examined In ER. He stated he had to sign out AMA and went home to take care of business. He came back through ED last night seeking re- admission. He's feeling fine otherwise. OBJECTIVE: Vital Signs Period Temp Pulse Resp BP Sys/Stewart Pulse Ox Last 24 Hr 97.4 F-98.1 F 65-83 16-20 131-174/69-97 97-100 GENERAL: Awake, alert, and fully oriented, in no acute distress. EYES: Pupils equal, round and reactive to light, extraocular movements intact, sclera anicteric, conjunctiva clear. No lid lag. EARS, NOSE, THROAT: oropharynx clear without exudates. Moist mucous membranes. NECK: Normal range of motion, supple without lymphadenopathy, JVD, or masses. LUNGS: Breath sounds equal, clear to auscultation bilaterally. No wheezes, and no crackles. No accessory muscle use. HEART: Regular rate and rhythm, normal S1 and S2 without murmur, rub or gallop appreciated. ABDOMEN: Soft, nontender, not distended, normoactive bowel sounds, no guarding, no rebound, no masses. midline scar. Diastasis recti. No hepatomegaly or splenomegaly. UPPER EXTREMITIES: 2+ pulses, warm, well-perfused. No cyanosis. No clubbing. No peripheral edema. LOWER EXTREMITIES: 2+ pulses, warm, well-perfused. No calf tenderness. No peripheral edema. NEUROLOGICAL: Cranial nerves II-XII intact. Normal speech. Normal gait. PSYCHIATRIC: Cooperative. Good eye contact. Appropriate mood and affect. Laboratory Results - last 24 hr 10/22/17 10/22/17 10/22/17 23:43 23:43 23:43 WBC 7.9 RBC 3.70 L Hgb 10.1 L Hct 31.3 L MCV 84.5 MCH 27.3 MCHC 32.3 RDW 17.6 H Plt Count 302 MPV 8.9 Neutrophils % 80.0 Lymphocytes % 7.8 L Monocytes % 10.2 Eosinophils % 1.3 Basophils % 0.7 PT with INR 18.40 H INR 1.63 H Sodium 135 L Potassium 4.2 Chloride 100 Carbon Dioxide 26 Anion Gap 9 BUN 55 H Creatinine 2.4 H Creat Clearance w eGFR 26.67 POC Glucometer Random Glucose 251 H D Calcium 8.9 Total Bilirubin 0.3 D AST 9 L ALT 16 Alkaline Phosphatase 104 Total Protein 7.4 Albumin 3.3 L Blood Type Antibody Screen 10/22/17 10/23/17 23:43 12:24 WBC RBC Hgb Hct MCV MCH MCHC RDW Plt Count MPV Neutrophils % Lymphocytes % Monocytes % Eosinophils % Basophils % PT with INR INR Sodium Potassium Chloride Carbon Dioxide Anion Gap BUN Creatinine Creat Clearance w eGFR POC Glucometer [phone] Random Glucose Calcium Total Bilirubin AST ALT Alkaline Phosphatase Total Protein Albumin Blood Type O POSITIVE Antibody Screen Negative Active Medications Generic Name Dose Route Start Last Admin Trade Name Freq PRN Reason Stop Dose Admin Allopurinol 100 mg 10/23/17 10:00 10/23/17 11:56 Zyloprim - PO 100 mg DAILY [facility] Administration Atorvastatin Calcium 40 mg 10/23/17 22:00 Lipitor - PO HS [facility] Calcitriol 0.25 mcg 10/23/17 10:00 Rocaltrol - PO MoWeFr@1000 [facility] Carvedilol 12.5 mg 10/23/17 10:00 10/23/17 11:53 Coreg - PO 12.5 mg DAILY [facility] Administration Colchicine 0.6 mg 10/23/17 10:00 10/23/17 11:52 Colcrys - PO 0.6 mg DAILY [facility] Administration Docusate Sodium 50 mg 10/23/17 10:00 10/23/17 11:52 Colace Liquid - PO 50 mg BID [facility] Administration Febuxostat 40 mg 10/23/17 10:00 10/23/17 11:56 Uloric - PO 40 mg DAILY [facility] Administration Finasteride 20 mg 10/23/17 10:00 Proscar - PO DAILY [facility] Folic Acid 1 mg 10/23/17 10:00 10/23/17 11:54 Folic Acid - PO 1 mg DAILY [facility] Administration Furosemide 40 mg 10/23/17 06:00 10/23/17 06:26 Lasix - PO 40 mg BIDLASIX [facility] Administration Heparin Sodium (Porcine) 5,000 unit 10/23/17 06:00 10/23/17 06:25 Heparin - SQ 5,000 unit TID [facility] Administration Ertapenem 1 gm/ Sodium 50 mls @ 50 mls/hr 10/23/17 10:00 10/23/17 10:45 Chloride IVPB 50 mls/hr DAILY [facility] Administration Losartan Potassium 50 mg 10/23/17 10:00 10/23/17 11:53 Cozaar - PO 50 mg DAILY [facility] Administration Misoprostol 200 mcg 10/23/17 06:00 10/23/17 06:37 Cytotec - PO 200 mcg TID [facility] Administration Pantoprazole Sodium 40 mg 10/23/17 10:00 10/23/17 11:55 Protonix - PO 40 mg BID [facility] Administration Polyethylene Glycol 17 gm 10/23/17 10:00 10/23/17 11:54 Miralax (For Daily Use) - PO Not Given DAILY [facility] Potassium Chloride 20 meq 10/23/17 10:00 10/23/17 11:54 K-Dur - PO 20 meq DAILY [facility] Administration Senna 1 tab 10/23/17 10:00 10/23/17 11:56 Senna - PO 1 tab DAILY [facility] Administration Sodium Bicarbonate 650 mg 10/23/17 06:00 10/23/17 06:37 Sodium Bicarbonate - PO 650 mg TID [facility] Administration Tamsulosin HCl 0.4 mg 10/23/17 08:30 10/23/17 11:53 Flomax - PO 0.4 mg BID@0830,2200 [facility] Administration ASSESSMENT/PLAN: Patient is a 70 M with pmhx. of HTN, HLD, DM, GERD, AFib, CAD, BPH, Neurogenic bladder, GI bleed, Chronic UTIs who presents to ED with complaint of urinary retention for approximately 1 day, being admitted for ESBL E-coli UTI and KIRIT. Pt left hospital AMA this afternoon and is back to continue his workup. #UTI -h/o ESBL and indwelling correa -f/u urine cx -Cont. ertapenem day 5 -Dr. Leo on the case -monitor i/o #BPH -cystoscopy today with Dr. Shukla #KIRIT on CKD -cont. to hold nephrotoxic medications: colchicine #Afib -rate controlled -On xarelto, hold for procedure #DM -BGM -ISS #GERD -Protonix #Constipation -miralax -senna -colace #FEN -not on fluids -lytes wnl -NPO #PPx -holding xarelto #Dispo -admit to medsurg Visit type - Emergency Visit Emergency Visit: No - New Patient This patient is new to me today: No - Critical Care Critical Care patient: No <Malena Wilkerson - Last Filed: 10/23/17 19:22> Physical Exam: Patient seen and examined. Patient came back to ED. after signing AMA. PAtient re-started the IV antibiotic by ID, waiting for urologist. Vital Signs Temperature 97.8 F 10/23/17 17:37 Pulse Rate 62 10/23/17 17:37 Respiratory Rate 20 10/23/17 17:37 Blood Pressure 143/82 10/23/17 17:37 O2 Sat by Pulse Oximetry (%) 97 10/23/17 14:45 CBCD WBC 7.9 K/mm3 (4.0-10.0) 10/22/17 23:43 RBC 3.70 M/mm3 (4.00-5.60) L 10/22/17 23:43 Hgb 10.1 GM/dL (11.7-16.9) L 10/22/17 23:43 Hct 31.3 % (35.4-49) L 10/22/17 23:43 MCV 84.5 fl (80-96) 10/22/17 23:43 MCHC 32.3 g/dl (32.0-35.9) 10/22/17 23:43 RDW 17.6 % (11.9-15.9) H 10/22/17 23:43 Plt Count 302 K/MM3 (134-434) 10/22/17 23:43 MPV 8.9 fl (7.5-11.1) 10/22/17 23:43 CMP Sodium 135 mmol/L (136-145) L 10/22/17 23:43 Potassium 4.2 mmol/L (3.5-5.1) 10/22/17 23:43 Chloride 100 mmol/L (98-107) 10/22/17 23:43 Carbon Dioxide 26 mmol/L (21-32) 10/22/17 23:43 Anion Gap 9 (8-16) 10/22/17 23:43 BUN 55 mg/dL (7-18) H 10/22/17 23:43 Creatinine 2.4 mg/dL (0.7-1.3) H 10/22/17 23:43 Creat Clearance w eGFR 26.67 (>60) 10/22/17 23:43 Random Glucose 251 mg/dL (74-106) H D 10/22/17 23:43 Calcium 8.9 mg/dL (8.5-10.1) 10/22/17 23:43 Total Bilirubin 0.3 mg/dL (0.2-1.0) D 10/22/17 23:43 AST 9 U/L (15-37) L 10/22/17 23:43 ALT 16 U/L (12-78) 10/22/17 23:43 Alkaline Phosphatase 104 U/L (45-117) 10/22/17 23:43 Total Protein 7.4 g/dl (6.4-8.2) 10/22/17 23:43 Albumin 3.3 g/dl (3.4-5.0) L 10/22/17 23:43 Current Medications Generic Name Dose Route Start Last Admin Trade Name Freq PRN Reason Stop Dose Admin Allopurinol 100 mg 10/23/17 10:00 10/23/17 11:56 Zyloprim - PO 100 mg DAILY [facility] Administration Atorvastatin Calcium 40 mg 10/23/17 22:00 Lipitor - PO HS [facility] Calcitriol 0.25 mcg 10/23/17 10:00 10/23/17 14:09 Rocaltrol - PO 0.25 mcg MoWeFr@1000 [facility] Administration Carvedilol 12.5 mg 10/23/17 10:00 10/23/17 11:53 Coreg - PO 12.5 mg DAILY [facility] Administration Docusate Sodium 50 mg 10/23/17 10:00 10/23/17 11:52 Colace Liquid - PO 50 mg BID [facility] Administration Febuxostat 40 mg 10/23/17 10:00 10/23/17 11:56 Uloric - PO 40 mg DAILY [facility] Administration Finasteride 40 mg 10/23/17 13:30 Proscar - PO BID [facility] Folic Acid 1 mg 10/23/17 10:00 10/23/17 11:54 Folic Acid - PO 1 mg DAILY [facility] Administration Furosemide 40 mg 10/23/17 06:00 10/23/17 14:09 Lasix - PO 40 mg BIDLASIX [facility] Administration Heparin Sodium (Porcine) 5,000 unit 10/23/17 06:00 10/23/17 14:08 Heparin - SQ 5,000 unit TID [facility] Administration Ertapenem 0.5 gm/ Sodium 100 mls @ 200 mls/hr 10/23/17 14:45 10/23/17 17:32 Chloride IVPB Not Given DAILY [facility] Protocol Losartan Potassium 50 mg 10/23/17 10:00 10/23/17 11:53 Cozaar - PO 50 mg DAILY [facility] Administration Magnesium Hydroxide 30 ml 10/23/17 16:15 10/23/17 17:55 Milk Of Magnesia - PO 30 ml TID [facility] Administration Misoprostol 200 mcg 10/23/17 06:00 10/23/17 14:08 Cytotec - PO 200 mcg TID [facility] Administration Non-Formulary Medication 100 gm 10/23/17 13:30 Diclofenac Sodium [Solaraze] TP DAILY [facility] Pantoprazole Sodium 40 mg 10/23/17 10:00 10/23/17 11:55 Protonix - PO 40 mg BID [facility] Administration Polyethylene Glycol 17 gm 10/23/17 10:00 10/23/17 11:54 Miralax (For Daily Use) - PO Not Given DAILY [facility] Potassium Chloride 20 meq 10/23/17 10:00 10/23/17 11:54 K-Dur - PO 20 meq DAILY [facility] Administration Repaglinide 2 mg 10/23/17 16:30 10/23/17 18:35 Prandin - PO 2 mg TIDAC [facility] Administration Senna 1 tab 10/23/17 10:00 10/23/17 11:56 Senna - PO 1 tab DAILY [facility] Administration Sodium Bicarbonate 650 mg 10/23/17 06:00 10/23/17 14:10 Sodium Bicarbonate - PO 650 mg TID [facility] Administration Tamsulosin HCl 0.4 mg 10/23/17 08:30 10/23/17 11:53 Flomax - PO 0.4 mg BID@0830,2200 [facility] Administration Home Medications Medication Instructions Recorded Cod Liver Oil 1 each PO ASDIR 11/08/14 Docusate Sodium [Dulcolax Stool 50 mg PO DAILY PRN 11/08/14 Softener] Finasteride [Proscar -] 20 mg PO DAILY 11/08/14 Folic Acid - 1 mg PO DAILY 11/08/14 Calcitriol [Rocaltrol -] 0.25 mcg PO MOWEFR 09/30/17 Diclofenac Sodium [Solaraze] 100 gm TP DAILY 09/30/17 Magnesium Hydroxide [Milk of 400 mg PO QID PRN 09/30/17 Magnesia] Misoprostol 200 mcg PO TID 09/30/17 Nitrofurantoin Macrocrystal 100 mg PO BID 09/30/17 [Macrodantin] Sennosides [Senna] 8.6 mg PO HS 09/30/17 Sodium Bicarbonate 650 mg PO TID 09/30/17 Atorvastatin Calcium 40 mg PO DAILY 10/19/17 Carvedilol [Coreg] 12.5 mg PO BID 10/19/17 Colchicine 0.6 mg PO DAILY 10/19/17 Furosemide [Lasix] 40 mg PO BID 10/19/17 Losartan Potassium 50 mg PO DAILY 10/19/17 Pantoprazole Sodium [Protonix] 40 mg PO BID 10/19/17 Potassium Chloride [Klor-Con M20] 20 meq PO DAILY 10/19/17 Repaglinide [Prandin] 6 mg PO BID 10/19/17 Rivaroxaban [Xarelto -] 15 mg PO DAILY 10/19/17 Tamsulosin HCl [Flomax] 0.4 mg PO BID 10/19/17 Warfarin Na [Coumadin] 1 mg PO DAILY 10/19/17 Alfuzosin HCl [Alfuzosin HCl ER] 10 mg PO DAILY 10/23/17 Allopurinol [Zyloprim -] 100 mg PO DAILY 10/23/17 Febuxostat [Uloric] 40 mg PO DAILY 10/23/17 Insulin Glargine,Hum.rec.anlog 0 unit SQ ASDIR 10/23/17 [Lantus Solostar] Lidocaine 5% Patch [Lidoderm Patch 1 patch TP TID 10/23/17 -] Magnesium Oxide [Mag-Ox -] 400 mg PO DAILY 10/23/17 Multivitamin [Multiple Vitamins] 1 each PO DAILY 10/23/17 Polyethylene Glycol 3350 [Miralax 17 gm PO DAILY 10/23/17 (For Daily Use) -]
[2017-10-23] MEDS ORDERED: DICLOFENAC SODIUM 100 GM TP SCH (13:30)
[2017-10-23] MEDS ORDERED: MAGNESIUM HYDROX 2400MG/30ML ORAL SUSPENSION 30 ML CUP PO SCH (14:00)
[2017-10-23] MEDS: CALCITRIOL 0.25 MCG CAPSULE (FP) PO SCH (14:09)
--- NOTE | 2017-10-23 14:11 | CON.ID ---
Consult Consult Specialty:: infectious diseases Reason for Consultation:: esbl uti - History of Present Illness Chief Complaint: urinary infections History of Present Illness: Pt has a hx of recurrent UTIs and clogging of his indwelling correa catheter. Pt was admitted for a urologic procedure s. Pt walked out of the hospital yesterday, to respond to an alarm that went off in his home. patient no back in the er to complete is abx treatment and for surgical procedure patient is debating if he should get the surgical procedure and now he is not too keen on it currently patient is stable and has no complaints - History Source History Provided By: Patient Limitations to Obtaining History: No Limitations - Past Medical History Cardio/Vascular: Yes: HTN, Hyperlipdemia Gastrointestinal: Yes: GERD Renal/: Yes: Renal Inusuff, Neurogenic Bladder Infectious Disease: Yes: Other (uti) Endocrine: Yes: Diabetes Mellitus - Alcohol/Substance Use Hx Alcohol Use: No - Smoking History Smoking history: Never smoked Have you smoked in the past 12 months: No Home Medications - Allergies Allergies/Adverse Reactions: Allergies Allergy/AdvReac Type Severity Reaction Status Date / Time ibuprofen [From Motrin] Allergy Intermediate "STOMACH Verified 10/22/17 20:15 BURST" REQUIRING SX & BLOOD TRANSFUSION. - Home Medications Home Medications: Ambulatory Orders Cod Liver Oil 1 each PO ASDIR 11/08/14 Docusate Sodium [Dulcolax Stool Softener] 50 mg PO BID 11/08/14 Finasteride [Proscar -] 40 mg PO BID 11/08/14 Folic Acid - 1 mg PO DAILY 11/08/14 Calcitriol [Rocaltrol -] 0.25 mcg PO WEEKLY 09/30/17 Diclofenac Sodium [Solaraze] 100 gm TP DAILY 09/30/17 Magnesium Hydroxide [Milk of Magnesia] 400 mg PO QID 09/30/17 Misoprostol 200 mcg PO TID 09/30/17 Nitrofurantoin Macrocrystal [Macrodantin] 100 mg PO BID 09/30/17 Pantoprazole Sodium [Protonix] 40 mg PO BID 09/30/17 Potassium Chloride [Klor-Con 10] 20 meq PO DAILY 09/30/17 Sennosides [Senna] 8.6 mg PO ONCE 09/30/17 Sodium Bicarbonate 650 mg PO TID 09/30/17 Atorvastatin Calcium 40 mg PO DAILY 10/19/17 Carvedilol [Coreg] 12.5 mg PO DAILY 10/19/17 Colchicine 0.6 mg PO DAILY 10/19/17 Esomeprazole Magnesium 1 each PO BID 10/19/17 Furosemide [Lasix] 40 mg PO BID 10/19/17 Losartan Potassium 50 mg PO DAILY 10/19/17 Pantoprazole Sodium [Protonix] 40 mg PO BID 10/19/17 Potassium Chloride [Klor-Con M20] 20 meq PO DAILY 10/19/17 Repaglinide [Prandin] 2 mg PO TID 10/19/17 Rivaroxaban [Xarelto -] 15 mg PO DAILY 10/19/17 Tamsulosin HCl [Flomax] 0.4 mg PO BID 10/19/17 Warfarin Na [Coumadin] 1 mg PO DAILY 10/19/17 Review of Systems - Review of Systems Constitutional: reports: No Symptoms Eyes: reports: No Symptoms HENT: reports: No Symptoms Neck: reports: No Symptoms Cardiovascular: reports: No Symptoms Respiratory: reports: No Symptoms Gastrointestinal: reports: No Symptoms Genitourinary: reports: Incontinence Musculoskeletal: reports: No Symptoms Integumentary: reports: No Symptoms Neurological: reports: No Symptoms Endocrine: reports: No Symptoms Hematology/Lymphatic: reports: No Symptoms Psychiatric: reports: No Symptoms Physical Exam Vital Signs: Vital Signs Temperature 97.9 F 10/23/17 10:00 Pulse Rate 78 10/23/17 10:00 Respiratory Rate 20 10/23/17 10:00 Blood Pressure 154/95 10/23/17 10:00 O2 Sat by Pulse Oximetry (%) 97 10/23/17 07:00 Constitutional: Yes: No Distress, Calm Cardiovascular: Yes: Pulse Irregular, S1, S2 Respiratory: Yes: Regular, CTA Bilaterally Gastrointestinal: Yes: Normal Bowel Sounds, Soft Renal/: Yes: Correa Present Musculoskeletal: Yes: WNL Extremities: Yes: WNL Neurological: Yes: Alert, Oriented Psychiatric: Yes: Alert, Oriented Labs: CBC, BMP 10/22/17 23:43 10/22/17 23:43 Assessment/Plan 1. KIRIT 2. urinary obstruction 3. DM 4. HTN 5. a-fib 6. gout 7. constipation 8. hyperlipidemia 9. BPH 10. UTI plan will start patient on ertapenam await for final decision and plan then will decide what to do further rest as per primary team
[2017-10-23] MEDS ORDERED: PANTOPRAZOLE 40 MG TABLET (FP) PO SCH (14:45)
[2017-10-23] MEDS ORDERED: POTASSIUM CHLORIDE TABS 20 MEQ TABLET.ER (FP) PO SCH (14:45)
[2017-10-23] MEDS ORDERED: REPAGLINIDE 2 MG TABLET (FP) PO SCH (16:30)
[2017-10-23] MEDS: ERTAPENEM SODIUM 0.5 GM in SODIUM CHLORIDE 100 ML IVPB SCH (17:32)
[2017-10-23] MEDS ORDERED: PT OWN MED DRAWER 7, Y5N ONE (17:40)
[2017-10-23] MEDS: MAGNESIUM HYDROX 2400MG/30ML ORAL SUSPENSION 30 ML CUP PO SCH ×2 (17:55→21:57)
--- NOTE | 2017-10-23 18:41 | CONSULT ---
Consult Consult Specialty:: Nephrology Reason for Consultation:: ckd - History of Present Illness Chief Complaint: came back after going home to check on alarm History of Present Illness: Please see H and P from last admission. Pt went home for an hour to check on an alarm. Pt seen and examined at bedside. He is awake and alert. He denies fevers or chills. He is not sure if he want to get the cysto at this time. - History Source History Provided By: Patient, Medical Record - Past Medical History Cardio/Vascular: Yes: HTN, Hyperlipdemia Gastrointestinal: Yes: GERD Renal/: Yes: Renal Inusuff, Neurogenic Bladder Infectious Disease: Yes: Other (uti) Endocrine: Yes: Diabetes Mellitus - Alcohol/Substance Use Hx Alcohol Use: No - Smoking History Smoking history: Never smoked Have you smoked in the past 12 months: No Home Medications - Allergies Allergies/Adverse Reactions: Allergies Allergy/AdvReac Type Severity Reaction Status Date / Time ibuprofen [From Motrin] Allergy Intermediate "STOMACH Verified 10/22/17 20:15 BURST" REQUIRING SX & BLOOD TRANSFUSION. - Home Medications Home Medications: Ambulatory Orders Cod Liver Oil 1 each PO ASDIR 11/08/14 Docusate Sodium [Dulcolax Stool Softener] 50 mg PO BID 11/08/14 Finasteride [Proscar -] 40 mg PO BID 11/08/14 Folic Acid - 1 mg PO DAILY 11/08/14 Calcitriol [Rocaltrol -] 0.25 mcg PO WEEKLY 09/30/17 Diclofenac Sodium [Solaraze] 100 gm TP DAILY 09/30/17 Magnesium Hydroxide [Milk of Magnesia] 400 mg PO QID 09/30/17 Misoprostol 200 mcg PO TID 09/30/17 Nitrofurantoin Macrocrystal [Macrodantin] 100 mg PO BID 09/30/17 Pantoprazole Sodium [Protonix] 40 mg PO BID 09/30/17 Potassium Chloride [Klor-Con 10] 20 meq PO DAILY 09/30/17 Sennosides [Senna] 8.6 mg PO ONCE 09/30/17 Sodium Bicarbonate 650 mg PO TID 09/30/17 Atorvastatin Calcium 40 mg PO DAILY 10/19/17 Carvedilol [Coreg] 12.5 mg PO DAILY 10/19/17 Colchicine 0.6 mg PO DAILY 10/19/17 Esomeprazole Magnesium 1 each PO BID 10/19/17 Furosemide [Lasix] 40 mg PO BID 10/19/17 Losartan Potassium 50 mg PO DAILY 10/19/17 Pantoprazole Sodium [Protonix] 40 mg PO BID 10/19/17 Potassium Chloride [Klor-Con M20] 20 meq PO DAILY 10/19/17 Repaglinide [Prandin] 2 mg PO TID 10/19/17 Rivaroxaban [Xarelto -] 15 mg PO DAILY 10/19/17 Tamsulosin HCl [Flomax] 0.4 mg PO BID 10/19/17 Warfarin Na [Coumadin] 1 mg PO DAILY 10/19/17 Family Disease History - Family Disease History Family History: Denies Review of Systems - Review of Systems Constitutional: reports: No Symptoms Eyes: reports: No Symptoms HENT: reports: No Symptoms Neck: reports: No Symptoms Cardiovascular: reports: No Symptoms Respiratory: reports: No Symptoms Gastrointestinal: reports: No Symptoms Genitourinary: reports: Other (correa) Musculoskeletal: reports: No Symptoms Physical Exam Vital Signs: Vital Signs Temperature 97.8 F 10/23/17 17:37 Pulse Rate 62 10/23/17 17:37 Respiratory Rate 20 10/23/17 17:37 Blood Pressure 143/82 10/23/17 17:37 O2 Sat by Pulse Oximetry (%) 97 10/23/17 14:45 Constitutional: Yes: Calm Eyes: Yes: Conjunctiva Clear HENT: Yes: Atraumatic Cardiovascular: Yes: S1, S2 Respiratory: Yes: CTA Bilaterally Gastrointestinal: Yes: Soft Renal/: Yes: Correa Present Musculoskeletal: Yes: Joint Stiffness Edema: No Neurological: Yes: Oriented Psychiatric: Yes: Oriented Labs: CBC, BMP 10/22/17 23:43 10/22/17 23:43 Problem List - Problems (1) CKD (chronic kidney disease) Code(s): N18.9 - CHRONIC KIDNEY DISEASE, UNSPECIFIED (2) Urinary retention Code(s): R33.9 - RETENTION OF URINE, UNSPECIFIED (3) Complicated UTI (urinary tract infection) Code(s): N39.0 - URINARY TRACT INFECTION, SITE NOT SPECIFIED (4) Urinary catheter in place Code(s): Z92.89 - PERSONAL HISTORY OF OTHER MEDICAL TREATMENT Assessment/Plan Current Medications Generic Name Dose Route Start Last Admin Trade Name Freq PRN Reason Stop Dose Admin Allopurinol 100 mg 10/23/17 10:00 10/23/17 11:56 Zyloprim - PO 100 mg DAILY [facility] Administration Atorvastatin Calcium 40 mg 10/23/17 22:00 Lipitor - PO HS [facility] Calcitriol 0.25 mcg 10/23/17 10:00 10/23/17 14:09 Rocaltrol - PO 0.25 mcg MoWeFr@1000 [facility] Administration Carvedilol 12.5 mg 10/23/17 10:00 10/23/17 11:53 Coreg - PO 12.5 mg DAILY [facility] Administration Docusate Sodium 50 mg 10/23/17 10:00 10/23/17 11:52 Colace Liquid - PO 50 mg BID [facility] Administration Febuxostat 40 mg 10/23/17 10:00 10/23/17 11:56 Uloric - PO 40 mg DAILY [facility] Administration Finasteride 40 mg 10/23/17 13:30 Proscar - PO BID [facility] Folic Acid 1 mg 10/23/17 10:00 10/23/17 11:54 Folic Acid - PO 1 mg DAILY [facility] Administration Furosemide 40 mg 10/23/17 06:00 10/23/17 14:09 Lasix - PO 40 mg BIDLASIX [facility] Administration Heparin Sodium (Porcine) 5,000 unit 10/23/17 06:00 10/23/17 14:08 Heparin - SQ 5,000 unit TID [facility] Administration Ertapenem 0.5 gm/ Sodium 100 mls @ 200 mls/hr 10/23/17 14:45 10/23/17 17:32 Chloride IVPB Not Given DAILY [facility] Protocol Losartan Potassium 50 mg 10/23/17 10:00 10/23/17 11:53 Cozaar - PO 50 mg DAILY [facility] Administration Magnesium Hydroxide 30 ml 10/23/17 16:15 10/23/17 17:55 Milk Of Magnesia - PO 30 ml TID [facility] Administration Misoprostol 200 mcg 10/23/17 06:00 10/23/17 14:08 Cytotec - PO 200 mcg TID [facility] Administration Non-Formulary Medication 100 gm 10/23/17 13:30 Diclofenac Sodium [Solaraze] TP DAILY [facility] Pantoprazole Sodium 40 mg 10/23/17 10:00 10/23/17 11:55 Protonix - PO 40 mg BID [facility] Administration Polyethylene Glycol 17 gm 10/23/17 10:00 10/23/17 11:54 Miralax (For Daily Use) - PO Not Given DAILY [facility] Potassium Chloride 20 meq 10/23/17 10:00 10/23/17 11:54 K-Dur - PO 20 meq DAILY [facility] Administration Repaglinide 2 mg 10/23/17 16:30 10/23/17 18:35 Prandin - PO 2 mg TIDAC [facility] Administration Senna 1 tab 10/23/17 10:00 10/23/17 11:56 Senna - PO 1 tab DAILY [facility] Administration Sodium Bicarbonate 650 mg 10/23/17 06:00 10/23/17 14:10 Sodium Bicarbonate - PO 650 mg TID [facility] Administration Tamsulosin HCl 0.4 mg 10/23/17 08:30 10/23/17 11:53 Flomax - PO 0.4 mg BID@0830,2200 [facility] Administration Impression 1. KIRIT with unclear baseline 2. urinary obstruction 3. DM 4. HTN 5. a-fib 6. gout 7. constipation 8. hyperlipidemia 9. BPH 10. UTI Plan - cont abx - repeat labs in am - urology follow up - will follow
[2017-10-23] MEDS ORDERED: ACETAMINOPHEN 325 MG TABLET (FP) PO ONE ×2 (21:45→23:32)
[2017-10-23] MEDS: ATORVASTATIN CA 40 MG TABLET (FP) PO SCH (21:57)
[2017-10-23] MEDS ORDERED: LIDOCAINE HCL 5% TOP OINTMENT 50 GM TUBE TP ONE (22:00)
--- NOTE | 2017-10-24 05:40 | PN ---
Physical Exam: SUBJECTIVE: Patient seen and examined at bedside. NPO since med night for cystoscopy today. ot is asking for foos and refusing any procedure, urologist was paged , pt will follow as out patient . denies any fever, chills, N/V/D. Correa cath in place with clear urine. OBJECTIVE: Vital Signs Period Temp Pulse Resp BP Sys/Stewart Pulse Ox Last 24 Hr 97.4 F-98.1 F 53-78 16-20 131-174/76-97 96-100 GENERAL: Awake, alert, and fully oriented, in no acute distress. HEAD: Normal with no signs of trauma. EARS, NOSE, THROAT: Ears normal, nares patent, oropharynx clear without exudates. Moist mucous membranes. NECK: Normal range of motion, supple without lymphadenopathy, JVD, or masses. LUNGS: Breath sounds equal, clear to auscultation bilaterally. No wheezes, and no crackles. No accessory muscle use. HEART: irreregular s1s2 normal ABDOMEN: Soft, nontender, not distended, normoactive bowel sounds, no guarding, no rebound, no masses. midline scar present, incision hernia. UPPER EXTREMITIES: 2+ pulses, warm, well-perfuse. LOWER EXTREMITIES: warm, No calf tenderness. No peripheral edema. PSYCHIATRIC: Cooperative. SKIN: Warm, dry, Laboratory Results - last 24 hr 10/23/17 10/23/17 10/23/17 12:24 17:33 22:35 POC Glucometer [id number] 212 190 Active Medications Generic Name Dose Route Start Last Admin Trade Name Freq PRN Reason Stop Dose Admin Allopurinol 100 mg 10/23/17 10:10/23/17 11:56 Zyloprim - PO 100 mg DAILY [facility] Administration Atorvastatin Calcium 40 mg 10/23/17 22:00 10/23/17 21:57 Lipitor - PO 40 mg HS [facility] Administration Calcitriol 0.25 mcg 10/23/17 10:10/23/17 14:09 Rocaltrol - PO 0.25 mcg MoWeFr@1000 [facility] Administration Carvedilol 12.5 mg 10/23/17 10:10/23/17 11:53 Coreg - PO 12.5 mg DAILY [facility] Administration Docusate Sodium 50 mg 10/23/17 10:10/23/17 21:57 Colace Liquid - PO Not Given BID [facility] Febuxostat 40 mg 10/23/17 10:00 10/23/17 11:56 Uloric - PO 40 mg DAILY [facility] Administration Finasteride 40 mg 10/23/17 13:30 Proscar - PO BID [facility] Folic Acid 1 mg 10/23/17 10:00 10/23/17 11:54 Folic Acid - PO 1 mg DAILY [facility] Administration Furosemide 40 mg 10/23/17 06:00 10/23/17 14:09 Lasix - PO 40 mg BIDLASIX [facility] Administration Heparin Sodium (Porcine) 5,000 unit 10/23/17 06:00 10/23/17 21:57 Heparin - SQ 5,000 unit TID [facility] Administration Ertapenem 0.5 gm/ Sodium 100 mls @ 200 mls/hr 10/23/17 14:45 10/23/17 17:32 Chloride IVPB Not Given DAILY [facility] Protocol Losartan Potassium 50 mg 10/23/17 10:00 10/23/17 11:53 Cozaar - PO 50 mg DAILY [facility] Administration Magnesium Hydroxide 30 ml 10/23/17 16:15 10/23/17 21:57 Milk Of Magnesia - PO Not Given TID [facility] Misoprostol 200 mcg 10/23/17 06:00 10/23/17 21:56 Cytotec - PO 200 mcg TID [facility] Administration Non-Formulary Medication 100 gm 10/23/17 13:30 Diclofenac Sodium [Solaraze] TP DAILY [facility] Pantoprazole Sodium 40 mg 10/23/17 10:00 10/23/17 21:57 Protonix - PO 40 mg BID [facility] Administration Polyethylene Glycol 17 gm 10/23/17 10:00 10/23/17 11:54 Miralax (For Daily Use) - PO Not Given DAILY [facility] Potassium Chloride 20 meq 10/23/17 10:00 10/23/17 11:54 K-Dur - PO 20 meq DAILY [facility] Administration Repaglinide 2 mg 10/23/17 16:30 10/23/17 18:35 Prandin - PO 2 mg TIDAC [facility] Administration Senna 1 tab 10/23/17 10:00 10/23/17 11:56 Senna - PO 1 tab DAILY [facility] Administration Sodium Bicarbonate 650 mg 10/23/17 06:00 10/23/17 21:57 Sodium Bicarbonate - PO 650 mg TID [facility] Administration Tamsulosin HCl 0.4 mg 10/23/17 08:30 10/23/17 21:57 Flomax - PO 0.4 mg BID@0830,2200 [facility] Administration CBC, BMP 10/24/17 06:30 10/24/17 06:30 ASSESSMENT/PLAN: Patient is a 70 M with pmhx. of HTN, HLD, DM, GERD, AFib, CAD, BPH, Neurogenic bladder, GI bleed, Chronic UTIs who presents to ED with complaint of urinary retention for approximately 1 day, being admitted for ESBL E-coli UTI and KIRIT. Pt left hospital AMA this afternoon and is back to continue his workup. #UTI * h/o ESBL and indwelling correa * urine cx pending * Cont. ertapenem IV day 6, more 9 days total 14 * ID on board * monitor i/o #BPH * pt refused cystoscopy with Dr. Shukla * spoke with over the phone will f/u with him as out pt for urodynamic study and cystoscopy #KIRIT on CKD * cont. to hold nephrotoxic medications: colchicine #Afib * rate controlled * On Eliquis , hold for procedure, continue today as procedure cancelled #DM * BGM * ISS * hold home meds #GERD * Protonix 40 mg po daily home meds #Constipation * miralax * senna * colace * milk of magnesia #FEN * not on fluids * lytes wnl * low sodium diabetic diet #PPx * continue eliquis 2.5 BID #Dispo * admit to med-surg * DC when KIRIT improved * tunnel cath uppon Dc and IV antibiotics in infusion center Visit type - Emergency Visit Emergency Visit: Yes ED Registration Date: 10/23/17 Care time: The patient presented to the Emergency Department on the above date and was hospitalized for further evaluation of their emergent condition. - New Patient This patient is new to me today: Yes Date on this admission: 10/24/17 - Critical Care Critical Care patient: No - Discharge Referral Referred to [facility] Med [facility] No
[2017-10-24] MEDS: FUROSEMIDE 40 MG TABLET (FP) PO SCH ×2 (06:28→13:25)
[2017-10-24] MEDS: HEPARIN NA (PORCINE) 5,000 UNITS/ML 1ML VIAL SQ SCH ×3 (06:28→21:51)
[2017-10-24] MEDS: MISOPROSTOL 200 MCG TABLET PO SCH ×3 (06:28→21:55)
[2017-10-24] MEDS: SODIUM BICARBONATE 650 MG TABLET PO SCH ×3 (06:29→21:52)
[2017-10-24] MEDS: MAGNESIUM HYDROX 2400MG/30ML ORAL SUSPENSION 30 ML CUP PO SCH ×2 (06:29→13:25)
[2017-10-24] MEDS: REPAGLINIDE 1 MG TABLET PO SCH ×3 (06:30→17:39)
[2017-10-24] MEDS ORDERED: ACETAMINOPHEN 325 MG TABLET (FP) PO PRN (06:53)
[2017-10-24 07:50] LABS: INR 1.35 (0.82-1.09); PROTHROMBIN TIME (PATIENT) 15.2 SEC (9.98-11.88)
[2017-10-24 07:53] LABS: ACTIVATED PTT 32.1 SECONDS (26.9-34.4)
[2017-10-24 07:58] LABS: BASO % 0.8 % (0-2.0); EOS % 1.7 % (0-4.5); HEMATOCRIT 32.4 % (35.4-49); HEMOGLOBIN 10.3 GM/dL (11.7-16.9); LYMPH % 10.6 % (8-40); MCH 26.7 pg (25.7-33.7); MCHC 31.9 g/dl (32.0-35.9); MEAN CELL VOLUME 83.8 fl (80-96); MEAN PLT VOLUME 9.6 fl (7.5-11.1); MONO % 11.1 % (3.8-10.2); NEUT % 75.8 % (42.8-82.8); PLATELET COUNT 284 K/MM3 (134-434); RBC 3.86 M/mm3 (4.00-5.60); RDW 17.4 % (11.9-15.9); WHITE BLOOD COUNT 6.9 K/mm3 (4.0-10.0)
[2017-10-24 08:15] LABS: CHLORIDE 102 mmol/L (98-107); POTASSIUM 4.4 mmol/L (3.5-5.1); SODIUM 136 mmol/L (136-145)
--- NOTE | 2017-10-24 08:16 | PN ---
Progress Note (short form) - Note Progress Note: UROLOGY NOTE. pt. readmitted after leaving ama.h/o rec. urinary retention poss. bph or neurogenic pt. will need gu w/u when med. ok
[2017-10-24 08:25] LABS: ALBUMIN 3.4 g/dl (3.4-5.0); ALK PHOS 105 U/L (45-117); ANION GAP 10 (8-16); BILIRUBIN,TOTAL 0.4 mg/dL (0.2-1.0); BLOOD UREA NITROGEN 54 mg/dL (7-18); CALCIUM 8.8 mg/dL (8.5-10.1); CO2 24 mmol/L (21-32); CREATININE 2.3 mg/dL (0.7-1.3); GLUCOSE,RANDOM 180 mg/dL (74-106); MAGNESIUM 2.2 mg/dL (1.8-2.4); PHOSPHOROUS 3.9 mg/dL (2.5-4.9); SGOT/AST 12 U/L (15-37); SGPT/ALT 15 U/L (12-78); TOT PROT 7.6 g/dl (6.4-8.2)
--- NOTE | 2017-10-24 08:42 | CONS ---
DATE OF CONSULTATION: DATE OF DICTATION: 10/24/2017 HISTORY OF PRESENT ILLNESS: Patient is a 72-year-old male who was seen last week and signed out AMA. He presents to the emergency room in acute urinary retention. Patient was found to have a positive urine culture growing out ESBL. He also has history of high blood pressure, dyslipidemia, diabetes, GERD, atrial fibrillation, coronary artery disease, benign prostatic hypertrophy, neurogenic bladder, chronic recurrent urinary tract infections. He was readmitted via the emergency room. Barnett catheter was patent and clear. His urine C&S is ESBL. A repeat C&S was performed. The patient was restarted on ertapenem. A workup previously revealed normal upper tracts, and his latest laboratory revealed a white count of 7.9. BUN was 55 and creatinine 2.4. A random glucose was 251. ASSESSMENT: Patient with history of recurrent retention. PLAN: We will recommend cystoscopy, urodynamic evaluation to assess whether the recurrent retention is secondary to BPH or is neurogenic in nature secondary to diabetes. We will follow with you. Tony [id number]
[2017-10-24] MEDS ORDERED: PT OWN MED DRAWER 7, Y5N ONE ×5 (09:41→20:45)
[2017-10-24] MEDS: ERTAPENEM SODIUM 0.5 GM in SODIUM CHLORIDE 100 ML IVPB SCH (09:47)
[2017-10-24] MEDS: POTASSIUM CHLORIDE TABS 20 MEQ TABLET.ER (FP) PO SCH (09:50)
[2017-10-24] MEDS: TAMSULOSIN HCL 0.4 MG CAP.ER.24H (FP) PO SCH ×2 (09:50→21:54)
[2017-10-24] MEDS: ALLOPURINOL 100 MG TABLET (FP) PO SCH (09:50)
[2017-10-24] MEDS: SENNOSIDES 8.6MG TABLET (FP) PO SCH (09:50)
[2017-10-24] MEDS: LOSARTAN POTASSIUM 50 MG TABLET (FP) PO SCH (09:50)
[2017-10-24] MEDS: FOLIC ACID 1 MG TABLET (FP) PO SCH (09:50)
[2017-10-24] MEDS: PANTOPRAZOLE 40 MG TABLET (FP) PO SCH ×2 (09:50→21:52)
[2017-10-24] MEDS: CARVEDILOL 12.5 MG TABLET (FP) PO SCH (09:50)
[2017-10-24] MEDS: LIDOCAINE HCL 5% TOP OINTMENT 50 GM TUBE TP SCH ×2 (09:52→21:51)
[2017-10-24] MEDS: DOCUSATE NA 100 MG/10 ML UNIT-DOSE CUPS PO SCH ×2 (09:59→21:53)
[2017-10-24] MEDS: POLYETHYLENE GLYCOL 3350 119 GM BTL PO SCH (10:00)
[2017-10-24] MEDS: FEBUXOSTAT 40 MG TAB PO SCH (11:36)
--- NOTE | 2017-10-24 14:24 | PN ---
Progress Note, Physician History of Present Illness: doing well no complaints refused surgery - Current Medication List Current Medications: Active Medications Acetaminophen (Tylenol -) 325 mg PO Q6H PRN PRN Reason: PAIN Allopurinol (Zyloprim -) 100 mg PO DAILY [facility] Last Admin: 10/24/17 09:50 Dose: 100 mg Atorvastatin Calcium (Lipitor -) 40 mg PO HS [facility] Last Admin: 10/23/17 21:57 Dose: 40 mg Calcitriol (Rocaltrol -) 0.25 mcg PO MoWeFr@1000 [facility] Last Admin: 10/23/17 14:09 Dose: 0.25 mcg Carvedilol (Coreg -) 12.5 mg PO DAILY [facility] Last Admin: 10/24/17 09:50 Dose: 12.5 mg Docusate Sodium (Colace Liquid -) 50 mg PO BID [facility] Last Admin: 10/24/17 09:59 Dose: Not Given Febuxostat (Uloric -) 40 mg PO DAILY [facility] Last Admin: 10/24/17 11:36 Dose: 40 mg Finasteride (Proscar -) 40 mg PO BID [facility] Folic Acid (Folic Acid -) 1 mg PO DAILY [facility] Last Admin: 10/24/17 09:50 Dose: 1 mg Furosemide (Lasix -) 40 mg PO BIDLASIX [facility] Last Admin: 10/24/17 13:25 Dose: 40 mg Heparin Sodium (Porcine) (Heparin -) 5,000 unit SQ TID [facility] Last Admin: 10/24/17 13:25 Dose: 5,000 unit Ertapenem 0.5 gm/ Sodium (Chloride) 100 mls @ 200 mls/hr IVPB DAILY [facility] PRN Reason: Protocol Last Admin: 10/24/17 09:47 Dose: 200 mls/hr Lidocaine HCl (Xylocaine 5% Top. Ointment) 1 applic TP BID [facility] Last Admin: 10/24/17 09:52 Dose: 1 applic Losartan Potassium (Cozaar -) 50 mg PO DAILY [facility] Last Admin: 10/24/17 09:50 Dose: 50 mg Magnesium Hydroxide (Milk Of Magnesia -) 30 ml PO TID [facility] Last Admin: 10/24/17 13:25 Dose: 30 ml Misoprostol (Cytotec -) 200 mcg PO TID [facility] Last Admin: 10/24/17 13:25 Dose: 200 mcg Pantoprazole Sodium (Protonix -) 40 mg PO BID [facility] Last Admin: 10/24/17 09:50 Dose: 40 mg Polyethylene Glycol (Miralax (For Daily Use) -) 17 gm PO DAILY [facility] Last Admin: 10/24/17 10:00 Dose: Not Given Potassium Chloride (K-Dur -) 20 meq PO DAILY [facility] Last Admin: 10/24/17 09:50 Dose: 20 meq Repaglinide (Prandin -) 2 mg PO TIDAC [facility] Last Admin: 10/24/17 11:36 Dose: 2 mg Senna (Senna -) 1 tab PO DAILY [facility] Last Admin: 10/24/17 09:50 Dose: 1 tab Sodium Bicarbonate (Sodium Bicarbonate -) 650 mg PO TID [facility] Last Admin: 10/24/17 13:25 Dose: 650 mg Tamsulosin HCl (Flomax -) 0.4 mg PO BID@0830,2200 [facility] Last Admin: 10/24/17 09:50 Dose: 0.4 mg - Objective Vital Signs: Vital Signs Temperature 98.1 F 10/24/17 06:32 Pulse Rate 58 L 10/24/17 06:32 Respiratory Rate 20 10/24/17 06:32 Blood Pressure 149/72 10/24/17 06:32 O2 Sat by Pulse Oximetry (%) 96 10/23/17 21:00 Constitutional: Yes: No Distress, Calm Cardiovascular: Yes: Regular Rate and Rhythm Respiratory: Yes: Regular, CTA Bilaterally Gastrointestinal: Yes: Normal Bowel Sounds, Soft Genitourinary: Yes: Barnett Present Musculoskeletal: Yes: WNL Extremities: Yes: WNL Neurological: Yes: Alert, Oriented Psychiatric: Yes: Alert, Oriented Labs: CBC, BMP 10/24/17 06:30 10/24/17 06:30 INR, PTT INR 1.35 (0.82-1.09) H 10/24/17 06:30 Assessment/Plan 1. KIRIT 2. urinary obstruction 3. DM 4. HTN 5. a-fib 6. gout 7. constipation 8. hyperlipidemia 9. BPH 10. UTI plan continue ertapenam patient will need 9 more days of ertapenam
[2017-10-24] MEDS ORDERED: PICC LINE 8 ML FLUSH PROTOCOL IVPUSH PRN (15:21)
--- NOTE | 2017-10-24 15:35 | PN ---
Teaching Attending Note Name of Resident: Ayan Hodge ATTENDING PHYSICIAN STATEMENT I saw and evaluated the patient. I reviewed the resident's note and discussed the case with the resident. I agree with the resident's findings and plan as documented. SUBJECTIVE: Patient is comfortable with no acute distress. patient has foly catheter. refusing to have any procedure by urology at this time. OBJECTIVE: Vital Signs Temperature 98.4 F 10/24/17 14:54 Pulse Rate 70 10/24/17 14:54 Respiratory Rate 16 10/24/17 14:54 Blood Pressure 123/82 10/24/17 14:54 O2 Sat by Pulse Oximetry (%) 96 10/24/17 09:00 CBCD WBC 6.9 K/mm3 (4.0-10.0) 10/24/17 06:30 RBC 3.86 M/mm3 (4.00-5.60) L 10/24/17 06:30 Hgb 10.3 GM/dL (11.7-16.9) L 10/24/17 06:30 Hct 32.4 % (35.4-49) L 10/24/17 06:30 MCV 83.8 fl (80-96) 10/24/17 06:30 MCHC 31.9 g/dl (32.0-35.9) L 10/24/17 06:30 RDW 17.4 % (11.9-15.9) H 10/24/17 06:30 Plt Count 284 K/MM3 (134-434) 10/24/17 06:30 MPV 9.6 fl (7.5-11.1) 10/24/17 06:30 CMP Sodium 136 mmol/L (136-145) 10/24/17 06:30 Potassium 4.4 mmol/L (3.5-5.1) 10/24/17 06:30 Chloride 102 mmol/L (98-107) 10/24/17 06:30 Carbon Dioxide 24 mmol/L (21-32) 10/24/17 06:30 Anion Gap 10 (8-16) 10/24/17 06:30 BUN 54 mg/dL (7-18) H 10/24/17 06:30 Creatinine 2.3 mg/dL (0.7-1.3) H 10/24/17 06:30 Creat Clearance w eGFR 28.01 (>60) 10/24/17 06:30 Random Glucose 180 mg/dL (74-106) H D 10/24/17 06:30 Calcium 8.8 mg/dL (8.5-10.1) 10/24/17 06:30 Total Bilirubin 0.4 mg/dL (0.2-1.0) D 10/24/17 06:30 AST 12 U/L (15-37) L D 10/24/17 06:30 ALT 15 U/L (12-78) 10/24/17 06:30 Alkaline Phosphatase 105 U/L (45-117) 10/24/17 06:30 Total Protein 7.6 g/dl (6.4-8.2) 10/24/17 06:30 Albumin 3.4 g/dl (3.4-5.0) 10/24/17 06:30 Current Medications Generic Name Dose Route Start Last Admin Trade Name Freq PRN Reason Stop Dose Admin Acetaminophen 325 mg 10/24/17 06:53 Tylenol - PO Q6H PRN PAIN Allopurinol 100 mg 10/23/17 10:00 10/24/17 09:50 Zyloprim - PO 100 mg DAILY [facility] Administration Atorvastatin Calcium 40 mg 10/23/17 22:00 10/23/17 21:57 Lipitor - PO 40 mg HS [facility] Administration Calcitriol 0.25 mcg 10/23/17 10:00 10/23/17 14:09 Rocaltrol - PO 0.25 mcg MoWeFr@1000 [facility] Administration Carvedilol 12.5 mg 10/23/17 10:00 10/24/17 09:50 Coreg - PO 12.5 mg DAILY [facility] Administration Docusate Sodium 50 mg 10/23/17 10:00 10/24/17 09:59 Colace Liquid - PO Not Given BID [facility] Febuxostat 40 mg 10/23/17 10:00 10/24/17 11:36 Uloric - PO 40 mg DAILY [facility] Administration Finasteride 40 mg 10/23/17 13:30 Proscar - PO BID [facility] Folic Acid 1 mg 10/23/17 10:00 10/24/17 09:50 Folic Acid - PO 1 mg DAILY [facility] Administration Furosemide 40 mg 10/23/17 06:00 10/24/17 13:25 Lasix - PO 40 mg BIDLASIX [facility] Administration Heparin Sodium (Porcine) 5,000 unit 10/23/17 06:00 10/24/17 13:25 Heparin - SQ 5,000 unit TID [facility] Administration IV Flush 8 ml 10/24/17 15:21 Picc Line Flush IVPUSH PRN PRN Protocol Ertapenem 0.5 gm/ Sodium 100 mls @ 200 mls/hr 10/23/17 14:45 10/24/17 09:47 Chloride IVPB 200 mls/hr DAILY [facility] Administration Protocol Lidocaine HCl 1 applic 10/24/17 10:00 10/24/17 09:52 Xylocaine 5% Top. Ointment TP 1 applic BID [facility] Administration Losartan Potassium 50 mg 10/23/17 10:00 10/24/17 09:50 Cozaar - PO 50 mg DAILY [facility] Administration Misoprostol 200 mcg 10/23/17 06:00 10/24/17 13:25 Cytotec - PO 200 mcg TID [facility] Administration Pantoprazole Sodium 40 mg 10/23/17 10:00 10/24/17 09:50 Protonix - PO 40 mg BID [facility] Administration Polyethylene Glycol 17 gm 10/23/17 10:00 10/24/17 10:00 Miralax (For Daily Use) - PO Not Given DAILY [facility] Repaglinide 2 mg 10/24/17 07:00 10/24/17 11:36 Prandin - PO 2 mg TIDAC [facility] Administration Senna 1 tab 10/23/17 10:00 10/24/17 09:50 Senna - PO 1 tab DAILY [facility] Administration Sodium Bicarbonate 650 mg 10/23/17 06:00 10/24/17 13:25 Sodium Bicarbonate - PO 650 mg TID [facility] Administration Tamsulosin HCl 0.4 mg 10/23/17 08:30 10/24/17 09:50 Flomax - PO 0.4 mg BID@0830,2200 [facility] Administration PE: comfortable with no acute distress : positive for Barnett ASSESSMENT AND PLAN: Patient is a 70 M with pmhx. of HTN, HLD, DM, GERD, AFib, CAD, BPH, Neurogenic bladder, GI bleed, Chronic UTIs who presents to ED with complaint of urinary retention for approximately 1 day, being admitted for ESBL E-coli UTI and KIRIT. Pt left hospital AMA and came back to continue his workup. # aCUTE UTI WITH ESBL CONTINUE IV antibiotic for 9 more days of ertapenam renally dosed to 0.5gm daily as per ID patient is going for [place] catheter in am to continue IV antibiotic infusion in the infusion center for total of 9 more days. Repeat labs in a week period. # BPH, cystoscopy and further w/u as an outpatient since patient is refusing but will follow with Dr. Shukla #KIRIT on CKD further w/u by as an outpatient . continue to avoid nephrotoxic medications #Afib rate controlled on Eliquis now #DM sliding scale with coverage #GERD continue Protonix #Constipation, continue miralax, senna,colace #DVT Px: Eliquis
--- NOTE | 2017-10-24 15:47 | PN ---
Progress Note, Physician History of Present Illness: Pt seen and examined at bedside. He does not want cysto. - Current Medication List Current Medications: Active Medications Acetaminophen (Tylenol -) 325 mg PO Q6H PRN PRN Reason: PAIN Allopurinol (Zyloprim -) 100 mg PO DAILY [facility] Last Admin: 10/24/17 09:50 Dose: 100 mg Atorvastatin Calcium (Lipitor -) 40 mg PO HS [facility] Last Admin: 10/23/17 21:57 Dose: 40 mg Calcitriol (Rocaltrol -) 0.25 mcg PO MoWeFr@1000 [facility] Last Admin: 10/23/17 14:09 Dose: 0.25 mcg Carvedilol (Coreg -) 12.5 mg PO DAILY [facility] Last Admin: 10/24/17 09:50 Dose: 12.5 mg Docusate Sodium (Colace Liquid -) 50 mg PO BID [facility] Last Admin: 10/24/17 09:59 Dose: Not Given Febuxostat (Uloric -) 40 mg PO DAILY [facility] Last Admin: 10/24/17 11:36 Dose: 40 mg Finasteride (Proscar -) 40 mg PO BID [facility] Folic Acid (Folic Acid -) 1 mg PO DAILY [facility] Last Admin: 10/24/17 09:50 Dose: 1 mg Furosemide (Lasix -) 40 mg PO BIDLASIX [facility] Last Admin: 10/24/17 13:25 Dose: 40 mg Heparin Sodium (Porcine) (Heparin -) 5,000 unit SQ TID [facility] Last Admin: 10/24/17 13:25 Dose: 5,000 unit IV Flush (Picc Line Flush) 8 ml IVPUSH PRN PRN PRN Reason: Protocol Ertapenem 0.5 gm/ Sodium (Chloride) 100 mls @ 200 mls/hr IVPB DAILY [facility] PRN Reason: Protocol Last Admin: 10/24/17 09:47 Dose: 200 mls/hr Lidocaine HCl (Xylocaine 5% Top. Ointment) 1 applic TP BID [facility] Last Admin: 10/24/17 09:52 Dose: 1 applic Losartan Potassium (Cozaar -) 50 mg PO DAILY [facility] Last Admin: 10/24/17 09:50 Dose: 50 mg Misoprostol (Cytotec -) 200 mcg PO TID [facility] Last Admin: 10/24/17 13:25 Dose: 200 mcg Pantoprazole Sodium (Protonix -) 40 mg PO BID [facility] Last Admin: 10/24/17 09:50 Dose: 40 mg Polyethylene Glycol (Miralax (For Daily Use) -) 17 gm PO DAILY [facility] Last Admin: 10/24/17 10:00 Dose: Not Given Repaglinide (Prandin -) 2 mg PO TIDAC [facility] Last Admin: 10/24/17 11:36 Dose: 2 mg Senna (Senna -) 1 tab PO DAILY [facility] Last Admin: 10/24/17 09:50 Dose: 1 tab Sodium Bicarbonate (Sodium Bicarbonate -) 650 mg PO TID [facility] Last Admin: 10/24/17 13:25 Dose: 650 mg Tamsulosin HCl (Flomax -) 0.4 mg PO BID@0830,2200 [facility] Last Admin: 10/24/17 09:50 Dose: 0.4 mg - Objective Vital Signs: Vital Signs Temperature 98.4 F 10/24/17 14:54 Pulse Rate 70 10/24/17 14:54 Respiratory Rate 16 10/24/17 14:54 Blood Pressure 123/82 10/24/17 14:54 O2 Sat by Pulse Oximetry (%) 96 10/24/17 09:00 Constitutional: Yes: Calm Eyes: Yes: Conjunctiva Clear HENT: Yes: Atraumatic Neck: Yes: Supple Cardiovascular: Yes: S1, S2 Respiratory: Yes: CTA Bilaterally Gastrointestinal: Yes: Normal Bowel Sounds, Soft Genitourinary: Yes: Barnett Present Edema: No Neurological: Yes: Oriented Psychiatric: Yes: Oriented Labs: CBC, BMP 10/24/17 06:30 10/24/17 06:30 INR, PTT INR 1.35 (0.82-1.09) H 10/24/17 06:30 Problem List - Problems (1) CKD (chronic kidney disease) Code(s): N18.9 - CHRONIC KIDNEY DISEASE, UNSPECIFIED (2) Urinary retention Code(s): R33.9 - RETENTION OF URINE, UNSPECIFIED (3) Complicated UTI (urinary tract infection) Code(s): N39.0 - URINARY TRACT INFECTION, SITE NOT SPECIFIED (4) Urinary catheter in place Code(s): Z92.89 - PERSONAL HISTORY OF OTHER MEDICAL TREATMENT Assessment/Plan Current Medications Generic Name Dose Route Start Last Admin Trade Name Freq PRN Reason Stop Dose Admin Acetaminophen 325 mg 10/24/17 06:53 Tylenol - PO Q6H PRN PAIN Allopurinol 100 mg 10/23/17 10:00 10/24/17 09:50 Zyloprim - PO 100 mg DAILY [facility] Administration Atorvastatin Calcium 40 mg 10/23/17 22:00 10/23/17 21:57 Lipitor - PO 40 mg HS [facility] Administration Calcitriol 0.25 mcg 10/23/17 10:00 10/23/17 14:09 Rocaltrol - PO 0.25 mcg MoWeFr@1000 [facility] Administration Carvedilol 12.5 mg 10/23/17 10:00 10/24/17 09:50 Coreg - PO 12.5 mg DAILY [facility] Administration Docusate Sodium 50 mg 10/23/17 10:00 10/24/17 09:59 Colace Liquid - PO Not Given BID [facility] Febuxostat 40 mg 10/23/17 10:00 10/24/17 11:36 Uloric - PO 40 mg DAILY [facility] Administration Finasteride 40 mg 10/23/17 13:30 Proscar - PO BID [facility] Folic Acid 1 mg 10/23/17 10:00 10/24/17 09:50 Folic Acid - PO 1 mg DAILY [facility] Administration Furosemide 40 mg 10/23/17 06:00 10/24/17 13:25 Lasix - PO 40 mg BIDLASIX [facility] Administration Heparin Sodium (Porcine) 5,000 unit 10/23/17 06:00 10/24/17 13:25 Heparin - SQ 5,000 unit TID [facility] Administration IV Flush 8 ml 10/24/17 15:21 Picc Line Flush IVPUSH PRN PRN Protocol Ertapenem 0.5 gm/ Sodium 100 mls @ 200 mls/hr 10/23/17 14:45 10/24/17 09:47 Chloride IVPB 200 mls/hr DAILY [facility] Administration Protocol Lidocaine HCl 1 applic 10/24/17 10:00 10/24/17 09:52 Xylocaine 5% Top. Ointment TP 1 applic BID [facility] Administration Losartan Potassium 50 mg 10/23/17 10:00 10/24/17 09:50 Cozaar - PO 50 mg DAILY [facility] Administration Misoprostol 200 mcg 10/23/17 06:00 10/24/17 13:25 Cytotec - PO 200 mcg TID [facility] Administration Pantoprazole Sodium 40 mg 10/23/17 10:00 10/24/17 09:50 Protonix - PO 40 mg BID [facility] Administration Polyethylene Glycol 17 gm 10/23/17 10:00 10/24/17 10:00 Miralax (For Daily Use) - PO Not Given DAILY [facility] Repaglinide 2 mg 10/24/17 07:00 10/24/17 11:36 Prandin - PO 2 mg TIDAC [facility] Administration Senna 1 tab 10/23/17 10:00 10/24/17 09:50 Senna - PO 1 tab DAILY [facility] Administration Sodium Bicarbonate 650 mg 10/23/17 06:00 10/24/17 13:25 Sodium Bicarbonate - PO 650 mg TID [facility] Administration Tamsulosin HCl 0.4 mg 10/23/17 08:30 10/24/17 09:50 Flomax - PO 0.4 mg BID@0830,2200 [facility] Administration Impression 1. KIRIT with unclear baseline 2. urinary obstruction 3. DM 4. HTN 5. a-fib 6. gout 7. constipation 8. hyperlipidemia 9. BPH 10. UTI Plan - discussed management with pt - getting pic like for abx - will follow with urology as outpt - will need outpt renal workup - can stop thiazide - will follow
[2017-10-24] MEDS: POTASSIUM CHLORIDE TABS 10 MEQ TABLET.ER (FP) PO SCH (17:39)
[2017-10-24] MEDS: FINASTERIDE 5 MG TABLET (FP) PO SCH (21:52)
[2017-10-24] MEDS: ATORVASTATIN CA 40 MG TABLET (FP) PO SCH (21:53)
[2017-10-25] MEDS: MISOPROSTOL 200 MCG TABLET PO SCH ×2 (06:37→13:45)
[2017-10-25] MEDS: FUROSEMIDE 40 MG TABLET (FP) PO SCH ×2 (06:38→13:45)
[2017-10-25] MEDS: SODIUM BICARBONATE 650 MG TABLET PO SCH ×2 (06:39→13:45)
[2017-10-25] MEDS: REPAGLINIDE 1 MG TABLET PO SCH ×2 (06:39→12:09)
[2017-10-25] MEDS: HEPARIN NA (PORCINE) 5,000 UNITS/ML 1ML VIAL SQ SCH ×2 (06:39→13:45)
[2017-10-25] MEDS ORDERED: MAGNESIUM HYDROX 2400MG/30ML ORAL SUSPENSION 30 ML CUP PO PRN (07:22)
[2017-10-25] MEDS ORDERED: PORTA CATH FLUSH 10 ML IVPUSH PRN (07:24)
[2017-10-25] MEDS: FINASTERIDE 5 MG TABLET (FP) PO SCH ×2 (07:34→12:07)
[2017-10-25 08:43] LABS: HEMATOCRIT 31.4 % (35.4-49); MCH 26.7 pg (25.7-33.7); MCHC 31.9 g/dl (32.0-35.9); MEAN CELL VOLUME 83.6 fl (80-96); MEAN PLT VOLUME 8.9 fl (7.5-11.1); PLATELET COUNT 272 K/MM3 (134-434); RBC 3.75 M/mm3 (4.00-5.60); RDW 17.6 % (11.9-15.9)
[2017-10-25 09:26] LABS: ALBUMIN 3.3 g/dl (3.4-5.0); ALK PHOS 98 U/L (45-117); ANION GAP 11 (8-16); BILIRUBIN,TOTAL 0.3 mg/dL (0.2-1.0); BLOOD UREA NITROGEN 53 mg/dL (7-18); CALCIUM 8.8 mg/dL (8.5-10.1); CHLORIDE 103 mmol/L (98-107); CO2 24 mmol/L (21-32); CREATININE 2.1 mg/dL (0.7-1.3); GLUCOSE,RANDOM 248 mg/dL (74-106); POTASSIUM 4.3 mmol/L (3.5-5.1); SGOT/AST 9 U/L (15-37); SGPT/ALT 15 U/L (12-78); SODIUM 138 mmol/L (136-145); TOT PROT 7.3 g/dl (6.4-8.2)
--- NOTE | 2017-10-25 10:28 | PN ---
Progress Note (short form) - Note Progress Note: UROLOGY NOTE. pt. with correa, refuses any gu intervention at present ,uti with esbl,bun/creat. 50/2.3. will f/u in op.
[2017-10-25] MEDS ORDERED: INSULIN SLIDING SCALE (NOVOLOG) 1 VIAL SQ SCH (11:00)
[2017-10-25] MEDS ORDERED: PT OWN MED DRAWER 7, Y5N ONE ×2 (12:00→13:36)
[2017-10-25] MEDS: POLYETHYLENE GLYCOL 3350 119 GM BTL PO SCH (12:06)
[2017-10-25] MEDS: TAMSULOSIN HCL 0.4 MG CAP.ER.24H (FP) PO SCH (12:07)
[2017-10-25] MEDS: POTASSIUM CHLORIDE TABS 10 MEQ TABLET.ER (FP) PO SCH (12:07)
[2017-10-25] MEDS: LOSARTAN POTASSIUM 50 MG TABLET (FP) PO SCH (12:07)
[2017-10-25] MEDS: ALLOPURINOL 100 MG TABLET (FP) PO SCH (12:07)
[2017-10-25] MEDS: PANTOPRAZOLE 40 MG TABLET (FP) PO SCH (12:07)
[2017-10-25] MEDS: CARVEDILOL 12.5 MG TABLET (FP) PO SCH (12:07)
[2017-10-25] MEDS: CALCITRIOL 0.25 MCG CAPSULE (FP) PO SCH (12:07)
[2017-10-25] MEDS: SENNOSIDES 8.6MG TABLET (FP) PO SCH (12:07)
[2017-10-25] MEDS: FOLIC ACID 1 MG TABLET (FP) PO SCH (12:07)
[2017-10-25] MEDS: DOCUSATE NA 100 MG/10 ML UNIT-DOSE CUPS PO SCH (12:08)
[2017-10-25] MEDS: LIDOCAINE HCL 5% TOP OINTMENT 50 GM TUBE TP SCH (12:08)
[2017-10-25] MEDS: FEBUXOSTAT 40 MG TAB PO SCH (12:08)
[2017-10-25] MEDS: ERTAPENEM SODIUM 0.5 GM in SODIUM CHLORIDE 100 ML IVPB SCH (12:09)
[2017-10-25 13:34] VITALS: BP 130/78; PULSE 84; TEMP 97.4
--- NOTE | 2017-10-25 14:24 | PN ---
Progress Note, Physician History of Present Illness: stable no issues gu note noted patients refusing intervention - Current Medication List Current Medications: Active Medications Acetaminophen (Tylenol -) 325 mg PO Q6H PRN PRN Reason: PAIN Allopurinol (Zyloprim -) 100 mg PO DAILY [facility] Last Admin: 10/25/17 12:07 Dose: 100 mg Atorvastatin Calcium (Lipitor -) 40 mg PO HS [facility] Last Admin: 10/24/17 21:53 Dose: 40 mg Calcitriol (Rocaltrol -) 0.25 mcg PO [id number]@1000 [facility] Last Admin: 10/25/17 12:07 Dose: 0.25 mcg Carvedilol (Coreg -) 12.5 mg PO DAILY [facility] Last Admin: 10/25/17 12:07 Dose: 12.5 mg Docusate Sodium (Colace Liquid -) 50 mg PO BID [facility] Last Admin: 10/25/17 12:08 Dose: 50 mg Febuxostat (Uloric -) 40 mg PO DAILY [facility] Last Admin: 10/25/17 12:08 Dose: 40 mg Finasteride (Proscar -) 5 mg PO BID [facility] Last Admin: 10/25/17 12:07 Dose: 5 mg Folic Acid (Folic Acid -) 1 mg PO DAILY [facility] Last Admin: 10/25/17 12:07 Dose: 1 mg Furosemide (Lasix -) 40 mg PO BIDLASIX [facility] Last Admin: 10/25/17 13:45 Dose: 40 mg Heparin Sodium (Porcine) (Heparin -) 5,000 unit SQ TID [facility] Last Admin: 10/25/17 13:45 Dose: Not Given IV Flush (Picc Line Flush) 8 ml IVPUSH PRN PRN PRN Reason: Protocol IV Flush (Lucila-Cath Flush) 10 ml IVPUSH PRN PRN PRN Reason: Protocol Ertapenem 0.5 gm/ Sodium (Chloride) 100 mls @ 200 mls/hr IVPB DAILY [facility] PRN Reason: Protocol Last Admin: 10/25/17 12:09 Dose: 200 mls/hr Insulin Aspart (Novolog Vial Sliding Scale -) 1 vial SQ ACHS [facility] PRN Reason: Protocol Last Admin: 10/25/17 12:28 Dose: 4 units Lidocaine HCl (Xylocaine 5% Top. Ointment) 1 applic TP BID [facility] Last Admin: 10/25/17 12:08 Dose: 1 applic Losartan Potassium (Cozaar -) 50 mg PO DAILY [facility] Last Admin: 10/25/17 12:07 Dose: 50 mg Misoprostol (Cytotec -) 200 mcg PO TID [facility] Last Admin: 10/25/17 13:45 Dose: 200 mcg Pantoprazole Sodium (Protonix -) 40 mg PO BID [facility] Last Admin: 10/25/17 12:07 Dose: 40 mg Polyethylene Glycol (Miralax (For Daily Use) -) 17 gm PO DAILY [facility] Last Admin: 10/25/17 12:06 Dose: 17 gm Potassium Chloride (K-Dur -) 10 meq PO DAILY [facility] Last Admin: 10/25/17 12:07 Dose: 10 meq Repaglinide (Prandin -) 2 mg PO TIDAC [facility] Last Admin: 10/25/17 12:09 Dose: 2 mg Senna (Senna -) 1 tab PO DAILY [facility] Last Admin: 10/25/17 12:07 Dose: 1 tab Sodium Bicarbonate (Sodium Bicarbonate -) 650 mg PO TID [facility] Last Admin: 10/25/17 13:45 Dose: 650 mg Tamsulosin HCl (Flomax -) 0.4 mg PO BID@0830,2200 [facility] Last Admin: 10/25/17 12:07 Dose: 0.4 mg - Objective Vital Signs: Vital Signs Temperature 97.4 F L 10/25/17 13:32 Pulse Rate 84 10/25/17 13:32 Respiratory Rate 16 10/25/17 13:32 Blood Pressure 130/78 10/25/17 13:32 O2 Sat by Pulse Oximetry (%) 99 10/25/17 09:00 Constitutional: Yes: No Distress, Calm Cardiovascular: Yes: Regular Rate and Rhythm Respiratory: Yes: Regular, CTA Bilaterally Gastrointestinal: Yes: Normal Bowel Sounds, Soft Musculoskeletal: Yes: WNL Extremities: Yes: WNL Neurological: Yes: Alert, Oriented Psychiatric: Yes: Alert, Oriented Labs: CBC, BMP 10/25/17 08:05 10/25/17 08:05 INR, PTT INR 1.35 (0.82-1.09) H 10/24/17 06:30 Assessment/Plan 1. KIRIT 2. urinary obstruction 3. DM 4. HTN 5. a-fib 6. gout 7. constipation 8. hyperlipidemia 9. BPH 10. UTI plan continue ertapenam patient will need 8 more days of ertapenam
--- NOTE | 2017-10-25 15:57 | DS ---
Physical Exam: SUBJECTIVE: Patient seen and examined at bedside. doing well. Correa in place with no hematuria, NPO for picc line , ready to dc home and follow up with his PCP and urologist. OBJECTIVE: Vital Signs Period Temp Pulse Resp BP Sys/Stewart Pulse Ox Last 24 Hr 97.4 F-98.1 F 50-84 16-20 116-164/68-79 96-99 PHYSICAL EXAM GENERAL: Awake, alert, and fully oriented, in no acute distress. HEAD: Normal with no signs of trauma. EARS, NOSE, THROAT: Ears normal, nares patent, oropharynx clear without exudates. Moist mucous membranes. NECK: Normal range of motion, supple without lymphadenopathy, JVD, or masses. LUNGS: Breath sounds equal, clear to auscultation bilaterally. No wheezes, and no crackles. No accessory muscle use. HEART: irreregular s1,s2 normal ABDOMEN: Soft, nontender, not distended, normoactive bowel sounds, no guarding, no rebound, no masses. midline scar present, incision hernia. UPPER EXTREMITIES: 2+ pulses, warm, well-perfuse. LOWER EXTREMITIES: warm, No calf tenderness. No peripheral edema. PSYCHIATRIC: Cooperative. SKIN: Warm, dry, LABS Laboratory Results - last 24 hr 10/24/17 10/24/17 10/25/17 17:38 21:04 06:45 WBC RBC Hgb Hct MCV MCH MCHC RDW Plt Count MPV Sodium Potassium Chloride Carbon Dioxide Anion Gap BUN Creatinine Creat Clearance w eGFR POC Glucometer 211 204 243 Random Glucose Calcium Total Bilirubin AST ALT Alkaline Phosphatase Total Protein Albumin 10/25/17 10/25/17 10/25/17 08:05 08:05 12:27 WBC 9.0 D RBC 3.75 L Hgb 10.0 L Hct 31.4 L MCV 83.6 MCH 26.7 MCHC 31.9 L RDW 17.6 H Plt Count 272 MPV 8.9 Sodium 138 Potassium 4.3 Chloride 103 Carbon Dioxide 24 Anion Gap 11 BUN 53 H Creatinine 2.1 H Creat Clearance w eGFR 31.11 POC Glucometer 221 Random Glucose 248 H D Calcium 8.8 Total Bilirubin 0.3 D AST 9 L D ALT 15 Alkaline Phosphatase 98 Total Protein 7.3 Albumin 3.3 L CBC, BMP 10/25/17 08:05 10/25/17 08:05 HOSPITAL COURSE: Date of Admission:10/23/17 Date of Discharge: 10/25/17 is a 70 M with pmhx. of HTN, HLD, DM, GERD, AFib, CAD, BPH, Neurogenic bladder, GI bleed, Chronic UTIs who presents to ED with complaint of urinary retention for approximately 1 day, being admitted for ESBL E-coli UTI and KIRIT. Pt left hospital AMA and is back to continue his workup.for UTI,pt has a h/o ESBL and indwelling correa,Cont. ertapenem IV day 7, more 8 days total 14 per ID recommendation pt has BPH cystoscopy and urodynamic study will be done as out pt with Dr. Shukla(spoke with him over the phone) pt has KIRIT on CKD we held nephrotoxic meds (cholchicine till kidney function recover )he will follow up with as out pt in term of Afib ,rate controlled,On Eliquis , pt has DM and was put o ISS as in patient he can resume his home meds upon discharged pt has H/o GERD on Protonix 40 mg po daily home meds and he use miralax,senna, colace,and milk of magnesia for constipation, resume as needed. tunnel cath was placed uppon discharged and pt will continue to get 8 days of IV abx Ertapenem at [facility] infusion center.he will follow with , and . pt is hemodynamically stable and understand the plan and agree with the recommendations. Minutes to complete discharge: 40 Discharge Summary Reason For Visit: URINARY TRACT INFECTION ASSOCIATED WITH CATHERIZAT - Instructions Diet, Activity, Other Instructions: you were admitted to the hospital for urinary retention, Correa was inserted and urologist was consulted You will be send home with PICC line (intravenous line ) and you will come daily to infusion center to continue getting the IV antibiotics called Ertapenem for more 8 days. You will also need to get weekly lab to monitor your kidney function. You colchcine was held due to acute kidney injury, you need to follow up with your kidney doctor to discuss whether it's necessary to restart this medication Please resume all other home meds as prescribed before admission Please follow up with your primary care doctor within one week Please follow with urologist within one week please maintain the Correa catheter till you see the urologist If you develop fever, chills or sever abdominal pain or sever urinary symptoms or noticed any blood in urine call 911 or come back to emergency room PERI. Referrals: Nelda Thakkar [Primary Care Provider] - 1 Week Domenico Ledbetter MD [Staff Physician] - 1 Week Adi Shukla MD [Staff Physician] - 1 Week Disposition: HOME - Home Medications Comprehensive Discharge Medication List: Ambulatory Orders Cod Liver Oil 1 each PO ASDIR 11/08/14 Docusate Sodium [Dulcolax Stool Softener] 50 mg PO DAILY PRN 11/08/14 Finasteride [Proscar -] 20 mg PO DAILY 11/08/14 Folic Acid - 1 mg PO DAILY 11/08/14 Calcitriol [Calcitriol -] 0.25 mcg PO MOWEFR 09/30/17 Magnesium Hydroxide [Milk of Magnesia] 400 mg PO QID PRN 09/30/17 Misoprostol 200 mcg PO TID 09/30/17 Sennosides [Senna] 8.6 mg PO HS 09/30/17 Sodium Bicarbonate 650 mg PO TID 09/30/17 Atorvastatin Calcium 40 mg PO DAILY 10/19/17 Carvedilol [Coreg] 12.5 mg PO BID 10/19/17 Colchicine 0.6 mg PO DAILY 10/19/17 Furosemide [Lasix] 40 mg PO BID 10/19/17 Losartan Potassium 50 mg PO DAILY 10/19/17 Pantoprazole Sodium [Protonix] 40 mg PO BID 10/19/17 Potassium Chloride [Klor-Con M20] 20 meq PO DAILY 10/19/17 Repaglinide [Prandin] 6 mg PO BID 10/19/17 Rivaroxaban [Xarelto -] 15 mg PO DAILY 10/19/17 Tamsulosin HCl [Flomax] 0.4 mg PO BID 10/19/17 Alfuzosin HCl [Alfuzosin HCl ER] 10 mg PO DAILY 10/23/17 Allopurinol [Zyloprim -] 100 mg PO DAILY 10/23/17 Febuxostat [Uloric] 40 mg PO DAILY 10/23/17 Lidocaine 5% Patch [Lidoderm -] 1 patch TP TID 10/23/17 Magnesium Oxide [Mag-Ox -] 400 mg PO DAILY 10/23/17 Multivitamin [Multiple Vitamins] 1 each PO DAILY 10/23/17 Polyethylene Glycol 3350 [Miralax 119 gm Btl -] 17 gm PO DAILY 10/23/17 Acetaminophen [Tylenol .Regular Strength -] 325 mg PO Q6H PRN tablet 10/24/17 Ertapenem Sodium [Invanz -] 0.5 gm IVPB DAILY vial 10/24/17 Miscellaneous Drug Not In Syst [Outpatient Lab Test] 1 each ASDIR #1 misc 03/05 Miscellaneous Medical Supply [Outpatient Order] 0.5 gm IVPB DAILY 8 Days #1 misc 10/24/17 This patient is new to me today: No Emergency Visit: Yes ED Registration Date: 10/23/17 Care time: The patient presented to the Emergency Department on the above date and was hospitalized for further evaluation of their emergent condition. Critical Care patient: No - Discharge Referral Referred to [facility] No
--- NOTE | 2017-10-25 20:15 | PN ---
Teaching Attending Note Name of Resident: Ayan Hodge ATTENDING PHYSICIAN STATEMENT I saw and evaluated the patient. I reviewed the resident's note and discussed the case with the resident. I agree with the resident's findings and plan as documented. SUBJECTIVE: refused interview and exam as had an important phone call regarding transportation ASSESSMENT AND PLAN: Patient is a 70 M with pmhx. of HTN, HLD, DM, GERD, AFib, CAD, BPH, Neurogenic bladder, GI bleed, UTIs who presents to ED with complaint of urinary retention he was found to have ESBL E-coli UTI and KIRIT. 1- ESBL UTI . cont ertapenem x 8 more days - Tunnel cath in - f/u with infusion center 2- Urinary retention . cont correa . refused intervention f/u as out pt cont Afluzosin and flomax 3- KIRIT: cont correa , Cr improved 4- A fib/DM /GERD /constip cont chronic meds
== END 2017-10-25 14:49 | disposition home or self-care (01) | DRG 699 ==
LOC: JER 20:01 → JERBED 10-23 01:24 → J8W 10-23 15:44
PROVIDERS: ADMIT Internal Medicine; ATTEND Internal Medicine
PROC: 0JH63XZ Insertion of Tunneled Vascular Access Device into Chest Subcutaneous Tissue and Fascia, Percutaneous Approach (ICD-10-PCS; principal; 2017-10-25)
DX: T83.511A Infection and inflammatory reaction due to indwelling urethral catheter, initial encounter (principal); N17.9 Acute kidney failure, unspecified; N39.0 Urinary tract infection, site not specified; B96.20 Unspecified Escherichia coli [E. coli] as the cause of diseases classified elsewhere; Z16.12 Extended spectrum beta lactamase (ESBL) resistance; I48.91 Unspecified atrial fibrillation; K21.9 Gastro-esophageal reflux disease without esophagitis; K59.00 Constipation, unspecified; N40.0 Benign prostatic hyperplasia without lower urinary tract symptoms; I12.9 Hypertensive chronic kidney disease with stage 1 through stage 4 chronic kidney disease, or unspecified chronic kidney disease; E11.22 Type 2 diabetes mellitus with diabetic chronic kidney disease; N18.9 Chronic kidney disease, unspecified; I25.10 Atherosclerotic heart disease of native coronary artery without angina pectoris; R33.9 Retention of urine, unspecified; E78.5 Hyperlipidemia, unspecified; N13.9 Obstructive and reflux uropathy, unspecified; M10.9 Gout, unspecified; Y83.9 Surgical procedure, unspecified as the cause of abnormal reaction of the patient, or of later complication, without mention of misadventure at the time of the procedure
CPT/HCPCS: 36415; 36558; 71046-TC-FY; 77001-TC-FY; 80053; 82962; 83735; 84100; 85025; 85027; 85610; 85730; 86850; 86900; 86901; 87086; 93005; 93010; 99284-25; C1751; J1644

== ENCOUNTER 2017-10-26 10:38 | Day surgery (SDC) | payer OTHER ==
[~2017-10-26 10:38] MED LIST: ERTAPENEM SODIUM 0.5 GM in SODIUM CHLORIDE 100 ML IVPB ONE
[2017-10-26 11:37] VITALS: TEMP 98.2
[2017-10-26 12:13] VITALS: BP 111/57; PULSE 59
== END 2017-10-26 12:14 | disposition home or self-care (01) ==
LOC: JINFUSION 10:38
PROVIDERS: ATTEND Internal Medicine
DX: N39.0 Urinary tract infection, site not specified (principal); B96.20 Unspecified Escherichia coli [E. coli] as the cause of diseases classified elsewhere; E11.22 Type 2 diabetes mellitus with diabetic chronic kidney disease; I12.0 Hypertensive chronic kidney disease with stage 5 chronic kidney disease or end stage renal disease; N18.5 Chronic kidney disease, stage 5
CPT/HCPCS: 36415; 85651; 86140; 96365

== ENCOUNTER 2017-10-27 10:16 | Day surgery (SDC) | payer OTHER ==
[2017-10-27] MEDS ORDERED: ERTAPENEM SODIUM 1 GM VIAL ONE (10:30)
[2017-10-27 11:01] VITALS: TEMP 98
[2017-10-27 11:32] VITALS: BP 112/62; PULSE 50
== END 2017-10-27 11:35 | disposition home or self-care (01) ==
LOC: JINFUSION 10:16
PROVIDERS: ATTEND Internal Medicine
DX: N39.0 Urinary tract infection, site not specified (principal); B96.20 Unspecified Escherichia coli [E. coli] as the cause of diseases classified elsewhere; E11.22 Type 2 diabetes mellitus with diabetic chronic kidney disease; I12.0 Hypertensive chronic kidney disease with stage 5 chronic kidney disease or end stage renal disease; N18.5 Chronic kidney disease, stage 5
CPT/HCPCS: 96365

== ENCOUNTER 2017-10-28 10:11 | Day surgery (SDC) | payer OTHER ==
[2017-10-28] MEDS ORDERED: ERTAPENEM SODIUM 0.5 GM in SODIUM CHLORIDE 50 ML IVPB ONE (11:00)
[2017-10-28] MEDS ORDERED: ERTAPENEM SODIUM 0.5 GM in SODIUM CHLORIDE 100 ML IVPB ONE (11:00)
[2017-10-28 11:26] VITALS: BP 144/77; TEMP 97.7
[2017-10-28 11:27] VITALS: PULSE 77
== END 2017-10-28 13:00 | disposition home or self-care (01) ==
LOC: JINFUSION 10:11 → J7W 10:15 → JINFUSION 13:00
PROVIDERS: ATTEND Internal Medicine
DX: N39.0 Urinary tract infection, site not specified (principal); B96.20 Unspecified Escherichia coli [E. coli] as the cause of diseases classified elsewhere; E11.22 Type 2 diabetes mellitus with diabetic chronic kidney disease; I12.0 Hypertensive chronic kidney disease with stage 5 chronic kidney disease or end stage renal disease; N18.5 Chronic kidney disease, stage 5
CPT/HCPCS: 96365

== ENCOUNTER 2017-10-29 09:50 | Day surgery (SDC) | payer OTHER ==
[2017-10-29] MEDS ORDERED: ERTAPENEM SODIUM 0.5 GM in SODIUM CHLORIDE 100 ML IVPB ONE (11:00)
[2017-10-29 11:07] VITALS: BP 143/77; PULSE 70; TEMP 97.9
== END 2017-10-29 13:00 | disposition home or self-care (01) ==
LOC: JINFUSION 09:50 → J7W 09:51 → JINFUSION 13:00
PROVIDERS: ATTEND Internal Medicine
DX: N39.0 Urinary tract infection, site not specified (principal); B96.20 Unspecified Escherichia coli [E. coli] as the cause of diseases classified elsewhere; E11.22 Type 2 diabetes mellitus with diabetic chronic kidney disease; I12.0 Hypertensive chronic kidney disease with stage 5 chronic kidney disease or end stage renal disease; N18.5 Chronic kidney disease, stage 5
CPT/HCPCS: 96365

== ENCOUNTER 2017-10-30 10:00 | Day surgery (SDC) | payer OTHER ==
[2017-10-30 10:29] VITALS: TEMP 98
[2017-10-30] MEDS ORDERED: ERTAPENEM SODIUM 0.5 GM in SODIUM CHLORIDE 100 ML IVPB ONE (11:00)
[2017-10-30 11:42] VITALS: BP 126/70; PULSE 61
== END 2017-10-30 11:40 | disposition home or self-care (01) ==
LOC: JASU-ENDO 10:00
PROVIDERS: ATTEND Internal Medicine
DX: N39.0 Urinary tract infection, site not specified (principal); B96.20 Unspecified Escherichia coli [E. coli] as the cause of diseases classified elsewhere; E11.22 Type 2 diabetes mellitus with diabetic chronic kidney disease; I12.0 Hypertensive chronic kidney disease with stage 5 chronic kidney disease or end stage renal disease; N18.5 Chronic kidney disease, stage 5
CPT/HCPCS: 10022; 96365

== ENCOUNTER 2017-10-31 09:59 | Day surgery (SDC) | payer OTHER ==
[2017-10-31] MEDS ORDERED: ERTAPENEM SODIUM 1 GM VIAL ONE (10:09)
[2017-10-31] MEDS ORDERED: ERTAPENEM SODIUM 0.5 GM in SODIUM CHLORIDE 100 ML IVPB ONE (10:15)
[2017-10-31 10:27] VITALS: TEMP 97.7
[2017-10-31 10:59] VITALS: BP 128/81; PULSE 66
== END 2017-10-31 11:02 | disposition home or self-care (01) ==
LOC: JINFUSION 09:59
PROVIDERS: ATTEND Internal Medicine
DX: N39.0 Urinary tract infection, site not specified (principal); B96.20 Unspecified Escherichia coli [E. coli] as the cause of diseases classified elsewhere; E11.22 Type 2 diabetes mellitus with diabetic chronic kidney disease; I12.0 Hypertensive chronic kidney disease with stage 5 chronic kidney disease or end stage renal disease; N18.5 Chronic kidney disease, stage 5
CPT/HCPCS: 96365

== ENCOUNTER 2017-11-01 10:39 | Day surgery (SDC) | payer OTHER ==
[2017-11-01 11:18] VITALS: TEMP 98.1
[2017-11-01 12:01] VITALS: BP 135/72; PULSE 70
== END 2017-11-01 12:03 | disposition home or self-care (01) ==
LOC: JINFUSION 10:39
PROVIDERS: ATTEND Internal Medicine
DX: N39.0 Urinary tract infection, site not specified (principal); B96.20 Unspecified Escherichia coli [E. coli] as the cause of diseases classified elsewhere; E11.22 Type 2 diabetes mellitus with diabetic chronic kidney disease; I12.0 Hypertensive chronic kidney disease with stage 5 chronic kidney disease or end stage renal disease; N18.5 Chronic kidney disease, stage 5
CPT/HCPCS: 96365

== ENCOUNTER 2017-11-02 11:54 | Day surgery (SDC) | payer OTHER ==
[2017-11-02 13:32] VITALS: BP 147/61; PULSE 67; TEMP 98
[2017-11-02 13:49] LABS: HEMATOCRIT 30.8 % (35.4-49); HEMOGLOBIN 9.7 GM/dL (11.7-16.9); MCH 26.5 pg (25.7-33.7); MCHC 31.6 g/dl (32.0-35.9); MEAN CELL VOLUME 83.9 fl (80-96); MEAN PLT VOLUME 9.1 fl (7.5-11.1); PLATELET COUNT 276 K/MM3 (134-434); RBC 3.67 M/mm3 (4.00-5.60); RDW 17.9 % (11.9-15.9); WHITE BLOOD COUNT 6.4 K/mm3 (4.0-10.0)
[2017-11-02 14:19] LABS: ANION GAP 11 (8-16); BLOOD UREA NITROGEN 52 mg/dL (7-18); CALCIUM 8.8 mg/dL (8.5-10.1); CHLORIDE 108 mmol/L (98-107); CO2 22 mmol/L (21-32); CREATININE 2.6 mg/dL (0.7-1.3); GLUCOSE,RANDOM 201 mg/dL (74-106); SODIUM 141 mmol/L (136-145)
[2017-11-02 14:40] LABS: ERYTHROCYTE SEDIMENTATION RATE 27 mm/hr (0-20)
== END 2017-11-02 14:30 | disposition home or self-care (01) ==
LOC: JINFUSION 11:54
PROVIDERS: ATTEND Internal Medicine
DX: N39.0 Urinary tract infection, site not specified (principal); B96.20 Unspecified Escherichia coli [E. coli] as the cause of diseases classified elsewhere; E11.22 Type 2 diabetes mellitus with diabetic chronic kidney disease; I12.0 Hypertensive chronic kidney disease with stage 5 chronic kidney disease or end stage renal disease; N18.5 Chronic kidney disease, stage 5
CPT/HCPCS: 36415; 80048; 85027; 85651; 86140; 96365

== ENCOUNTER 2019-04-05 17:32 | Emergency (ER) | payer OTHER ==
--- NOTE | 2019-04-05 17:44 | PDOC ---
Rapid Medical Evaluation Time Seen by Provider: 04/05/19 17:34 Medical Evaluation: Allergies Allergy/AdvReac Type Severity Reaction Status Date / Time ibuprofen [From Motrin] Allergy Intermediate "STOMACH Verified 10/22/17 20:15 BURST" REQUIRING SX & BLOOD TRANSFUSION. 04/05/19 17:41 I have performed a brief in-person evaluation of this patient. The patient presents with a chief complaint of: No output from suprapubic cath ~ 4-5 hrs ago, notices some urine from penis. No abd pain, n/v/f/c. H/o BPH, neurogenic bladder (last cath changed 3 weeks ago at [facility] where pt was admitted for a wound infxn-not currently on abx) recurrent UTIs, HTN, HLD, DM,, afib on xarelto, CAD, AICD, GIB Pertinent physical exam findings:stable and well ashley I have ordered the following:labs The patient will proceed to the ED for further evaluation. Discharge Disposition - Diagnosis Suprapubic catheter dysfunction Qualifiers: Encounter type: initial encounter Qualified Code(s): T83.010A - Breakdown ( mechanical) of cystostomy catheter, initial encounter - Referrals - Patient Instructions - Post Discharge Activity
[2019-04-05 17:45] VITALS: BP 141/63; PULSE 50; TEMP 98.1; BMI 25.7
--- NOTE | 2019-04-05 19:32 | PDOC ---
Documentation entered by Loki Torres SCRIBE, acting as scribe for Reid Lynne MD. Reid Lynne MD: This documentation has been prepared by the Brian fernandez Elijah, SCRIBE, under my direction and personally reviewed by me in its entirety. I confirm that the documentation accurately reflects all work, treatment, procedures, and medical decision making performed by me. Attending Attestation - Resident Resident Name: Iker Briggs - ED Attending Attestation I have performed the following: I have examined & evaluated the patient, The case was reviewed & discussed with the resident, I agree w/resident's findings & plan - HPI HPI: 04/05/19 19:29 Patient is a 74 year old male with a significant past medical history of hypertension, hyperlipidemia, diabetes, GERD, AFIB(on Xarelto), CAD, BPH, neurogenic bladder, GI bleed, chronic UTIs who presents to the ED with urinary retention that began x7 hours prior. Patient notes that his suprapubic catheter was replaced a few weeks ago and today he was not able to urinate. Patient associates minor pain at this time and wanting to flush his catherter prompted his visit to the ED. Denies fever, chills, nausea, vomiting, cough. Allergies: Ibuprofen PCP: Dr. Thakkar - Physicial Exam PE: 04/05/19 19:29 GENERAL: Awake, alert, and fully oriented, in no acute distress HEAD: No signs of trauma ENT: Hearing grossly normal. NECK: Normal ROM. Supple. ABDOMEN: Soft, nontender. suprapubic catheter clean, dry, intact, with no evidence of infection. No guarding, no rebound. EXTREMITIES: Normal range of motion, no edema. No clubbing or cyanosis. No cords, erythema, or tenderness NEUROLOGICAL: Cranial nerves II through XII grossly intact. Normal speech. SKIN: Warm, Dry. No rashes or lesions noted. - Medical Decision Making 04/05/19 19:33 Vital Signs Temp Pulse Resp BP Pulse Ox 98.1 F 50 L 17 141/63 98 04/05/19 17:39 04/05/19 17:39 04/05/19 17:39 04/05/19 17:39 04/05/19 17:39 Patient has had few hours of suprapubic catheter blockage. However, patient has no other symptoms and no fevers. We'll attempt to flush out the catheter but if unsuccessful, we'll replace a superpubic catheter. Once the catheter is successfully working, the patient be discharged home with outpatient follow-up. 04/05/19 20:29 16 albanian correa catheter inserted into suprapubic catheter with significant drainage of urine. Pt feels much better. Will d/c with PMD followup.
--- NOTE | 2019-04-05 19:34 | PDOC ---
History of Present Illness - General Chief Complaint: Urinary Catheter Problem Stated Complaint: PENIS IMPLANT PROBLEM Time Seen by Provider: 04/05/19 17:34 History Source: Patient, Old Records Exam Limitations: No Limitations - History of Present Illness Initial Comments: HPI: 74 y/o male presenting to [facility] ER complaining of several hours without suprapubic catheter output with suprapubic tenderness to palpation. Catheter was last changed three weeks ago at [facility] during multi-day hospitalization for left foot infection. No trauma to the area. Denies observing hematuria in the collection bag. Continues to pass small amount of urine through his penis. Denies associated dysuria, fevers, or chills. Pt has a urology clinic f/u scheduled for next week. Urologist: Dr. Serna Review of Systems: In addition to that documented in the HPI above, the additional ROS was obtained : Constitutional: Denies fevers or chills ENMT: Denies sore throat CV: Denies chest pain Resp: Denies SOB GI: Denies vomiting or diarrhea : Per HPI Physical Examination: Constitutional: Adult male in no acute distress or obvious discomfort. Found semi-fowlers on hospital bed. Alert and oriented x4. Answered all questions appropriately and completely. Speech was non-labored, non-pressured. Cardiovascular / Chest: Irregularly irregular rate and rhythm. No murmur, rubs, clicks, or gallops. Peripheral pulses: radial pulses full. Respiratory: Breathing unlabored. Equal chest rise and fall. Clear to auscultation bilaterally. No stridor, no wheezing, no rhonchi. Gastrointestinal: abdomen is mildly tender in suprapubic region without grimace , rebound, or guarding. Globally, abdomen is soft and nondistended. Easily reducible midline hernia. Multiple intact and old appearing post surgical scars. Male : Suprapubic catheter with collection bag in place. Site well appearing without erythema, fluctuance, or drainage. Neuro: Alert and oriented. Moving all four extremities spontaneously. Skin: Warm, dry, and intact. Psych: Affect: appropriate. Mood: normal. MDM: *Reviewed vital signs, nursing notes, and prior visit documentation (if available). 74 y/o male presenting with acute dysfunction of chronic suprapubic catheter without infectious signs or symptoms. Afebrile. Vitals unremarkable for hypotension or tachycardia. Physical exam as described above. Suspect suprapubic tenderness is secondary to acute urinary retention. Low suspicion for infectious etiology. Attempted to flush catheter without significant improvement in urinary output. Catheter replaced with new 16fr catheter. Large amount of urine output and improvement of pain immediately after placement. Arreaga sediment noted on tip of old catheter. Pt to f/u at previously scheduled urology clinic appointment this week. Answered all questions. Provided return precautions. Pt expressed verbal understanding and agreement with plan to discharge home with outpatient follow up. Iker Briggs M.D., PGY2 Emergency Medicine Resident Past History - Past Medical History Allergies/Adverse Reactions: Allergies Allergy/AdvReac Type Severity Reaction Status Date / Time ibuprofen [From Motrin] Allergy Intermediate "STOMACH Verified 04/05/19 17:45 BURST" REQUIRING SX & BLOOD TRANSFUSION. Home Medications: Ambulatory Orders Cod Liver Oil 1 each PO ASDIR 11/08/14 Docusate Sodium [Dulcoease] 50 mg PO DAILY PRN 11/08/14 Finasteride [Proscar -] 20 mg PO DAILY 11/08/14 Folic Acid - 1 mg PO DAILY 11/08/14 Calcitriol [Calcitriol -] 0.25 mcg PO MOWEFR 09/30/17 Magnesium Hydroxide [Milk of Magnesia] 400 mg PO QID PRN 09/30/17 Misoprostol 200 mcg PO TID 09/30/17 Sennosides [Senna] 8.6 mg PO HS 09/30/17 Sodium Bicarbonate 650 mg PO TID 09/30/17 Atorvastatin Calcium 40 mg PO DAILY 10/19/17 Carvedilol [Coreg] 12.5 mg PO BID 10/19/17 Colchicine 0.6 mg PO DAILY 10/19/17 Furosemide [Lasix] 40 mg PO BID 10/19/17 Losartan Potassium 50 mg PO DAILY 10/19/17 Pantoprazole Sodium [Protonix] 40 mg PO BID 10/19/17 Potassium Chloride [Klor-Con M20] 20 meq PO DAILY 10/19/17 Repaglinide [Prandin] 6 mg PO BID 10/19/17 Rivaroxaban [Xarelto] 15 mg PO DAILY 10/19/17 Tamsulosin HCl [Flomax] 0.4 mg PO BID 10/19/17 Alfuzosin HCl [Alfuzosin HCl ER] 10 mg PO DAILY 10/23/17 Allopurinol [Zyloprim -] 100 mg PO DAILY 10/23/17 Febuxostat [Uloric] 40 mg PO DAILY 10/23/17 Lidocaine 5% Patch [Lidoderm -] 1 patch TP TID 10/23/17 Magnesium Oxide [Mag-Ox -] 400 mg PO DAILY 10/23/17 Multivitamin [Multiple Vitamins] 1 each PO DAILY 10/23/17 Polyethylene Glycol 3350 [Miralax 119 gm Btl -] 17 gm PO DAILY 10/23/17 Acetaminophen [Tylenol .Regular Strength -] 325 mg PO Q6H PRN tablet 10/24/17 Ertapenem Sodium [Invanz -] 0.5 gm IVPB DAILY vial 10/24/17 Ciclopirox/Skin Cleanser No.40 [Loprox 0.77% Suspension Kit] 1 each TP BID 10/30 Diclofenac Sodium [Solaraze] 100 gm TP BID 10/30/17 Econazole Nitrate 1% [Spectazole 1%] 85 gm TP DAILY 10/30/17 Insulin Glargine,Hum.rec.anlog [Lantus Solostar] 100 unit SQ DAILY 10/30/17 Lidocaine 5% Top. Ointment [Xylocaine 5% Top. Ointment] 1 applic TP TID Nitrofurantoin Macrocrystal [Macrodantin] 100 mg PO BID 10/30/17 Cardiac Disorders: Yes (H/O A FIB.,DEFIBRILATOR,CAD) COPD: No Diabetes: Yes Disorders: Yes (NEUROGENIC BLADDER, RECURRENT UTI'S,BPH) HTN: Yes Hypercholesterolemia: Yes - Surgical History Abdominal Surgery: Yes ("STOMACH BURST", HERNIA) Cardiac Surgery: Yes (BYPASS, ABLATION) - Immunization History Immunization Up to Date: Yes - Suicide/Smoking/Psychosocial Hx Smoking History: Never smoked Have you smoked in the past 12 months: No Information on smoking cessation initiated: No Hx Alcohol Use: No Drug/Substance Use Hx: No Substance Use Type: None *Physical Exam - Vital Signs Last Vital Signs Temp Pulse Resp BP Pulse Ox 98.1 F 50 L 17 141/63 98 04/05/19 17:39 04/05/19 17:39 04/05/19 17:39 04/05/19 17:39 04/05/19 17:39 *DC/Admit/Observation/Transfer Diagnosis at time of Disposition: Suprapubic catheter dysfunction Qualifiers: Encounter type: initial encounter Qualified Code(s): T83.010A - Breakdown ( mechanical) of cystostomy catheter, initial encounter - Discharge Dispostion Disposition: HOME Condition at time of disposition: Improved Decision to Admit order: No - Referrals Referrals: Nelda Thakkar [Primary Care Provider] - Lito Patterson [Other] - Patient Instructions Additional Instructions: You were seen today for a clogged suprapubic catheter. The catheter was exchanged for a fresh 16 [place] citizen catheter. Follow up with your urologist at your previously scheduled appointment this week. Watch for signs of urinary infection, including bloody or foul smelling urine, pain when you pee, lower abdominal pain, fever, or chills. Go to the nearest emergency department if your condition worsens or you feel like you need additional emergency evaluation. Print Language: FRENCH - Post Discharge Activity
== END 2019-04-05 20:40 | disposition home or self-care (01) ==
LOC: JER 17:32
PROC: 0TWB70Z Revision of Drainage Device in Bladder, Via Natural or Artificial Opening (ICD-10-PCS; principal; 2019-04-05)
DX: T83.010A Breakdown (mechanical) of cystostomy catheter, initial encounter (principal); I25.10 Atherosclerotic heart disease of native coronary artery without angina pectoris; I10 Essential (primary) hypertension; Z95.1 Presence of aortocoronary bypass graft; I48.91 Unspecified atrial fibrillation; Z79.01 Long term (current) use of anticoagulants; E11.9 Type 2 diabetes mellitus without complications; Z79.4 Long term (current) use of insulin; E78.00 Pure hypercholesterolemia, unspecified; N40.0 Benign prostatic hyperplasia without lower urinary tract symptoms; N31.9 Neuromuscular dysfunction of bladder, unspecified; Z87.440 Personal history of urinary (tract) infections
CPT/HCPCS: 51702; 99281-25

== ENCOUNTER 2019-09-25 06:16 | Emergency (ER) | payer OTHER ==
[2019-09-25 06:55] VITALS: BMI 26.5
--- NOTE | 2019-09-25 07:39 | PDOC ---
Documentation entered by Romie Haynes SCRIBE, acting as scribe for Tara Rangel MD. Tara Rangel MD: This documentation has been prepared by the Dallas fernandez Nirvannie, SCRIBE, under my direction and personally reviewed by me in its entirety. I confirm that the documentation accurately reflects all work, treatment, procedures, and medical decision making performed by me. History of Present Illness - General Chief Complaint: Urinary Catheter Problem Stated Complaint: PUBIC IMPLANT BLOCKED History Source: Patient Exam Limitations: No Limitations - History of Present Illness Initial Comments: 09/25/19 08:18 The patient is a 74 year old male, with a significant past medical history of hypertension, hyperlipidemia, diabetes, GERD, Afib, CAD, BPH, neurogenic bladder (s/p suprapubic catheter approx 18 months ago, 16 Malagasy), GI bleed, chronic UTIs, who presents to the emergency department with urinary retention. As per patient, onsetting last night he began to experience decreased output thus he subsequently attempted to flush it using a straw, pushing on it, and blowing air into it, without relief. He states after blowing air into the catheter there has been no flow. prompting his arrival to the ED. Patient notes his catheter was last changed 7 days ago (09/19) by his urologist. While in the ED, patient endorses suprapubic discomfort. He denies any recent hematuria prior to the retention. He denies any recent fevers, chills, headache or dizziness. He denies any recent nausea, vomiting, diarrhea or constipation. He denies any recent chest pain or shortness of breath. Allergies: Ibuprofen Primary Care Physician: Dr. Thakkar Urologist: Dr. Serna Past History - Past Medical History Allergies/Adverse Reactions: Allergies Allergy/AdvReac Type Severity Reaction Status Date / Time ibuprofen [From Motrin] Allergy Intermediate "STOMACH Verified 09/25/19 06:50 BURST" REQUIRING SX & BLOOD TRANSFUSION. Home Medications: Ambulatory Orders Cod Liver Oil 1 each PO ASDIR 11/08/14 Docusate Sodium [Dulcoease] 50 mg PO DAILY PRN 11/08/14 Finasteride [Proscar -] 20 mg PO DAILY 11/08/14 Folic Acid - 1 mg PO DAILY 11/08/14 Calcitriol [Calcitriol -] 0.25 mcg PO MOWEFR 09/30/17 Magnesium Hydroxide [Milk of Magnesia] 400 mg PO QID PRN 09/30/17 Misoprostol 200 mcg PO TID 09/30/17 Sennosides [Senna] 8.6 mg PO HS 09/30/17 Sodium Bicarbonate 650 mg PO TID 09/30/17 Atorvastatin Calcium 40 mg PO DAILY 10/19/17 Carvedilol [Coreg] 12.5 mg PO BID 10/19/17 Colchicine 0.6 mg PO DAILY 10/19/17 Furosemide [Lasix] 40 mg PO BID 10/19/17 Losartan Potassium 50 mg PO DAILY 10/19/17 Pantoprazole Sodium [Protonix] 40 mg PO BID 10/19/17 Potassium Chloride [Klor-Con M20] 20 meq PO DAILY 10/19/17 Repaglinide [Prandin] 6 mg PO BID 10/19/17 Rivaroxaban [Xarelto] 15 mg PO DAILY 10/19/17 Tamsulosin HCl [Flomax] 0.4 mg PO BID 10/19/17 Alfuzosin HCl [Alfuzosin HCl ER] 10 mg PO DAILY 10/23/17 Allopurinol [Zyloprim -] 100 mg PO DAILY 10/23/17 Febuxostat [Uloric] 40 mg PO DAILY 10/23/17 Lidocaine 5% Patch [Lidoderm -] 1 patch TP TID 10/23/17 Magnesium Oxide [Mag-Ox -] 400 mg PO DAILY 10/23/17 Multivitamin [Multiple Vitamins] 1 each PO DAILY 10/23/17 Polyethylene Glycol 3350 [Miralax 119 gm Btl -] 17 gm PO DAILY 10/23/17 Acetaminophen [Tylenol .Regular Strength -] 325 mg PO Q6H PRN tablet 10/24/17 Ertapenem Sodium [Invanz -] 0.5 gm IVPB DAILY vial 10/24/17 Ciclopirox/Skin Cleanser No.40 [Loprox 0.77% Suspension Kit] 1 each TP BID 10/30 Diclofenac Sodium [Solaraze] 100 gm TP BID 10/30/17 Econazole Nitrate 1% [Spectazole 1%] 85 gm TP DAILY 10/30/17 Insulin Glargine,Hum.rec.anlog [Lantus Solostar] 100 unit SQ DAILY 10/30/17 Lidocaine 5% Top. Ointment [Xylocaine 5% Top. Ointment] 1 applic TP TID Nitrofurantoin Macrocrystal [Macrodantin] 100 mg PO BID 10/30/17 Nitrofurantoin Monohyd/M-Cryst [Macrobid -] 100 mg PO BID #14 capsule 09/25/19 Cardiac Disorders: Yes (H/O A FIB.,DEFIBRILATOR,CAD) COPD: No Diabetes: Yes Disorders: Yes (NEUROGENIC BLADDER, RECURRENT UTI'S,BPH) HTN: Yes Hypercholesterolemia: Yes - Surgical History Abdominal Surgery: Yes ("STOMACH BURST", HERNIA) Cardiac Surgery: Yes (BYPASS, ABLATION) - Immunization History Immunization Up to Date: Yes - Psycho Social/Smoking Cessation Hx Smoking History: Unknown if ever smoked Have you smoked in the past 12 months: No Information on smoking cessation initiated: No Hx Alcohol Use: No Drug/Substance Use Hx: No Substance Use Type: None Review of Systems - Review of Systems Able to Perform ROS?: Yes Comments:: 09/25/19 08:18 GENERAL/CONSTITUTIONAL: No fever or chills. No weakness. HEAD, EYES, EARS, NOSE AND THROAT: No change in vision. No ear pain or discharge. No sore throat. CARDIOVASCULAR: No chest pain or shortness of breath. RESPIRATORY: No cough, wheezing, or hemoptysis. GASTROINTESTINAL: No nausea, vomiting, diarrhea or constipation. GENITOURINARY: +Urinary retention. +Suprapubic discomfort. MUSCULOSKELETAL: No joint or muscle swelling or pain. No neck or back pain. SKIN: No rash NEUROLOGIC: No headache, vertigo, loss of consciousness, or change in strength/ sensation. ENDOCRINE: No increased thirst. No abnormal weight change. HEMATOLOGIC/LYMPHATIC: No anemia, easy bleeding, or history of blood clots. ALLERGIC/IMMUNOLOGIC: No hives or skin allergy. All Other Systems: Reviewed and Negative *Physical Exam - Vital Signs Last Vital Signs Temp Pulse Resp BP Pulse Ox 97.7 F 56 L 18 123/57 L 97 09/25/19 06:50 09/25/19 06:50 09/25/19 06:50 09/25/19 06:50 09/25/19 06:50 - Physical Exam 09/25/19 07:38 awake alert lungs clear bilat heart rrr no mrg abd soft nt nd ext wwp. suprapubic cathetar in place. mild mucous at site, no surrounding erythema. ext wwp. Medical Decision Making - Medical Decision Making 09/25/19 08:37 suprapubic cathetar changed at bedside under sterile conditions. did hvae some burning on cathetar removal. placed without difficulty. mild WBC in cathetar 12 wbc, and positive leukocyte esterase. will treat with macrobid based on old culture results. called pt uroloist dr Shields. will given macrobid 09/25/19 09:46 09/25/19 09:51 d/w dr serna his urologist. baldo start macrobid 100 bid based on old culture results. pt afebrile, correa draining. will see meera in office in next few days. Discharge - Discharge Information Problems reviewed: Yes Clinical Impression/Diagnosis: Suprapubic catheter dysfunction Condition: Improved Disposition: HOME - Admission No - Additional Discharge Information Prescriptions: Nitrofurantoin Monohyd/M-Cryst [Macrobid -] 100 mg PO BID #14 capsule - Follow up/Referral Referrals: Nelda Thakkar [Primary Care Provider] - - Patient Discharge Instructions Patient Printed Discharge Instructions: How to Care for a Suprapubic Catheter Additional Instructions: you have a mild urinary infection. your cathetar was changed today 09/25/19. you should follow up with Dr Serna. call to schedule to see in the next few days. you will take macrobid ( nitrofurantion) 100 mg twice daily x 7 days. return for any difficilty with cathetar,fever, pain vomiting or any concerns. - Post Discharge Activity
[2019-09-25 09:17] LABS: EPI CELLS 13.8 /HPF (0-5/HPF); HYALINE CASTS 45 /lpf (0-8); URINE APPEARANCE CLOUDY; URINE BILIRUBIN NEGATIVE (NEGATIVE); URINE COLOR YELLOW; URINE GLUCOSE (UA) NEGATIVE (NEGATIVE); URINE KETONE NEGATIVE (NEGATIVE); URINE LEUK ESTERASE 2+ (NEGATIVE); URINE NITRITE NEGATIVE (NEGATIVE); URINE PROTEIN 2+ (NEGATIVE); URINE UROBILINOGEN 0.2 mg/dL (0.2-1.0); URINE WBC 12 /hpf (0-5)
[2019-09-25 10:11] LABS: YEAST MOD (NEGATIVE)
[2019-09-25] MEDS ORDERED: NITROFURANTOIN MACROCRYSTAL 50 MG CAPSULE (FP) ONE (10:20)
[2019-09-25 10:27] VITALS: BP 159/60; PULSE 68; TEMP 97
[2019-09-25] MEDS ORDERED: NITROFURANTOIN MACROCRYSTAL 50 MG CAPSULE (FP) PO SCH (10:30)
[2019-09-25 10:39] LABS: URINE BACTERIA 9.6 /hpf (NEGATIVE); URINE RBC 150.2 /hpf (0-4)
== END 2019-09-25 10:20 | disposition home or self-care (01) ==
LOC: JER 06:16
DX: T83.9XXA Unspecified complication of genitourinary prosthetic device, implant and graft, initial encounter (principal); I48.91 Unspecified atrial fibrillation; Z95.810 Presence of automatic (implantable) cardiac defibrillator; I10 Essential (primary) hypertension; E78.00 Pure hypercholesterolemia, unspecified; I25.10 Atherosclerotic heart disease of native coronary artery without angina pectoris; Z88.8 Allergy status to other drugs, medicaments and biological substances; E78.5 Hyperlipidemia, unspecified; K21.9 Gastro-esophageal reflux disease without esophagitis; N40.0 Benign prostatic hyperplasia without lower urinary tract symptoms
CPT/HCPCS: 81003; 87077; 87086; 99283-25

== ENCOUNTER 2019-11-12 11:10 | Emergency (ER) | payer OTHER ==
[2019-11-12 11:26] VITALS: BP 105/50; PULSE 50; TEMP 97.9; BMI 30.9
--- NOTE | 2019-11-12 12:43 | PDOC ---
History of Present Illness - General History Source: Patient Exam Limitations: Clinical Condition - History of Present Illness Initial Comments: 11/12/19 12:38 Patient with a history of insulin-dependent diabetes, hypertension, hyperlipidemia, CAD, A. fib on Xarelto, CKD presenting with aide with complaint of 2-day history of worsening swelling to left lower extremity and redness with multiple open wounds of bilateral feet. Patient and aide unsure how wound happened but aid report patient had blister which erupted and now have an open wound to bilateral feet. Patient denies fever. Patient reported being seen in wound care for chronic diabetic foot ulcers with last visit 3 weeks ago. Denies any other symptoms Is this a multiple visit Asthma Patient?: No Timing/Duration: other (2 days) <Brennon Ramírez - Last Filed: 11/12/19 15:20> <Elizabeth Andersen - Last Filed: 11/12/19 17:46> - General Chief Complaint: Wound Stated Complaint: bleeding sores, on xarelto Time Seen by Provider: 11/12/19 11:48 Past History - Past Medical History Cardiac Disorders: Yes (H/O A FIB.,DEFIBRILATOR,CAD) COPD: No Diabetes: Yes Disorders: Yes (NEUROGENIC BLADDER, RECURRENT UTI'S,BPH) HTN: Yes Hypercholesterolemia: Yes - Surgical History Abdominal Surgery: Yes ("STOMACH BURST", HERNIA) Cardiac Surgery: Yes (BYPASS, ABLATION) - Immunization History Immunization Up to Date: Yes - Psycho Social/Smoking Cessation Hx Smoking History: Never smoked Have you smoked in the past 12 months: No Information on smoking cessation initiated: No Hx Alcohol Use: No Drug/Substance Use Hx: No Substance Use Type: None <Brennon Ramírez - Last Filed: 11/12/19 15:20> <Elizabeth Andersen - Last Filed: 11/12/19 17:46> - Past Medical History Allergies/Adverse Reactions: Allergies Allergy/AdvReac Type Severity Reaction Status Date / Time ibuprofen [From Motrin] Allergy Intermediate "STOMACH Verified 11/12/19 11:25 BURST" REQUIRING SX & BLOOD TRANSFUSION. Home Medications: Ambulatory Orders Cod Liver Oil 1 each PO ASDIR 11/08/14 Docusate Sodium [Dulcoease] 50 mg PO DAILY PRN 11/08/14 Finasteride [Proscar -] 20 mg PO DAILY 11/08/14 Folic Acid - 1 mg PO DAILY 11/08/14 Calcitriol [Calcitriol -] 0.25 mcg PO MOWEFR 09/30/17 Magnesium Hydroxide [Milk of Magnesia] 400 mg PO QID PRN 09/30/17 Misoprostol 200 mcg PO TID 09/30/17 Sennosides [Senna] 8.6 mg PO HS 09/30/17 Sodium Bicarbonate 650 mg PO TID 09/30/17 Atorvastatin Calcium 40 mg PO DAILY 10/19/17 Carvedilol [Coreg] 12.5 mg PO BID 10/19/17 Colchicine 0.6 mg PO DAILY 10/19/17 Furosemide [Lasix] 40 mg PO BID 10/19/17 Losartan Potassium 50 mg PO DAILY 10/19/17 Pantoprazole Sodium [Protonix] 40 mg PO BID 10/19/17 Potassium Chloride [Klor-Con M20] 20 meq PO DAILY 10/19/17 Repaglinide [Prandin] 6 mg PO BID 10/19/17 Rivaroxaban [Xarelto] 15 mg PO DAILY 10/19/17 Tamsulosin HCl [Flomax] 0.4 mg PO BID 10/19/17 Alfuzosin HCl [Alfuzosin HCl ER] 10 mg PO DAILY 10/23/17 Allopurinol [Zyloprim -] 100 mg PO DAILY 10/23/17 Febuxostat [Uloric] 40 mg PO DAILY 10/23/17 Lidocaine 5% Patch [Lidoderm -] 1 patch TP TID 10/23/17 Magnesium Oxide [Mag-Ox -] 400 mg PO DAILY 10/23/17 Multivitamin [Multiple Vitamins] 1 each PO DAILY 10/23/17 Polyethylene Glycol 3350 [Miralax 119 gm Btl -] 17 gm PO DAILY 10/23/17 Acetaminophen [Tylenol .Regular Strength -] 325 mg PO Q6H PRN tablet 10/24/17 Ertapenem Sodium [Invanz -] 0.5 gm IVPB DAILY vial 10/24/17 Ciclopirox/Skin Cleanser No.40 [Loprox 0.77% Suspension Kit] 1 each TP BID 10/30 Diclofenac Sodium [Solaraze] 100 gm TP BID 10/30/17 Econazole Nitrate 1% [Spectazole 1%] 85 gm TP DAILY 10/30/17 Insulin Glargine,Hum.rec.anlog [Lantus Solostar] 100 unit SQ DAILY 10/30/17 Lidocaine 5% Top. Ointment [Xylocaine 5% Top. Ointment] 1 applic TP TID Nitrofurantoin Macrocrystal [Macrodantin] 100 mg PO BID 10/30/17 Nitrofurantoin Monohyd/M-Cryst [Macrobid -] 100 mg PO BID #14 capsule 09/25/19 Clindamycin [Cleocin -] 300 mg PO TID #21 capsule 11/12/19 Review of Systems - Review of Systems Able to Perform ROS?: Yes Is the patient limited Salvadorean proficient: No Constitutional: No: Chills, Fever, Malaise HEENTM: No: Symptoms Reported, See HPI, Eye Pain, Blurred Vision, Tearing, Recent change in vision, Double Vision, Cataracts, Ear Pain, Ocular Prothesis, Ear Discharge, Nose Pain, Nose Congestion, Tinnitus, Nose Bleeding, Hearing Loss , Throat Pain, Throat Swelling, Mouth Pain, Dental Problems, Difficulty Swallowing, Mouth Swelling, Other Respiratory: No: Symptoms reported, See HPI, Cough, Orthopnea, Shortness of Breath, SOB with Exertion, SOB at Rest, Stridor, Wheezing, Productive cough, Hemoptysis, Other Cardiac (ROS): No: Symptoms Reported, See HPI, Chest Pain, Edema, Irregular Heart Rate, Lightheadedness, Palpitations, Syncope, Chest Tightness, Other ABD/GI: No: Symptoms Reported, Nausea, Vomiting Musculoskeletal: Yes: Symptoms Reported, See HPI, Joint Swelling (swelling to left leg) Integumentary: Yes: Symptoms Reported, See HPI, Bruising (anterior b/l legs), Erythema (redness to left foot) Neurological: No: Symptoms reported, Numbness, Tingling All Other Systems: Reviewed and Negative <Brennon Ramírez - Last Filed: 11/12/19 15:20> *Physical Exam - Vital Signs Last Vital Signs Temp Pulse Resp BP Pulse Ox 97.9 F 50 L 19 105/50 L 98 11/12/19 11:23 11/12/19 11:23 11/12/19 11:23 11/12/19 11:23 11/12/19 11:23 - Physical Exam 11/12/19 12:47 GENERAL: Well developed, well nourished. Awake and alert. No acute distress. HEENT: Normocephalic, atraumatic. PERRLA, EOMI. No conjunctival pallor. Sclera are non-icteric. Moist mucous membranes. Oropharynx is clear. NECK: Supple. Full ROM. CARDIOVASCULAR: Regular rate and rhythm. No murmurs, rubs, or gallops. Distal pulses are 2+ and symmetric. PULMONARY: No evidence of respiratory distress. Lungs clear to auscultation bilaterally. No wheezing, rales or rhonchi. ABDOMINAL: Soft. Non-tender. Non-distended. No rebound or guarding. No organomegaly. Normoactive bowel sounds. MUSCULOSKELETAL Normal range of motion at all joints. EXTREMITIES: No cyanosis. Diffuse left peripheral edema. No calf tenderness. Diffuse erythema to dorsum of distal portion of left foot. 3 cm multiple area of superficial wound to hines of bilateral legs SKIN: Warm and dry. Normal capillary refill. No rashes. Recent minor superficial wound to hines of bilateral legs. Another 2 cm superficial wound to lateral aspect of right great toe. Diffuse peripheral edema to left lower extremity. NEUROLOGICAL: Alert, awake, appropriate. Gait is normal without ataxia. PSYCHIATRIC: Cooperative. Good eye contact. Appropriate mood General Appearance: Yes: Nourished, Appropriately Dressed. No: Apparent Distress <DesireeBrennon - Last Filed: 11/12/19 15:20> - Vital Signs Last Vital Signs Temp Pulse Resp BP Pulse Ox 97.9 F 50 L 19 105/50 L 98 11/12/19 11:23 11/12/19 11:23 11/12/19 11:23 11/12/19 11:23 11/12/19 11:23 <Elizabeth Andersen - Last Filed: 11/12/19 17:46> ED Treatment Course - LABORATORY CBC & Chemistry Diagram: 11/12/19 12:50 11/12/19 12:50 - RADIOLOGY Radiology Studies Ordered: Category Date Time Status DUPLEX VASCUL US-1 LEG [US] Stat Ultrasound 11/12/19 12:26 Ordered <DesireeBrennon Geoffrey - Last Filed: 11/12/19 15:20> - LABORATORY CBC & Chemistry Diagram: 11/12/19 12:50 11/12/19 12:50 - ADDITIONAL ORDERS Additional order review: Laboratory Results 11/12/19 11/12/19 11/12/19 12:50 12:50 12:50 PT with INR 33.20 H INR 2.78 H PTT (Actin FS) 42.0 H Sodium 137 Potassium 4.1 Chloride 106 Carbon Dioxide 23 Anion Gap 9 BUN 55.9 H Creatinine 2.7 H Est GFR (CKD-EPI)AfAm 25.57 Est GFR (CKD-EPI)NonAf 22.06 Random Glucose 110 H Lactic Acid 1.0 Calcium 8.8 Total Bilirubin 0.6 AST 50 H ALT 35 Alkaline Phosphatase 80 Total Protein 6.8 Albumin 3.1 L 11/12/19 12:50 RBC 3.46 L MCV 90.3 MCHC 32.7 RDW 19.5 H MPV 10.5 D Neutrophils % 78.6 Lymphocytes % 9.2 Monocytes % 10.7 H Eosinophils % 1.0 Basophils % 0.5 - Medications Given in the ED: ED Medications Discontinued Medications Generic Name Dose Route Start Last Admin Trade Name Freq PRN Reason Stop Dose Admin Piperacillin Sod/Tazobactam 50 mls @ 100 mls/hr 11/12/19 13:06 11/12/19 14:33 Sod 3.375 gm/ Dextrose IVPB 11/12/19 13:35 100 mls/hr ONCE ONE Administration Protocol Vancomycin HCl 1,000 mg 11/12/19 13:06 11/12/19 14:47 Vancomycin (Pre-Docked) IVPB 11/12/19 13:07 1,000 mg ONCE ONE Administration Protocol <Elizabeth Andersen - Last Filed: 11/12/19 17:46> Medical Decision Making - Medical Decision Making 11/12/19 12:41 Patient with a history of insulin-dependent diabetes, hypertension, hyperlipidemia, CAD, A. fib on Xarelto, CKD presenting with aide with complaint of 2-day history of worsening swelling to left lower extremity and redness with multiple open wounds of bilateral feet. Patient and aide unsure how wound happened but aid report patient had blister which erupted and now have an open wound to bilateral feet. Patient denies fever. Patient reported being seen in wound care for chronic diabetic foot ulcers with last visit 3 weeks ago. Denies any other symptoms Exam significant for diffuse swelling to left lower extremity with 2 cm area of superficial wound and redness over wound to hines of left leg. And under the similar wound to hines of right leg and 1 cm wound to right great toe. No bleeding to site. Diffuse erythema to dorsum of left foot. No tenderness to calf muscle. Given patient history of multiple comorbidities and diffuse cellulitis to feet, patient will need IV antibiotics and duplex to make sure no DVT to left leg due to increased swelling to left leg compared to right leg. CBC, CMP and blood cultures ordered. Duplex ultrasound ordered to rule out DVT. Patient with given a dose of Vanco and Zosyn antibiotics IV and will admit for IV antibiotics and consult to wound care 11/12/19 15:20 CBC and chemistry lab shows no acute abnormality. Duplex ultrasound shows no left lower extremity DVT. Patient received dose of Comycin and Zosyn. Patient refused admission and requests rather be treated on outpatient with p.o. antibiotics and will follow-up with wound care clinic. Patient has mental capacity to sign out AMA and patient educated on the risk of signing out AMA and leaving AGAINST MEDICAL ADVICE. Patient voiced understanding and signed AMA form and will follow-up with wound care. Rx for clindamycin sent to patient pharmacy for cellulitis and referral to wound care given to patient <Brennon Ramírez - Last Filed: 11/12/19 15:20> - Medical Decision Making The patient was seen and evaluated in conjunction with midlevel provider under my direct supervision, ancillary studies were reviewed. I agree with the plan as outlined with SINAI Ramírez. HPI, workup/dispo as outlined. VS reviewed, wnl. no fever LLE swelling, with lower hines with open superficial skin breakdown, s/p breakage of blister RLE also with dry ulcerative change labs and lytes wnl. duplex neg for dvt iv vanc/zosyn planned, given h/o chronic wounds, diabetes and wound care need, not candidate for dalvance pseudomonas risk/mrsa risk suggested admission, but pt adamant and refused The patient has requested to leave the ED against medical advice. The patient reason(s) for leaving include, but are not limited to, the following: wanting to go home and outpatient care. Discussion at the bedside with patient (and health aide). Pt has capacity to make medical decisions. Discussed indications for treatment and admission, management plan, risks and benefits. I believe this patient is of sound mind and competent to refuse medical care. The patient is responding and asking questions appropriately. The patient is oriented to person, place and time. There is no evidence of psychosis, delusions/hallucinations, suicidal/homicidal ideation, altered mental status or intoxication. The patient demonstrates a normal mental capacity to make decisions regarding their healthcare. The patient is clinically sober and does not appear to be under the influence of any illicit drugs at this time. Patient understands the nature of the condition and treatment plan, advised of the potential risks, in layman terms, of leaving AMA which include, but are not limited to: cardiopulmonary arrest, severe infection, blood stream infection, dehydration, bleeding, multiorgan failure including liver, kidney, brain, lung and heart, myocardial infarction, arrhythmia, stroke, seizure, respiratory failure, delay in diagnosis and management, loss of current lifestyle, loss of functional status, coma, limb loss/severe disability and . Alternatives have been offered - the patient remains steadfast in their wish to leave. The patient has been advised that should they change their mind they are welcome to return to this hospital, or any other, at any time - call 911 immediately if severe life threatening symptoms or concerns occur. The patient understands that in no way does an AMA discharge mean that I do not want them to have the best medical care available. To this end, I have provided appropriate prescriptions, referrals, and discharge instructions. Patient will be treated with clindamycin x 1 wk and close followup with primary doctor and/or specialists (Dr Myrick, vascular/wound care) as provided/discussed for clinical reevaluation. Patient verbalized understanding of information provided, questions answered. The patient did sign AMA paperwork. The above discussion was witnessed by another member of staff, RN 11/12/19 17:43 11/12/19 17:43 <Elizabeth Andersen - Last Filed: 11/12/19 17:46> Discharge - Discharge Information Problems reviewed: Yes - Admission No <Brennon Ramírez - Last Filed: 11/12/19 15:20> <Elizabeth Andersen - Last Filed: 11/12/19 17:46> - Discharge Information Clinical Impression/Diagnosis: Cellulitis of left foot CKD (chronic kidney disease) Qualifiers: Chronic kidney disease stage: stage 4 (severe) Qualified Code(s): N18.4 - Chronic kidney disease, stage 4 (severe) BPH (benign prostatic hyperplasia) Qualifiers: Lower urinary tract symptom presence: symptoms absent Qualified Code(s): N40.0 - Benign prostatic hyperplasia without lower urinary tract symptoms Afib Qualifiers: Atrial fibrillation type: unspecified Qualified Code(s): I48.91 - Unspecified atrial fibrillation HLD (hyperlipidemia) Qualifiers: Hyperlipidemia type: unspecified Qualified Code(s): E78.5 - Hyperlipidemia, unspecified HTN (hypertension) Qualifiers: Hypertension type: essential hypertension Qualified Code(s): I10 - Essential ( primary) hypertension Diabetes Qualifiers: Diabetes mellitus type: type 2 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: with alf use Diabetes mellitus complication status: without complication Qualified Code(s): E11.9 - Type 2 diabetes mellitus without complications Open leg wound Qualifiers: Encounter type: initial encounter Laterality: unspecified laterality Qualified Code(s): S81.809A - Unspecified open wound, unspecified lower leg, initial encounter Condition: Stable Disposition: AGAINST MEDICAL ADVICE - Additional Discharge Information Prescriptions: Clindamycin [Cleocin -] 300 mg PO TID #21 capsule - Follow up/Referral Referrals: Horacio Myrick DO [Staff Physician] - (call to make appointment) - Patient Discharge Instructions Patient Printed Discharge Instructions: DI for Wound Infection Additional Instructions: Note: The patient insists on leaving the emergency dept and is signing out against medical advice. The patient understands the risks and complications that may result from the refusal of medical care and admission which includes and permanent disability. The patient has the mental capacity of understanding the risks of refusing care and is capable of making an informed decision. The patient was instructed to return to the emergency department should he change his mind regarding medical care or should his condition worsen. The patient signed the Against Medical Advice form. - Post Discharge Activity
[2019-11-12] MEDS ORDERED: VANCOMYCIN 1 GM in D5W (PRE-DOCKED) 1,000 MG/250 ML IVPB ONE (13:06)
[2019-11-12] MEDS ORDERED: PIPERACILLIN/TAZOB 3.375 GM 3.375 GM in DEXTROSE 5%-WATER - 50 ML IVPB ONE (13:06)
[2019-11-12 13:24] LABS: BASO % 0.5 % (0-2.0); HEMATOCRIT 31.3 % (35.4-49); HEMOGLOBIN 10.2 GM/dL (11.7-16.9); LYMPH % 9.2 % (8-40); MCH 29.6 pg (25.7-33.7); MCHC 32.7 g/dl (32.0-35.9); MEAN CELL VOLUME 90.3 fl (80-96); MEAN PLT VOLUME 10.5 fl (7.5-11.1); MONO % 10.7 % (3.8-10.2); NEUT % 78.6 % (42.8-82.8); PLATELET COUNT 166 K/MM3 (134-434); RBC 3.46 M/mm3 (4.00-5.60); RDW 19.5 % (11.9-15.9); WHITE BLOOD COUNT 7.1 K/mm3 (4.0-10.0)
[2019-11-12 13:37] LABS: INR 2.78 (0.83-1.09); PROTHROMBIN TIME (PATIENT) 33.2 SEC (9.7-13.0)
[2019-11-12] MEDS ORDERED: VANCOMYCIN 1 GRAM (PRE-DOCKED) 1,000 MG/250 ML BAG IVPB ONE (13:54)
[2019-11-12] MEDS ORDERED: PIPERACILLIN/TAZOB 3.375 GM 3.375 GM/50 ML BAG IVPB ONE (13:55)
[2019-11-12 14:10] LABS: ALBUMIN 3.1 g/dl (3.4-5.0); BILIRUBIN,TOTAL 0.6 mg/dL (0.2-1); BLOOD UREA NITROGEN 55.9 mg/dL (7-18); CALCIUM 8.8 mg/dL (8.5-10.1); CREATININE 2.7 mg/dL (0.55-1.3); POTASSIUM 4.1 mmol/L (3.5-5.1); TOT PROT 6.8 g/dl (6.4-8.2)
== END 2019-11-12 15:30 | disposition left against medical advice (07) ==
LOC: JER 11:10
DX: L03.116 Cellulitis of left lower limb (principal); N18.4 Chronic kidney disease, stage 4 (severe); N40.0 Benign prostatic hyperplasia without lower urinary tract symptoms; I48.91 Unspecified atrial fibrillation; E11.9 Type 2 diabetes mellitus without complications; I10 Essential (primary) hypertension; E78.5 Hyperlipidemia, unspecified; Z79.01 Long term (current) use of anticoagulants; E11.22 Type 2 diabetes mellitus with diabetic chronic kidney disease; I13.10 Hypertensive heart and chronic kidney disease without heart failure, with stage 1 through stage 4 chronic kidney disease, or unspecified chronic kidney disease; Z79.4 Long term (current) use of insulin; Z88.8 Allergy status to other drugs, medicaments and biological substances; M79.606 Pain in leg, unspecified; M79.672 Pain in left foot; M79.671 Pain in right foot
CPT/HCPCS: 36415; 80053; 83605; 85025; 85610; 85730; 87040; 93971-TC; 96365; 96375; 99285-25